=== PATIENT | female | born 1965 | race Caucasian/White ===

== ENCOUNTER 2018-03-22 01:24 | Inpatient (IN) | payer BC, SELFPAY ==
[2018-03-22] VITALS (19 sets, daily range): BP systolic 123–152; BP diastolic 64–95; PULSE 60–85; RESP 12–28; TEMP 36.1–36.9; O2SAT 92–100; BMI 47.2
--- NOTE | 2018-03-22 | PATH_ITS ---
[facility] Accession Number: [id number] . 01 Material submitted: . GALLBLADDER AND CONTENTS . 02 Diagnosis: Gallbladder: Cholelithiasis with associated chronic cholecystitis. Small benign lymph node. MRV/03/24/2018 . 02 Electronically signed: . Geovanny Thurman MD, Pathologist NPI- [id number] . 01 Gross description: . Received in formalin, labeled gallbladder and contents, is an opened gallbladder (length-8.2 cm, diameter-3.4 cm) with sarmiento-pink, smooth, shiny serosa and a patent cystic duct. A possible lymph node (0.4 x 0.2 x 0.1 cm) is identified. The lumen contains fragmented brown gritty calculi (4.2 x 2.5 x 1.0 cm in aggregate). The mucosa is lim, smooth and flat. The wall is up to 0.2 cm thick. No nodules, masses or lesions are identified. Section code: (A1) cystic duct resection margin and two serial sections from the body; (A2) two longitudinal sections from the fundus; (A3) one intact lymph node. ([id number]) /MRV . 02 Pathologist provided ICD-10: K80.64 . 02 CPT . 228788 Performed at: 01 [facility] [address] [facility], [place], [place] [id number] MD Jefferson Jones MD Phone: [phone] Performed at: 02 [facility] [address] [place], [place] [id number] MD Pito Pa MD Phone: [phone]
[2018-03-22 02:31] LABS: Alanine Aminotransferase 65 IU/L (9-52); Albumin 4.3 g/dL (3.5-5.0); Albumin Globulin Ratio 1.6 (1.0-2.8); Alkaline Phosphatase 61 U/L (38-126); Aspartate Aminotransferase 46 IU/L (14-36); BUN Creatinine Ratio 13.3 (6-22); Blood Urea Nitrogen 12 mg/dL (7-17); Calcium 9.6 mg/dL (8.4-10.2); Carbon Dioxide 26 mmol/L (22-32); Chloride 105 mmol/L (98-107); Estimated Glomerular Filt Rate > 60.0 mL/min (>60); Globulin 2.7 g/dL (1.7-4.1); Glucose 137 mg/dL (70-100); HEMOLYSIS 21 (0-50); Lipase 161 U/L (23-300); Potassium 3.9 mmol/L (3.4-5.1); Sodium 142 mmol/L (137-145)
[2018-03-22 02:38] LABS: Hematocrit 41.8 % (36-46); Hemoglobin 14.1 g/dL (12.0-16.0); Mean Corpuscular HGB Conc 33.8 % (30-36); Mean Corpuscular Hemoglobin 29.4 PG (26-34); Mean Corpuscular Volume 86.8 fL (80-100); Red Blood Cell Count 4.81 X10^6/uL (4.0-5.2); White Blood Cell Count 8.7 X10^3/uL (4.5-11.0)
[2018-03-22 02:39] LABS: Add Manual Diff / Slide Review NO; Basophils Percent Auto 1.1 % (0-2); Eosinophils Percent Auto 1.1 % (2-4); Lymphocytes Percent Auto 22.4 % (25-40); Monocytes Percent Auto 6.5 % (3-14); Neutrophils Absolute Auto 6000 /uL (3000-5900); Neutrophils Percent Auto 68.9 % (50-75); Platelet Count 185 X10^3/uL (150-400)
[2018-03-22 02:47] LABS: Troponin I < 0.012 ng/mL (0.01-0.034)
[2018-03-22] MEDS: ONDANSETRON 4 MG/2 ML INJ IV (02:53)
[2018-03-22] MEDS: PANTOPRAZOLE 40 MG VIAL IV (02:53)
[2018-03-22] MEDS: MORPHINE 2 MG/ML INJ IV ×6 (02:53→22:38)
--- NOTE | 2018-03-22 02:54 | ED.ABDPAIN ---
HPI - Abdominal Pain General Chief Complaint: Abdominal Pain Stated Complaint: THINKS SHES HAVING GALLBLADDER ISSUES Time Seen by Provider: 03/22/18 02:16 Source: patient Mode of arrival: ambulatory Limitations: no limitations History of Present Illness HPI narrative: patient is a 53-year-old female who presents with right upper quadrant pain. She said it woke her from her sleep and she has been vomiting nonstop. She was well earlier in the day without any issues. She had a couple vital is on and some soup for dinner. She says she has a known history of gallstones but they have not really been causing any problems. She says her pain is radiating around her back not really up to her shoulder. No shortness of breath chest pain or heart palpitations. MD complaint: abdominal pain Related Data Home Medications Medication Instructions Recorded Confirmed LEVOTHYROXINE SODIUM 100 mcg PO QDAY #0 08/17/11 03/22/18 MULTIVITAMIN (One Daily 1 tab PO Q DAY #0 08/17/11 03/22/18 Multivitamin) cetirizine [Zyrtec] 10 mg PO DAILY 03/22/18 03/22/18 exenatide microspheres [Bydureon] 2 mg SUB-Q WEEKLY 03/22/18 03/22/18 metformin 1,000 mg PO BID 03/22/18 03/22/18 naltrexone 50 mg PO BID 03/22/18 03/22/18 rosuvastatin 40 mg PO BEDTIME 03/22/18 03/22/18 ursodiol 300 mg PO BID 03/22/18 03/22/18 zonisamide 100 mg PO BID 03/22/18 03/22/18 Allergies Allergy/AdvReac Type Severity Reaction Status Date / Time hydrocodone [HYDROCODONE] Allergy Severe HALLUCINATI Verified 03/22/18 06:54 ON aspirin [ASPIRIN] Allergy Mild RED SPOTS Verified 03/22/18 06:54 ALL OVER HER BODY ibuprofen [IBUPROFEN] Allergy Mild RED SPOTS Verified 03/22/18 06:54 ALL OVER HER BODY Review of Systems Review of Systems GENERAL: Denies chills, fatigue, malaise, fever, sweats, travel HEENT: Denies sinus pain, ear pain, sore throat, difficulty swallowing, neck pain RESPIRATORY: Denies dyspnea, cough, wheezing, hemoptysis, sputum. CARDIOVASCULAR: Denies chest pain, palpitations, orthopnea, edema GASTROINTESTINAL: See HPI : Denies dysuria, frequency, incontinence, hematuria, urinary retention, flank pain. MUSCULOSKELETAL: Denies weakness, joint pain, or bony pain SKIN: No rash, no erythema, no pruritus NEUROLOGIC: Denies weakness, dizziness, headache, numbness, change in speech, confusion PSYCHIATRIC: No concerning psychosocial issues. 12 point review of systems is negative except for those stated above and HPI [facility] Medical History Hypothyroid (Acute) Exam Initial Vital Signs Initial Vital Signs: Vital Signs Temperature 97.6 F 03/22/18 01:46 Pulse Rate 62 03/22/18 01:46 Respiratory Rate 18 03/22/18 01:46 Blood Pressure 150/76 H 03/22/18 01:46 Pulse Oximetry 100 03/22/18 01:46 GENERAL: female actively vomiting HEENT: Head atraumatic,EOMI, pupils reactive, CARDIOVASCULAR: Regular rate and rhythm without murmurs, rubs or gallops. RESPIRATORY: Breath sounds equal bilaterally, no wheezes rales or rhonchi. ABDOMEN: Soft, obese positive Jiménez sign no right lower quadrant pain no guarding no rebound : No CVA tenderness EXTREMITIES: Normal range of motion, no clubbing or edema. Neurovascularly intact NEUROLOGICAL: Alert and oriented x4.Normal gait and speech. Cranial nerves II through XII grossly intact. SKIN: Warm, dry, no laceration, no petechiae, no rashes or lesions. Course Orders Ordered: ED Orders 03/22/18 EKG-12 Lead Routine 03/22/18 02:22 CBC [Complete Blood Count AUTO DIFF] Stat CMP [Comprehensive Metabolic Panel] Stat Lipase Stat Troponin I Stat 03/22/18 03:15 US abdomen complete Stat Discontinued Medications Levofloxacin (Levaquin) 750 mg in 150 mls @ 100 mls/hr IV NOW ONE Stop: 03/22/18 06:38 Last Admin: 03/22/18 05:30 Dose: 100 mls/hr Morphine Sulfate (Morphine) 2 mg IV NOW ONE Stop: 03/22/18 02:47 Last Admin: 03/22/18 02:53 Dose: 2 mg Morphine Sulfate (Morphine) 2 mg IV NOW ONE Stop: 03/22/18 04:25 Last Admin: 03/22/18 04:26 Dose: 2 mg Ondansetron HCl (Zofran) 4 mg IV NOW ONE Stop: 03/22/18 02:43 Last Admin: 03/22/18 02:53 Dose: 4 mg Pantoprazole Sodium (Protonix) 40 mg IV NOW ONE Stop: 03/22/18 02:47 Last Admin: 03/22/18 02:53 Dose: 40 mg Consultations Consultation #1: Dr. Hernandez, Surgery agrees cholecystectomy is necessary. Recommend admission to hospitalists and a dose of broad-spectrum IV antibiotics Consultation #2: accepts patient Time: 06:57 Consultation #3: patient is actually a doctor cousins patient. Dr. Cotto happily accepts patient for admission. Time: 06:57 Vital Signs - 8 hr 03/22/18 01:46 03/22/18 02:41 03/22/18 06:41 Temperature 97.6 F Pulse Rate 62 61 64 Respiratory Rate 18 28 H Blood Pressure 150/76 H Blood Pressure [Right Arm] 127/73 H Pulse Oximetry 100 96 95 MDM - Abdominal Pain Lab Data Result diagrams: 03/22/18 02:22 03/22/18 02:22 Lab Results 03/22/18 03/22/18 Range/Units 02:22 02:22 WBC 8.7 (4.5-11.0) X10^3/uL RBC 4.81 (4.0-5.2) X10^6/uL Hgb 14.1 (12.0-16.0) g/dL Hct 41.8 (36-46) % MCV 86.8 (80-100) fL MCH 29.4 (26-34) PG MCHC 33.8 (30-36) % RDW 15.0 H (11.6-14.8) % Plt Count 185 (150-400) X10^3/uL Neut % (Auto) 68.9 (50-75) % Lymph % (Auto) 22.4 L (25-40) % [place]racken % (Auto) 6.5 (3-14) % Eos % (Auto) 1.1 L (2-4) % Baso % (Auto) 1.1 (0-2) % Neut # (Auto) 6000 H (5911-5803) /uL Sodium 142 (137-145) mmol/L Potassium 3.9 (3.4-5.1) mmol/L Chloride 105 (98-107) mmol/L Carbon Dioxide 26 (22-32) mmol/L BUN 12 (7-17) mg/dL Creatinine 0.90 (0.52-1.04) mg/dL Estimated GFR > 60.0 (>60) mL/min BUN/Creatinine Ratio 13.3 (6-22) Glucose 137 H (70-100) mg/dL Calcium 9.6 (8.4-10.2) mg/dL Total Bilirubin 1.0 (0.2-1.3) mg/dL AST 46 H (14-36) IU/L ALT 65 H (9-52) IU/L Alkaline Phosphatase 61 (38-126) U/L Troponin I < 0.012 (0.01-0.034) ng/mL Total Protein 7.0 (6.3-8.2) g/dL Albumin 4.3 (3.5-5.0) g/dL Globulin 2.7 (1.7-4.1) g/dL Albumin/Globulin Ratio 1.6 (1.0-2.8) Lipase 161 (23-300) U/L Imaging Data US - abdomen: Radiologist's impression: Nightshift: cholelithiasis. hepatosplenomegaly. Hepatic steatosis gallstone lodged in region of the neck. 3.3 mm thickness. ECG Data Attestation: I personally reviewed and interpreted this ECG as follows: Prior ECG tracings: available for review Interpretation: sinus bradycardia rate [address] changes normal intervals Discharge Plan Departure Patient Disposition: Admitted as Observation Clinical Impression: Cholelithiasis Interventions: ED Discharge Assessment Last Done: 03/22/18 06:53
--- NOTE | 2018-03-22 03:15 | DI.US.S_ITS ---
PROCEDURE: US ABDOMEN COMPLETE INDICATIONS: ruq pain TECHNIQUE: Real-time scanning was performed of the abdominal and retroperitoneal organs, with image documentation. COMPARISON: [facility], CT, KIDNEY/ URETER/BLADDER, 08/03/2014, 14:38. FINDINGS: Liver: Liver is diffusely increased in echogenicity. No focal hepatic abnormalities identified. Normal hepatic size. Gallbladder: Several gallstones are present, one of which may be impacted within the gallbladder neck/cystic duct measure 1.2 cm. Gallbladder wall is mildly thickened measuring 3.3 mm. Possible trace pericholecystic fluid present and positive sonographic Jiménez sign. Biliary ducts: Intrahepatic bile ducts are non-dilated. Extrahepatic bile duct caliber measures 9.0 mm. Normal is 6-7 mm or less in diameter, or 10 mm or less post-cholecystectomy. Pancreas: Visualized portions of the pancreas are sonographically normal. Spleen: Spleen is enlarged in size and homogeneous in echotexture. Kidneys: Kidneys are normal in size and echotexture. Right kidney measures 13.1 cm long; left kidney measures 10.7 cm long. No hydronephrosis or nephrolithiasis. No solid masses. Aorta: Not visualized. Iliacs: Not visualized. IVC: Intrahepatic inferior vena cava is patent. Miscellaneous: No free abdominal fluid. IMPRESSION: 1. Increased hepatic echogenicity noted possibly related to hepatic steatosis but other sources of hepatocellular disease cannot be excluded. Recommend clinical correlation. 2. Cholelithiasis with probable gallstone impaction within the gallbladder neck or cystic duct as well as mild gallbladder wall thickening and pericholecystic fluid. Sequela of findings suggest the possibility of developing cholecystitis 3. Prominence of the extrahepatic bile duct and bile duct stone and/or other pathology cannot be excluded. Correlate with LFTs. Dr. Parikh telephoned with results at 0800 hrs. 03/22/2018. Dictated by: Alejandro LIZ Interpreted: Barbra Alaniz MD on 03/22/2018 at 7:54 Approved by: Barbra Alaniz M.D. on 03/22/2018 at 15:05
[2018-03-22] MEDS: levoFLOXacin 750 MG/150 ML PIGGYBACK 100 MG IV (05:30)
--- NOTE | 2018-03-22 08:00 | PC.NURSE ---
White metal ring with multiple clear stone x 2;
--- NOTE | 2018-03-22 08:51 | PM.HP.1 ---
History of Present Illness Date Patient Seen: 03/22/18 Time Patient Seen: 08:54 Chief complaint: THINKS SHES HAVING GALLBLADDER ISSUES Narrative: Patient is a 53-year-old woman with a history of impaired fasting glucose/diabetes type 2, well known to me, presented to the emergency room after approximately 12 hr of epigastric abdominal pain. Patient reports that she had a nice meal last night, and she started having pain. the pain continued to radiate to her back throughout the evening, even after taking antacids. No fever chills. She did have some vomiting in the emergency room. In the emergency room, patient was found to have a stone in the neck of the gallbladder and felt to be the etiology of the patient's symptoms. Patient was admitted in anticipation of a cholecystectomy. Patient History Medical History Hypothyroid (Acute) Impaired fasting glucose (Acute) Post hysterectomy menopause (Acute) Surgical History S/P (Acute) S/P small bowel resection (Acute) Family & Social History Family History: Reviewed 03/22/18 by Dipika Olivera MD Social History: Occasional alcohol. Does not smoke. Meds Home Medications Medication Instructions Recorded Confirmed Type LEVOTHYROXINE SODIUM 100 mcg PO QDAY #0 08/17/11 03/22/18 History MULTIVITAMIN (One Daily 1 tab PO Q DAY #0 08/17/11 03/22/18 History Multivitamin) cetirizine [Zyrtec] 10 mg PO DAILY 03/22/18 03/22/18 History exenatide microspheres [Bydureon] 2 mg SUB-Q WEEKLY 03/22/18 03/22/18 History metformin 1,000 mg PO BID 03/22/18 03/22/18 History naltrexone 50 mg PO BID 03/22/18 03/22/18 History rosuvastatin 40 mg PO BEDTIME 03/22/18 03/22/18 History ursodiol 300 mg PO BID 03/22/18 03/22/18 History zonisamide 100 mg PO BID 03/22/18 03/22/18 History Allergies Allergy/AdvReac Type Severity Reaction Status Date / Time hydrocodone [HYDROCODONE] Allergy Severe HALLUCINATI Verified 03/22/18 06:54 ON aspirin [ASPIRIN] Allergy Mild RED SPOTS Verified 03/22/18 06:54 ALL OVER HER BODY ibuprofen [IBUPROFEN] Allergy Mild RED SPOTS Verified 03/22/18 06:54 ALL OVER HER BODY Review of Systems Review of Systems All systems reviewed & are unremarkable except as noted in HPI and below Exam Vital Signs (past 8 hours): - GENERAL: Well-developed well-nourished woman who appears uncomfortable. HEENT: Normocephalic, atraumatic, pupils equal and reactive to light and accommodation. Extraocular movements are intact. Neck supple, no lymphadenopathy. LUNG: Clear to auscultation bilaterally. No wheeze or crackles or rhonchi. No increased work in breathing. CV: Regular rate and rhythm. No murmurs rubs or gallops. ABDOMEN: SOFT DIFFUSELY TENDER. DEFINITE EPIGASTRIC TENDERNESS. AFFECT: Alert and oriented X3. Conversational and appropriate. 03/22/18 01:46 03/22/18 02:41 03/22/18 06:41 Temperature 97.6 F Pulse Rate 62 61 64 Respiratory Rate 18 28 H Blood Pressure 150/76 H Blood Pressure [Right Arm] 127/73 H Pulse Oximetry 100 96 95 03/22/18 07:15 03/22/18 07:58 Temperature 98.4 F 98.4 F Pulse Rate 64 68 Respiratory Rate 16 18 Blood Pressure 126/64 H Blood Pressure [Right Arm] 124/64 H Pulse Oximetry 98 Oxygen Delivery Method Room Air Objective Labs Result Diagrams: 03/22/18 02:22 03/22/18 02:22 Labs: Laboratory Results - last 24 hr 03/22/18 03/22/18 02:22 02:22 WBC 8.7 RBC 4.81 Hgb 14.1 Hct 41.8 MCV 86.8 MCH 29.4 MCHC 33.8 RDW 15.0 H Plt Count 185 Neut % (Auto) 68.9 Lymph % (Auto) 22.4 L [place] % (Auto) 6.5 Eos % (Auto) 1.1 L Baso % (Auto) 1.1 Neut # (Auto) 6000 H Sodium 142 Potassium 3.9 Chloride 105 Carbon Dioxide 26 BUN 12 Creatinine 0.90 Estimated GFR > 60.0 BUN/Creatinine Ratio 13.3 Glucose 137 H Calcium 9.6 Total Bilirubin 1.0 AST 46 H ALT 65 H Alkaline Phosphatase 61 Troponin I < 0.012 Total Protein 7.0 Albumin 4.3 Globulin 2.7 Albumin/Globulin Ratio 1.6 Lipase 161 Assessment & Plan (1) Hypothyroid: Current visit: Yes Status: Acute (2) Cholelithiasis: Qualifiers: Biliary obstruction: without biliary obstruction Cholangitis acuity: Cholangitis presence: Cholecystitis acuity: Cholecystitis presence: without cholecystitis Cholelithiasis location: gallbladder Qualified Code(s): K80.20 - Calculus of gallbladder without cholecystitis without obstruction Current visit: Yes Status: Acute Plan: Assessment/Plan Narrative: 1. Symptomatic cholelithiasis. Anticipate cholecystectomy. Continue Levaquin as ordered per the ER. Surgery consulted. 2. Diabetes type 2. Patient previously on metformin. Will do a low dose sliding scale for now when patient starts taking p.o. will restart metformin. Patient is also on a biweekly injectable at will hold this until patient is taking p.o.. 3. Hypothyroidism. Restart levothyroxine postoperatively. 4. Naltrexone. Would recommend holding until patient is no longer on narcotics of course, and her pain is well controlled. 5. Zonegran use. Will restart when patient able to take p.o.. 6. Code status full code 7. DVT prophylaxis. Per surgery. 8. Anticipate discharge when patient is stable postoperatively.
--- NOTE | 2018-03-22 10:45 | PC.NURSE ---
0865 Pt arrived to room 210 via stretcher from ED. Pt A,OX3, denies pain at this time. IV fluids infusing. 1045 Pt son at bedside now. Pt sched for surgery today. No c/o.
--- NOTE | 2018-03-22 11:10 | PC.NURSE ---
1108 Pt gone to OR via bed.
--- NOTE | 2018-03-22 11:55 | SUR.OPER ---
Supine on padded OR bed, head on pillow, arms secured on padded arm boards at <90 degrees abduction, legs uncrossed, safety belt at thigh, tape over blanket over lower legs. footboard on bed
--- NOTE | 2018-03-22 12:09 | CM.DANOTE ---
DCP/Assessment: Patient admitted to [facility] under OBS status today. BARREL CAP SETTER unable to assess because patient leaving floor this AM for surgery. EMR reviewed and brief assessment based on that information completed (below). P: CM team to continue to follow for d/c planning needs. Anticipate that patient will d/c home when medically stable. JARETT Boogie Discharge Planning/Care Management CM Discharge Assessment Start: 03/22/18 12:02 Freq: Status: Active Protocol: Document 03/22/18 12:03 KJS (Rec: 03/22/18 12:09 [facility] [id number]) Discharge Planning Assessment Assigned Machine Maintenance Technician JARETT/Carole History Provided By Medical Record Has Patient been admitted in last 30 No days? Prior Living Arrangements House Household Members spouse children Comment Per medical record, patient I in ADL's. Independent with ADL's Yes Is patient alert and oriented? Unable to interview, off floor for surgery. Discharge Plan Home Additional Comment Reviewed chart. Patient is a 53yr old female admitted to [facility] under OBSs status with abdominal pain. PCP is Dr. Olivera. Primary payor is 1) [facility] out of [facility]. Attempted to meet with patient this AM. Patient came into [facility] Emergency Department through the night. Patient headed off floor for lap terri with Dr. Alvarez therefore, could not see today. It is anticipated that patient will d/c home with supportive family when medically stable. Review Status In Process Next Review Type Continued Stay Review
[2018-03-22] MEDS: BUPIVACAINE 0.5% W/ EPI (PF) VIAL 30 ML INJ (12:21)
[2018-03-22] MEDS: HYDROMORPHONE 2 MG INJ 0.5 MG IV ×4 (13:12→13:27)
[2018-03-22] MEDS: fentaNYL 100 MCG/2 ML INJ 50 MCG IV ×4 (13:29→14:09)
[2018-03-22] MEDS: ACETAMINOPHEN 325 MG TABLET PO (13:41)
--- NOTE | 2018-03-22 14:24 | PC.NURSE ---
1420 Pt returned to room post op Lap eugenia,PACU, Pt is sleepy, easily aroused. 5 lap sites to abd, sabags intact. Pt has a C pap at home, the son is to go home & bring in for use. Pt on O2 4LNC, sats 95%. Visitors at bedside. VS WNL.
[2018-03-22] MEDS: LACTATED RINGERS 1,000 ML 42 ML IV (16:00)
[2018-03-22] MEDS: LORazepam 1 MG TABLET PO (16:30)
--- NOTE | 2018-03-22 17:04 | HP_ITS ---
DATE OF SERVICE: 03/22/2018 HISTORY OF PRESENT ILLNESS: She was admitted in the snuff blender hours of 03/22/2018, admitted actually by the hospitalist, who probably also has a history and physical. This is a brief surgically directed history and physical. She is a 53-year-old white female patient who had the acute onset of right upper quadrant abdominal pain last night. Never has had this before. The pain became centered in the epigastrium and then piercing into the right subscapular area and the right flank. It was severe. She came in the emergency room about 1 o'clock this morning. Among other things, her laboratory and imaging revealed that she has impacted gallstones in the neck of the gallbladder with some thickening. No pericholecystic fluid. She has a normal white count. She has had numerous prior abdominal operations involving a partial hysterectomy, which then became complicated with what sounds like a partial bowel obstruction and then a partial small bowel resection. So she therefore has had numerous lower abdominal procedures through a Pfannenstiel incision. She has had no midline surgery. I have explained to her in great detail whereas we will attempt cholecystectomy with a laparoscope, that it is possible that we may have to do open surgery to remove her gallbladder. She understands that completely and agrees to the procedure. She has been in the hospital now for a few hours and has received IV Zosyn. She is morbidly obese with a BMI of 44 and has diabetes related to metabolic syndrome and takes metformin for that. She also takes thyroid medication and a combination of medications to help stimulate her own insulin production. She does not have her medication list with her. ALLERGIES: SHE HAS KNOWN ALLERGIES TO ASPIRIN AND IBUPROFEN. REVIEW OF SYSTEMS: System review is negative for exertional chest pain or unusual shortness of breath. GI: As mentioned in HPI. : As mentioned also in HPI. RANCH SUPERVISOR: Again, mentioned in HPI. NEUROLOGIC: Denies strokes, TIAs, or seizures. PHYSICAL EXAMINATION VITAL SIGNS: Blood pressure 130/80, heart rate in the 80s. HEENT: Ears, nose, and throat are normal. NECK: No adenopathy. LUNGS: Distant breath sounds. No rales or wheezes. HEART: Regular rhythm. No murmur. ABDOMEN: She is morbidly obese. Has no organomegaly that is palpable. She has some moderate right subcostal tenderness. No masses appreciated. The remaining physical is unremarkable except for her morbid obesity. DIAGNOSES: Acute cholecystitis and cholelithiasis with impacted cystic duct stone. We have noted on her ultrasound that her common duct is normal, and her liver chemistries are normal. PLAN: We are planning a laparoscopic cholecystectomy with no cholangiogram. WagnerNegar marcelino - Vince/hussain doc#: [id number]/job#: [id number] dd: 03/22/2018 10:36:00 dt: 03/22/2018 16:50:00 DICTATING MD/COPIES TO: Man Hernandez MD COPIES MNE: CESAR
[2018-03-23] VITALS (13 sets, daily range): BP systolic 138–162; BP diastolic 78–107; PULSE 65–109; RESP 14–20; TEMP 36.2–37; O2SAT 89–96
[2018-03-23] MEDS: MORPHINE 2 MG/ML INJ IV ×7 (02:27→17:46)
--- NOTE | 2018-03-23 07:58 | OP_ITS ---
DATE OF SERVICE: 03/22/2018 PREOP DIAGNOSES: Acute cholecystitis with impacted cystic duct stone. POSTOP DIAGNOSES: Acute cholecystitis with impacted cystic duct stone. PROCEDURE: Laparoscopic cholecystectomy. SURGEON: Man Hernandez MD INDICATIONS: The patient is morbidly obese with a BMI of 47. She had an impacted cystic duct stone noted on emergency room sonography and is prepared for laparoscopic cholecystectomy. She is aware that she may need an open procedure because of prior abdominal surgery and her marked obesity. DESCRIPTION OF PROCEDURE: The patient was properly identified during a surgical pause. Under general endotracheal anesthesia, she was prepped and draped in a sterile fashion with exposure of the upper abdomen. A 5 mm incision was made above and to the right of the umbilicus. Using an Optiview direct view port, port entry was placed into the peritoneal cavity without any visceral injury and pneumoperitoneum safely established. Because of her massive size, I placed 4 additional right upper quadrant ports, , and the rest were 5's. The larger ports, one for the operating instruments, and the other for a fan retractor to hold the duodenum and omentum away from the klaudia hepatis. Once exposure was gained, I aspirated the gallbladder. It was acutely inflamed and very edematous, early hydrops. I cauterized a hole in the dome of the gallbladder and then aspirated the contents. Then, I was able to grasp the gallbladder and elevate it to the right shoulder of the patient. Using the fan retractor, then I could hold the duodenum down, and I could see the klaudia hepatis, finally, and carefully dissected the very edematous cholecystoduodenal ligament to the critical view of the cystic duct and cystic artery and Calot's [place]. The cystic duct was traced exactly into the gallbladder itself and closed with multiple clips. The cystic duct was then divided, leaving at least 3 clips with the patient. The cystic artery was then identified and closed with multiple clips, divided, leaving several with the patient. There was no bleeding and no bile leak. Then I was able to see the common duct, and it was clear of any signs of injury. This area was aspirated. There was no bleeding and no bile leak. The gallbladder was then elevated and dissected away from the liver bed with meticulous hemostasis using the Bovie electrocautery. The gallbladder and its contents were removed, and the operative site was irrigated with a liter of sterile saline and aspirated dry. There was no bleeding and no bile leak. Trocars were removed under direct vision. There was no bleeding. The skin was stapled. A sterile dressing was applied. I did close the fascia and the epigastric port with 0 Vicryl. The skin closure was with kev throughout. The procedure was very well tolerated. Negar Wagner - Vince/hussain doc#: [id number]/job#: [id number] dd: 03/22/2018 12:57:00 dt: 03/22/2018 17:03:00 DICTATING /COPIES TO: Man Hernandez MD COPIES MNE: CESAR
[2018-03-23] MEDS: LORazepam 1 MG TABLET PO (09:10)
[2018-03-23] MEDS: TRAMADOL 50 MG TABLET 100 MG PO ×2 (10:40→15:41)
[2018-03-23 11:21] LABS: Add Manual Diff / Slide Review NO; Basophils Percent Auto 0.6 % (0-2); Hematocrit 44.1 % (36-46); Hemoglobin 14.7 g/dL (12.0-16.0); Mean Corpuscular HGB Conc 33.3 % (30-36); Mean Corpuscular Hemoglobin 29.2 PG (26-34); Mean Corpuscular Volume 87.8 fL (80-100); Monocytes Percent Auto 6.7 % (3-14); Neutrophils Absolute Auto 11600 /uL (3000-5900); Neutrophils Percent Auto 86.7 % (50-75); Platelet Count 248 X10^3/uL (150-400); Red Blood Cell Count 5.02 X10^6/uL (4.0-5.2); Red Cell Distribution Width 15.5 % (11.6-14.8); White Blood Cell Count 13.4 X10^3/uL (4.5-11.0)
[2018-03-23] MEDS: levoFLOXacin 750 MG/150 ML PIGGYBACK 100 MG IV (11:47)
[2018-03-23] MEDS: INSULIN ASPART 100 UNIT/ML INSULN PEN SUBCUT (12:30)
--- NOTE | 2018-03-23 13:25 | PN_ITS ---
DATE OF SERVICE: 03/23/2018 The patient is 24 hours post laparoscopic cholecystectomy. She is afebrile. Normal vital signs. Heart rate 74, respirations 20, blood pressure 145/88. The patient is complaining of a good deal of abdominal pain still, mostly right subcostal pain and right shoulder pain, which is characteristic of a laparoscopy, particularly laparoscopic cholecystectomy. On exam, she is anicteric. There is no sign of jaundice. No scleral icterus. No cutaneous jaundice. Her abdomen is massively obese. She has a BMI of almost 48. It is 47.8. It is difficult to evaluate her based on physical exam. She does have positive bowel sounds. She is complaining of more than the normal amount of abdominal pain, which gives me some concern for possible visceral injury from a trocar, although I was not concerned about that during the procedure. Because of that, I am going to continue her IV Levaquin. We gave her 750 mg preop. I am going to give her another dose today. I am going to keep her in the hospital and carefully observe her for any abdominal sepsis picture. I have ordered a CBC, and we will continue allowing her to have p.o. fluids and small amounts of food. I do not think she has a visceral injury, but she does have more than the normal amount of pain from a laparoscopic cholecystectomy. So, that is our plan: IV Levaquin, check a CBC, and continue to observe her. She is diabetic, by the way. Her blood sugar was 114 this morning. Negar Wagner - Vince/hussain doc#: [id number]/job#: [id number] dd: 03/23/2018 10:59:00 dt: 03/23/2018 13:17:00 DICTATING /COPIES TO: Man Hernandez MD COPIES MNE: CESAR
--- NOTE | 2018-03-23 13:36 | PC.NURSE ---
Pt is now finaly resting quietly in bed, eyes closed, even resp pattern noted, son Bennie at bedside. After much reluctance Pt agreed to be oob to chair, and then up in [place] for ambulation.x 2. Pt c/o R shoulder pain, placed ice to site, c/o abd spasms with movement. Pt has been medcated w/IV MS x 3 po Ativan, Po Tramodol,. updated , Labs drawn, antibx started.
--- NOTE | 2018-03-23 14:31 | PM.PN.1 ---
Subjective Date Patient Seen: 03/23/18 Time Patient Seen: 11:31 Interval history: Patient seems to be quite uncomfortable. She seems to be splinting her breathing. Seen by surgery and further evaluation ordered. Nevertheless, patient has been on naltrexone and may have some resistance to narcotics. Nursing reports that when patient seems to calm down, her pain improves. Patient has been up to the bathroom. Seems to be tolerating some clear liquids. Exam Vital Signs (past 8 hours): GENERAL: Well-developed obese woman, uncomfortable in bed HEENT: Normocephalic, atraumatic, pupils equal and reactive to light and accommodation. LUNG: Clear to auscultation bilaterally. No wheeze or crackles or rhonchi. Patient is splinting, is able to cough. CV: Regular rate and rhythm. No murmurs rubs or gallops. ABDOMEN: SOFT, APPROPRIATELY TENDER. WOUNDS ARE CLEAN DRY AND INTACT. LOWER EXTREMITIES: VERY MILD LOWER EXTREMITY EDEMA., BUT AGAIN THIS IS VERY MILD AFFECT: Alert and oriented X3. Conversational and appropriate. - 03/23/18 06:43 03/23/18 08:00 03/23/18 12:00 Temperature 98.1 F 97.8 F Pulse Rate 74 84 Respiratory Rate 20 20 Blood Pressure 145/88 H 159/107 H Pulse Oximetry 95 94 94 Oxygen Delivery Method Nasal Cannula Oxygen Flow Rate 2 Objective Labs Result Diagrams: 03/23/18 11:10 03/22/18 02:22 Labs: Laboratory Results - last 24 hr 03/23/18 11:10 WBC 13.4 H D RBC 5.02 Hgb 14.7 Hct 44.1 MCV 87.8 MCH 29.2 MCHC 33.3 RDW 15.5 H Plt Count 248 Neut % (Auto) 86.7 H Lymph % (Auto) 6.0 L [place] % (Auto) 6.7 Eos % (Auto) 0.0 L Baso % (Auto) 0.6 Neut # (Auto) 35991 H Assessment & Plan Plan: Assessment/Plan Narrative: 1. STATUS POST CHOLECYSTECTOMY. PAIN MANAGEMENT PER SURGERY. I WILL ORDER SOME VISTARIL TO SEE IF THIS HELPS WITH PATIENT'S SYMPTOMS. NO DOUBT NALTREXONE ON MAY BE PLAYING A ROLE IN PATIENT'S DISCOMFORT, although this is certainly difficult to say. 2. Impaired fasting glucose. Patient's blood sugars seem to be within the normal range at this point continue insulin sliding scale. Anticipate the patient will be tolerating p.o. and will be able to return to p.o. metformin in a day or 2. 3. DVT prophylaxis. Will order Lovenox. Quality VTE Deep Vein Thrombosis/Pulmonary Embolism Present on Admission: No
[2018-03-23] MEDS: hydrOXYzine pamoate 25 MG CAPSULE PO ×2 (15:41→23:26)
[2018-03-23] MEDS: LACTATED RINGERS 1,000 ML 42 ML IV (17:46)
--- NOTE | 2018-03-23 18:41 | PC.NURSE ---
Pt requests pain medications @ beginning of shift. Discussed with pt plan to administer tramadol and vistaril as ordered. Explained oral analgesia can be longer lasting than iv pain medications. Pt accepts this explanation. Meds given as per emar. Encouraged pt to use I.S. W/A and CPAP with sleep. CPAP set up and within pt's reach. Pt dozes quietly until family arrives and pt requests pain meds. Pt states feels only iv medications work to manage pain to right shoulder and incisional sites to abdomen. Warm blanket to shoulder. Pillow to splint abdomen. Continuous pulse oximeter placed as pt not using CPAP as suggested. Room air 90-91%. Placed pt on 2L per nc and sats increase to 96%. Resting quietly s/p morphine administration.
[2018-03-23] MEDS: ENOXAPARIN 40 MG/0.4 ML SYRINGE SUBCUT (20:35)
[2018-03-23] MEDS: LORazepam 1 MG TABLET 2 MG PO (20:40)
--- NOTE | 2018-03-23 23:33 | PC.NURSE ---
Pt denies pain when asked following ativan administration. Is able to rest with 02 2L per nc in place with continuous pulse oximeter in place. IV infiltrate right hand and so this was dc'd. Left hand IV site established and fluids resumed. Pillow to abdomen to splint.
[2018-03-24] MEDS: TRAMADOL 50 MG TABLET 100 MG PO ×4 (00:03→15:06)
[2018-03-24 00:05] VITALS: BP 139/92; PULSE 94; RESP 28; TEMP 36.8; O2SAT 92
--- NOTE | 2018-03-24 00:15 | PC.NURSE ---
Addendum entered by Janice Busby R.N. 03/24/18 06:25: Slept after receiving Morphine and had FLACC score of 0. This morning states pain is 6/10; medicated with Tramadol after which she started feeling slightly nauseated but without emesis. Provided with gingerale and saltines but reminded to go slow so as not to exacerbate nausea. Original Note: Addendum entered by Janice Busby R.N. 03/24/18 02:33: Slept after taking Tramadol, but now awake and states pain is again 6/10; medicated with Morphine as too early to repeat the other pain medications. Original Note: Patient is alert and oriented although somewhat drowsy having received Vistaril at shift change. Breath sounds with inspiratory crackles in right lobes. On oxygen at 2L/min per NC as refusing to use CPAP; sat 88-89% with activity and 92% at rest. HRR but tachy in low 100's. Denies nausea. BT hypoactive and denies flatus. Abdomen is distended and tender to touch. Bowel sounds are tympanic. Denies dysuria, frequency, urgency or incontinence and is getting up to BSC with 2 assist and walker. Able to turn self in bed with great effort but will not stay lying on side. Dressings x 5 to right abdomen are all CDI. 1+ bilateral LE edema noted. Wearing bilateral SCD's. States pain is still 4/10 after receiving Vistaril, so medicated with Tramadol. Fall risk score is high and bed alarm is activated.
[2018-03-24] MEDS: MORPHINE 2 MG/ML INJ IV ×2 (02:31→19:06)
[2018-03-24 06:27] VITALS: BP 156/98; PULSE 91; RESP 24; TEMP 36.9; O2SAT 91
[2018-03-24] MEDS: hydrOXYzine pamoate 25 MG CAPSULE PO (08:43)
[2018-03-24 08:50] VITALS: BP 144/99; PULSE 83; RESP 20; TEMP 36.7; O2SAT 91
[2018-03-24] MEDS: LACTATED RINGERS 1,000 ML 84 ML IV (09:20)
[2018-03-24] MEDS: LACTATED RINGERS 1,000 ML 42 ML IV (10:15)
[2018-03-24] MEDS: levoFLOXacin 750 MG/150 ML PIGGYBACK 100 MG IV (10:33)
--- NOTE | 2018-03-24 11:14 | PN_ITS ---
DATE OF SERVICE: 03/24/2018 SUBJECTIVE: The patient is 2 days postoperative laparoscopic cholecystectomy, being observed in the hospital because the first day postoperative she had an inordinate amount of abdominal pain, inconsistent with normal laparoscopic cholecystectomy. Subjectively today, she feels much better than yesterday. Rates her pain between 3 and a 5, definitely has improved since yesterday. She is tolerating some clear liquids, although she did have some nausea this morning. She has had no flatus or bowel movement. She has remained completely afebrile since surgery. This morning's temperature is 98.1, heart rate in the 80s, and she is ambulating in the halls better today. OBJECTIVE: On physical exam, again, she is afebrile. She is anicteric. No scleral or cutaneous icterus. Abdominal exam reveals massive morbid obesity. Difficult to evaluate her on physical exam. Her trocar sites have a normal amount of tenderness. There is no ecchymosis or any sign of bleeding. Lower abdominal exam is nontender. She has appropriate tenderness in the right upper quadrant around the 5 trocar sites. She is receiving subcutaneous Lovenox, although she is ambulatory. We will continue that. She is also receiving IV Levaquin. Given that she had acute cholecystitis and excessive abdominal pain yesterday, I have continued her IV antibiotic therapy and she will get another dose today at 750 daily. LABORATORY DATA: I did a white count yesterday, 13.4 total white count; hemoglobin 14.7; hematocrit 44.1. I do not feel that we need to repeat her labs today. She demonstrates no icterus and is totally afebrile. Again, her heart rate this morning is 83 to 84. IMPRESSION: My plan is to continue observing her 1 more day. We'll give her a Dulcolax suppository to try to stimulate some flatus. She has had previous small bowel resection for obstructing adhesions in the past, so I will try to mitigate her chances of getting another ileus. She appears to be recovering and will continue the same course. I hope to be able to discharge the patient tomorrow. Negar Wagner - Jimena doc#: [id number]/job#: [id number] dd: 03/24/2018 10:06:00 dt: 03/24/2018 11:04:00 DICTATING MD/COPIES TO: Man Hernandez MD COPIES MNE: CESAR
--- NOTE | 2018-03-24 11:22 | PC.NURSE ---
Negar has been up in the chair today for several hours and ambulated once so far in the halls. She is belching, but no flatus yet. Abd. distended, BTs hypoactive. She took a few bites of banana and two sips of juice at brfst., then admitted to nausea. Vistaril PO given with good effect. Will start Reglan per new Rx from . For pain Negar is taking Tramadol. On RA her O2 sats are 91-94%. She can only get her IS up to 500 with great effort. Will continue to encourage mobility and use of IS/ CDB. VSS. Remains afebrile.
[2018-03-24] MEDS: METOCLOPRAMIDE HCL 10 MG TABLET PO ×3 (12:11→20:15)
[2018-03-24 14:33] VITALS: BP 125/93; RESP 20; TEMP 36.8; O2SAT 94
[2018-03-24 15:53] VITALS: BP 141/96; PULSE 98; RESP 17; TEMP 36.9; O2SAT 94
--- NOTE | 2018-03-24 18:34 | PM.PN.1 ---
Subjective Date Patient Seen: 03/24/18 Time Patient Seen: 08:30 Interval history: Patient had just gotten up out of bed and was splinting when I 1st saw her. Patient has O2 on, still having some pain taking deep breaths. Does have a incentive spirometer by her bedside. Blood sugars have been quite reasonable but with minimal p.o. intake. Exam Vital Signs (past 8 hours): GENERAL: Well-developed well-nourished woman who appears both sleepy and uncomfortable. HEENT: Normocephalic, atraumatic, pupils equal and reactive to light and accommodation. LUNG: Clear to auscultation bilaterally. No wheeze or crackles or rhonchi. Splinting with deep breaths CV: Regular rate and rhythm. No murmurs rubs or gallops. AFFECT: Sleepy but alert. - 03/24/18 14:33 03/24/18 15:53 Temperature 98.2 F 98.5 F Pulse Rate 98 H Respiratory Rate 20 17 Blood Pressure 125/93 H 141/96 H Pulse Oximetry 94 94 Oxygen Delivery Method Room Air Oxygen Flow Rate 2 Objective Labs Result Diagrams: 03/23/18 11:10 03/22/18 02:22 Assessment & Plan Plan: Assessment/Plan Narrative: 1. STATUS POST CHOLECYSTECTOMY. Surgery managing. Suspect pain issues may be related to prior naltrexone use. Seems to be improved and nursing will get her up and be a bit more mobile today. 2. Impaired fasting glucose. Continue with an insulin sliding scale at this point, patient is needed minimal. On discharge, she should go home on her metformin. May want to consider restarting Bydureon next week. Low risk of hypoglycemia although with patient's baseline nausea, this may make it somewhat worse. 3. DVT prophylaxis. Will order Lovenox. Quality VTE Deep Vein Thrombosis/Pulmonary Embolism Present on Admission: No
[2018-03-24 19:37] VITALS: BP 129/98; PULSE 96; RESP 16; TEMP 36.8; O2SAT 91
[2018-03-24] MEDS: ENOXAPARIN 40 MG/0.4 ML SYRINGE SUBCUT (20:14)
[2018-03-25] VITALS (7 sets, daily range): BP systolic 127–152; BP diastolic 85–96; PULSE 115–134; RESP 16–22; TEMP 36.1–37; O2SAT 92–123
[2018-03-25] MEDS: TRAMADOL 50 MG TABLET 100 MG PO ×4 (01:32→18:26)
--- NOTE | 2018-03-25 01:49 | PC.NURSE ---
Addendum entered by Janice Busby R.N. 03/25/18 06:02: Patient complaining of 5/10 pain so medicated with Tramadol and warm blanket applied to abdomen. Had her work with I.S. and was able to get up to 1000 on a couple tries but mostly at 500. Up earlier to BSC to urinate and states she still has not passed any flatus. SCD's off for past hour and now reapplied. Original Note: Addendum entered by Janice Busby R.N. 03/25/18 01:53: Complains of 6/10 sharp pain in incisional area; medicated with Tramadol. Original Note: Patient is alert and oriented and much more lucid tonight. Respirations shallow but states she has been using I.S. (reported to only be able to get to 500 by evening RN) and is coughing and splinting incision appropriately. Refuses to use CPAP again tonight and RA sat is 92%; continuous pulse oximetry placed as per MD order. HRR but tachy at 118 bpm. Denies nausea. BT more active but still tympanic sounding and patient denies flatus. Abdomen is distended and tender to touch. Has not had BM since 03/21. Denies urinary problems and has been getting up to BSC with assist. Able to turn self in bed but wants to lie on back. 5 gauze dressings to right abdomen are all CDI. 1+ bilateral LE edema. Agreeable to having SCD's put back on at this time. Fall risk score is high and bed alarm is activated.
[2018-03-25] MEDS: METOCLOPRAMIDE HCL 10 MG TABLET PO ×4 (07:30→20:48)
[2018-03-25] MEDS: BISACODYL 10 MG SUPP PR ×2 (08:33→20:34)
--- NOTE | 2018-03-25 08:59 | PN_ITS ---
DATE OF SERVICE: 03/25/2018 SUBJECTIVE: She is beginning her third postoperative day following a laparoscopic cholecystectomy. She is morbidly obese. It is difficult to get her to move. Still complaining of right upper quadrant pain in the area of her 5 trocars. We had to use 5 trocars because of her massive abdominal size and intraperitoneal fat. She is afebrile, has remained afebrile. She states that her pain is around a 5 this morning. It's difficult to get her to get out of bed and ambulate, but we're doing that. She's had no flatus or bowel movement. She does have numerous intraperitoneal adhesions from previous small bowel resection following a hysterectomy and its complications years ago. OBJECTIVE: Again, she's afebrile. Her skin and sclerae are clear. No jaundice. Abdomen is tender in the right upper quadrant as expected. There is some tenderness in the lower abdomen which is minimal and no other positive findings. IMPRESSION: She is recovering satisfactorily. I do not suspect any intraperitoneal pathology of any significance other than just postoperative changes from laparoscopic cholecystectomy and her 5 trocar sites piercing the anterior abdominal wall. PLAN: To try to stimulate her bowel today. I ordered suppositories yesterday. She did not get them, and so we'll make sure that happens today and possibly discharge her later today or early tomorrow morning. She's tolerating small meals with no nausea or vomiting. Negar Wagner - Vince/ash doc#: [id number]/job#: [id number] dd: 03/25/2018 08:11:00 dt: 03/25/2018 08:53:00 DICTATING /COPIES TO: Man Hernandez MD COPIES MNE: CESAR
[2018-03-25] MEDS: levoFLOXacin 750 MG/150 ML PIGGYBACK 100 MG IV (10:35)
[2018-03-25] MEDS: ACETAMINOPHEN 325 MG TABLET 650 MG PO ×3 (10:36→20:45)
[2018-03-25] MEDS: INSULIN ASPART 100 UNIT/ML INSULN PEN SUBCUT (12:26)
--- NOTE | 2018-03-25 13:04 | PM.PN.1 ---
Subjective Date Patient Seen: 03/25/18 Time Patient Seen: 08:30 Interval history: Patient does seem to be looking a little better today. Still taking minimal p.o.. Reports causes nausea. Continues on Levaquin. Off of oxygen this morning. She did get up and ambulate several times yesterday. Exam Vital Signs (past 8 hours): - GENERAL: Well-developed well-nourished woman who appears uncomfortable HEENT: Normocephalic, atraumatic, pupils equal and reactive to light and accommodation. Extraocular movements are intact. LUNG: Clear to auscultation bilaterally. No wheeze or crackles or rhonchi. No increased work in breathing. CV: Tachycardic. No murmurs rubs or gallops. AFFECT: Alert and oriented X3. Conversational and appropriate. 03/25/18 07:45 Temperature 98.5 F Pulse Rate 123 H Respiratory Rate 22 Blood Pressure 152/93 H Pulse Oximetry 123 H Oxygen Delivery Method Room Air Oxygen Flow Rate 0 Objective Labs Result Diagrams: 03/23/18 11:10 03/22/18 02:22 Assessment & Plan Plan: Assessment/Plan Narrative: 1. STATUS POST CHOLECYSTECTOMY. Postoperative day 3. Seems to be improving. History of naltrexone use which may be impairing patient's recovery. Patient remains on Levaquin. White blood cell count in the normal range at this point, which is reassuring. Encourage ambulation, deep breathing. Currently using tramadol for pain management. Lorazepam for anxiety. 2. Impaired fasting glucose. Continue with an insulin sliding scale at this point, patient is needed minimal. On discharge, she should go home on her metformin. 3. DVT prophylaxis. Lovenox Four. Hypothyroidism. Restart levothyroxine 5. Migraine headaches. Restart Zonegran. 6. Tachycardia - encourage PO intake for now. Consider fluid bolus. Anticipate discharge home in the next 24-48 hours assuming the patient is able to ambulate. Quality VTE Deep Vein Thrombosis/Pulmonary Embolism Present on Admission: No
[2018-03-25] MEDS: LEVOTHYROXINE 100 MCG TABLET PO (14:21)
--- NOTE | 2018-03-25 14:52 | PC.NURSE ---
PT AMBULATED IN ROOM THIS MORNING. AT APPROX 1345 PT STARTED TO AMBULATE IN HALLS AFTER WALKING SEVERAL FEET PT BECAME DIZZY AND HAD TO RETURN TO ROOM. HR 140'S. ONCE SITTING IN CHAIR HR DECREASED TO 115-120, DIZZINESS RESOLVES. BP STABLE. MEDICATING PER EMAR WITH TYLENOL AND TRAMADOL. CONTINUES TO DENY FLATUS.
--- NOTE | 2018-03-25 15:13 | CM.DPC ---
DCP Cont: Reviewed DC plan w/RN and pt; plan remains home but pt has been improving slowly, no bowell tones today, pt is not passing flatus. Following closely in case DC needs or concerns arise. JW
--- NOTE | 2018-03-25 15:47 | PC.NURSE ---
Pt has ambulated around [place] nurse's wing during shift report. Returned to bed and reports feeling sleepy. Continuous pulse oximeter in place and 02 sats 93% with rest. CPAP is available on bedside table. Clear breath sounds throughout. Denies passage of flatus. Bowel tones absent. Pt admits to feeling distended. Encouraged oral fluids to promote urinary output and these are available at pt's bedside. No complaints of nausea.
[2018-03-25] MEDS: ENOXAPARIN 40 MG/0.4 ML SYRINGE SUBCUT (20:46)
[2018-03-25] MEDS: ZONISAMIDE 100 MG CAPSULE PO (20:46)
[2018-03-25] MEDS: SODIUM CHLORIDE 0.9% FLUSH 10 ML IV (20:47)
--- NOTE | 2018-03-25 21:09 | RT ---
PT CURRENTLY USING HOME CPAP W/ RA. O2 SAT NOTED AT 92%.
--- NOTE | 2018-03-25 22:19 | PC.NURSE ---
Pt has voided 75 cc's dark orange colored urine this shift. Minimal po intake as pt states feels as though things get stuck when swallowing. Denies nausea. Bowel tones remain absent. Dulcolax suppository given as ordered. No flatus. Cpap in place. Sats 89-90%. Dr. Banda was contacted and also informed of pt's tachycardia one teens and one twenties with rate as high as [address]. [address] Banda, will electronically enter orders for bolus/iv fluids and labs in the a.m. Pt's bladder scanned prior to this phone call for 39 cc's.
[2018-03-25] MEDS: SODIUM CHLORIDE 0.9% 500 ML IV (22:39)
[2018-03-25] MEDS: SODIUM CHLORIDE 0.9% 1,000 ML 125 ML IV (22:39)
--- NOTE | 2018-03-25 23:43 | PC.NURSE ---
Normal saline bolus infusing as ordered per Dr. Banda. Pt with CPAP in place 02 sats 91-92%. Rouses easily to voice. BL calf scd's in place.
[2018-03-26] VITALS (9 sets, daily range): BP systolic 117–149; BP diastolic 75–97; PULSE 115–128; RESP 18–22; TEMP 36.4–36.6; O2SAT 92–95
[2018-03-26] MEDS: TRAMADOL 50 MG TABLET 100 MG PO ×4 (02:12→21:12)
--- NOTE | 2018-03-26 03:15 | PC.NURSE ---
Addendum entered by Janice Busby R.N. 03/26/18 06:54: States pain up to 6/10 when up to bathroom and now back down to 4/10. Voided an additional 250cc but urine remains very concentrated, dark lakisha. O2 sat now 93% on 1L/min Original Note: Addendum entered by Janice Busby R.N. 03/26/18 06:43: Patient stated this morning that she has 0/10 pain at rest but as soon as she has any movement pain increases. Just raising HOB caused pain to go to 3/10; medicated with Tylenol as patient expecting to get up to bathroom to urinate shortly. O2 sat 95% so O2 decreased to 1L/min Original Note: Addendum entered by Janice Busby R.N. 03/26/18 04:24: On hourly check noted patient no longer has CPAP on and sats down to 82% so patient awakened but refused to have CPAP back on so placed on oxygen at 2L/min per NC Original Note: Patient is alert and oriented. Breath sounds diminished at bilateral bases; using CPAP for sleep with no oxygen and sat at 92%. HRR but still tachy at 120 bpm. Denies nausea. BT absent and still not passing flatus. Abdomen is distended, tender and firm. Complains of 5/10 abdominal pain. Had minimal urine output on previous shift and had received bolus and now has IVF infusing. Assisted to bathroom with walker and SBA and was able to urinate 150cc but urine is dark and concentrated. Is able to turn self with minimal assist. Non pitting edema bilateral LE continue. Wearing bilateral SCD's. Medicated with Tramadol for abdominal pain and provided warm blanket for comfort. Fall risk score is high and bed alarm is activated.
[2018-03-26] MEDS: LEVOTHYROXINE 100 MCG TABLET PO (05:57)
[2018-03-26] MEDS: ACETAMINOPHEN 325 MG TABLET 650 MG PO (06:03)
[2018-03-26] MEDS: SODIUM CHLORIDE 0.9% 1,000 ML 125 ML IV (06:52)
[2018-03-26] MEDS: SODIUM CHLORIDE 0.9% FLUSH 10 ML IV ×2 (09:30→21:08)
[2018-03-26] MEDS: METOCLOPRAMIDE HCL 10 MG TABLET PO ×4 (09:30→21:08)
[2018-03-26] MEDS: BISACODYL 10 MG SUPP PR (09:33)
[2018-03-26] MEDS: POLYETHYLENE GLYCOL 3350 17 GM POWD.PACK PO (10:10)
--- NOTE | 2018-03-26 11:31 | PN_ITS ---
DATE OF SERVICE: 03/26/2018 SUBJECTIVE: Patient is now 4 days postoperative laparoscopic cholecystectomy. She is feeling better every day. Less abdominal pain. Still has not had a bowel movement and is not passing gas. She had prior small bowel resection following a complicated hysterectomy some years ago and customarily has an ileus following surgery, which she has now, I'm certain. She's having less pain every day, is not having any emesis, is eating small amounts of food, drinking some, still getting some IV fluids. OBJECTIVE: She remains afebrile. Abdomen is soft. Normal amount of trocar tenderness. Trocar sights are healing without any erythema or sign of infection. PLAN: Stimulate her bowel, continuing Dulcolax and give her a dose of MiraLAX. She has morbid obesity with a BMI of 48, and this has complicated her postoperative course as well. I think, however, she's recovering, albeit very slowly, and my hope is to get her discharged tomorrow. Negar Wagner - Vince/ash doc#: [id number]/job#: [id number] dd: 03/26/2018 10:03:00 dt: 03/26/2018 11:25:00 DICTATING MD/COPIES TO: Man Hernandez MD COPIES MNE: CESAR
[2018-03-26] MEDS: levoFLOXacin 750 MG/150 ML PIGGYBACK 100 MG IV (12:01)
[2018-03-26] MEDS: FUROSEMIDE 20 MG TABLET PO (12:06)
[2018-03-26 13:57] LABS: Add Manual Diff / Slide Review NO; Basophils Percent Auto 0.3 % (0-2); Eosinophils Percent Auto 0.3 % (2-4); Hemoglobin 14.8 g/dL (12.0-16.0); Lymphocytes Percent Auto 7.7 % (25-40); Mean Corpuscular HGB Conc 33.7 % (30-36); Mean Corpuscular Hemoglobin 29.5 PG (26-34); Mean Corpuscular Volume 87.5 fL (80-100); Monocytes Percent Auto 6.7 % (3-14); Neutrophils Absolute Auto 8400 /uL (3000-5900); Platelet Count 278 X10^3/uL (150-400); Red Blood Cell Count 5.03 X10^6/uL (4.0-5.2); Red Cell Distribution Width 15.8 % (11.6-14.8); White Blood Cell Count 9.9 X10^3/uL (4.5-11.0)
[2018-03-26 14:08] LABS: BUN Creatinine Ratio 22.5 (6-22); Blood Urea Nitrogen 18 mg/dL (7-17); Calcium 8.2 mg/dL (8.4-10.2); Carbon Dioxide 28 mmol/L (22-32); Chloride 96 mmol/L (98-107); Estimated Glomerular Filt Rate > 60.0 mL/min (>60); Glucose 158 mg/dL (70-100); HEMOLYSIS < 15 (0-50); Potassium 3.8 mmol/L (3.4-5.1); Sodium 130 mmol/L (137-145)
--- NOTE | 2018-03-26 15:19 | PM.PN.1 ---
Subjective Date Patient Seen: 03/26/18 Time Patient Seen: 10:19 Interval history: Patient feels like she has improved overnight. She has ongoing pain control issues but as long as she remains still she is not in pain. Has been burping but has not been passing flatus. She is hoping she will be able to stool today and has had 2 suppositories so far. She had some difficulty with swallowing last night but these symptoms have resolved and she is able to take adequate orals. She is even eating a few bites of food. She tells me that she is doing her incentive spirometry hourly however she her maximum measurement was 1000. Exam Vital Signs (past 8 hours): - 03/26/18 07:58 03/26/18 08:20 03/26/18 12:27 Temperature 97.5 F L 97.6 F Pulse Rate 124 H 117 H Respiratory Rate 20 22 Blood Pressure 149/97 H 123/78 H Pulse Oximetry 93 93 92 Fraction of Inspired Oxygen 24 Oxygen Delivery Method Nasal Cannula Oxygen Flow Rate 1 Narrative Exam Narrative: Objective: General: Well-developed, well-nourished, female, no acute distress. Heart: Regular rate and rhythm, no murmurs appreciated Lungs: Clear to auscultation bilaterally, no wheezes, rales or rhonchi, she does have splinting with deep inspiration and inspirations tend to be shallow Abd: BS+, soft, trocar sites without redness or drainage Extremities: Warm and well perfused Objective Labs Result Diagrams: 03/26/18 13:50 03/26/18 13:50 Labs: Laboratory Results - last 24 hr 03/26/18 03/26/18 13:50 13:50 WBC 9.9 RBC 5.03 Hgb 14.8 Hct 44.0 MCV 87.5 MCH 29.5 MCHC 33.7 RDW 15.8 H Plt Count 278 Neut % (Auto) 85.0 H Lymph % (Auto) 7.7 L [place] % (Auto) 6.7 Eos % (Auto) 0.3 L Baso % (Auto) 0.3 Neut # (Auto) 8400 H Sodium 130 L D Potassium 3.8 Chloride 96 L Carbon Dioxide 28 BUN 18 H Creatinine 0.80 Estimated GFR > 60.0 BUN/Creatinine Ratio 22.5 H Glucose 158 H Calcium 8.2 L Assessment & Plan (1) Hypothyroid: Current visit: Yes Status: Acute (2) Cholelithiasis: Qualifiers: Biliary obstruction: without biliary obstruction Cholangitis acuity: Cholangitis presence: Cholecystitis acuity: Cholecystitis presence: without cholecystitis Cholelithiasis location: gallbladder Qualified Code(s): K80.20 - Calculus of gallbladder without cholecystitis without obstruction Current visit: Yes Status: Acute Plan: Assessment/Plan Narrative: 1. STATUS POST CHOLECYSTECTOMY. Postoperative day 4. Slow improvement. History of naltrexone use which may be impairing patient's recovery, now trach stoma tablets have a half-life of 5-10 days. Patient remains on Levaquin. White blood cell count in the normal range at this point, which is reassuring. Encourage ambulation, deep breathing. Currently using tramadol for pain management. Lorazepam for anxiety. 2. Impaired fasting glucose. Continue with an insulin sliding scale at this point, patient has needed minimal. On discharge, she should go home on her metformin. Will leave restarting other medications to her specialist. 3. Hypothyroidism. Continue levothyroxine 4. Migraine headaches. Continue Zonegran. 5. Tachycardia. Unclear if this is from pain. No signs of infection. encourage PO intake for now. Monitor. DVT prophylaxis. Lovenox CODE STATUS: full code Anticipate discharge home in the next 24-48 hours assuming the patient is able to ambulate and maintain sufficient oral hydration. Quality VTE Deep Vein Thrombosis/Pulmonary Embolism Present on Admission: No
--- NOTE | 2018-03-26 15:33 | PC.NURSE ---
URINE DARK AND CONCENTRATED. DR. CRUMP NOTIFIED. IV S.L. AMBULATED IN HALLS THIS AFTERNOON, STEADY ON FEET W/FWW 1PA.
[2018-03-26] MEDS: ENOXAPARIN 40 MG/0.4 ML SYRINGE SUBCUT (21:08)
--- NOTE | 2018-03-26 22:31 | PC.NURSE ---
Evening Shift Note Pt A&O, VSS, 92% on RA. Pain managed w/ Tramadol. Pt tachycardic throughout shift, MD aware, recovers WNL when in bed. Pt w/ decreased appetite, BT pos, not passing gas, abdomen distended and tender, nausea w/o emesis, scheduled Reglan given. Pt urine very concentrated and tea colored, MD also aware. Pt up to walk x2 this shift w/ 1p and FWW. L H PIV SL. Pt currently resting w/ CPAP on.
[2018-03-27] MEDS: ACETAMINOPHEN 325 MG TABLET 650 MG PO ×2 (00:36→11:59)
[2018-03-27 00:40] VITALS: BP 111/69; PULSE 133; RESP 20; TEMP 36.5; O2SAT 92
[2018-03-27 03:21] VITALS: O2SAT 92
[2018-03-27 05:00] VITALS: BP 133/80; PULSE 116; RESP 19; TEMP 36.6; O2SAT 92
[2018-03-27] MEDS: TRAMADOL 50 MG TABLET 100 MG PO (05:26)
[2018-03-27] MEDS: LEVOTHYROXINE 100 MCG TABLET PO (05:26)
--- NOTE | 2018-03-27 05:30 | PC.NURSE ---
Pt is AxOx3, VSS, tolerating room air at 92%. Fingerstick at 0200 was 126. Pt's pain is well controlled, took tylenol once during the night, and then only the Tramadol in the morning in preparation for walking around during the day. States her pain is at a 4/10. Dressings are C/D/I. Stomach is still firm and distended, encouraging walking during the day. Pt sat up in the chair for several hours during the night which i suspect may have helped with her GI motility as well as all of her medications. Urine is still a dark lakisha color, heavily concentrated.
[2018-03-27 08:00] VITALS: BP 120/84; PULSE 82; RESP 16; TEMP 36.6; O2SAT 92
[2018-03-27] MEDS: SODIUM CHLORIDE 0.9% FLUSH 10 ML IV (08:22)
[2018-03-27] MEDS: METOCLOPRAMIDE HCL 10 MG TABLET PO ×2 (08:22→11:59)
--- NOTE | 2018-03-27 10:31 | P.PN_ITS ---
Subjective Date Patient Seen: 03/27/18 Time Patient Seen: 10:30 Interval history: Patient is up walking the halls today. Plan to discharge today. See discharge summary. Exam Vital Signs (past 8 hours): - 03/27/18 03:21 03/27/18 05:00 03/27/18 08:00 Temperature 97.9 F 97.8 F Pulse Rate 116 H 82 Respiratory Rate 19 16 Blood Pressure 133/80 H 120/84 H Pulse Oximetry 92 92 92 Fraction of Inspired Oxygen 24 Oxygen Delivery Method Room Air,CPAP Oxygen Flow Rate 0 Objective Labs Result Diagrams: 03/26/18 13:50 03/26/18 13:50 Labs: Laboratory Results - last 24 hr 03/26/18 03/26/18 13:50 13:50 WBC 9.9 RBC 5.03 Hgb 14.8 Hct 44.0 MCV 87.5 MCH 29.5 MCHC 33.7 RDW 15.8 H Plt Count 278 Neut % (Auto) 85.0 H Lymph % (Auto) 7.7 L [place] % (Auto) 6.7 Eos % (Auto) 0.3 L Baso % (Auto) 0.3 Neut # (Auto) 8400 H Sodium 130 L D Potassium 3.8 Chloride 96 L Carbon Dioxide 28 BUN 18 H Creatinine 0.80 Estimated GFR > 60.0 BUN/Creatinine Ratio 22.5 H Glucose 158 H Calcium 8.2 L Quality VTE Deep Vein Thrombosis/Pulmonary Embolism Present on Admission: No
[2018-03-27] MEDS: levoFLOXacin 750 MG/150 ML PIGGYBACK 100 MG IV (11:58)
[2018-03-27 12:00] VITALS: BP 115/74; PULSE 116; RESP 18; O2SAT 94
--- NOTE | 2018-03-27 12:10 | PM.DS.1 ---
History of Present Illness Date Patient Seen: 03/27/18 Time Patient Seen: 12:10 Chief complaint: THINKS SHES HAVING GALLBLADDER ISSUES Narrative: From H&P by Dr. Olivera dated 03/22/2018 Patient is a 53-year-old woman with a history of impaired fasting glucose/diabetes type 2, well known to me, presented to the emergency room after approximately 12 hr of epigastric abdominal pain. Patient reports that she had a nice meal last night, and she started having pain. the pain continued to radiate to her back throughout the evening, even after taking antacids. No fever chills. She did have some vomiting in the emergency room. In the emergency room, patient was found to have a stone in the neck of the gallbladder and felt to be the etiology of the patient's symptoms. Patient was admitted in anticipation of a cholecystectomy. Discharge Providers Date of admission: 03/23/18 16:34 Primary care physician: Dipika Olivera MD Consults: 03/22/18 09:11 Consult to General Surgery Routine Comment: Consulting Provider: Man Hernandez Reason for consultation: surgery Has provider been notified: Yes Consult to Physician Routine Comment: Consulting Provider: Harrison Babin Reason for consultation: admit Has provider been notified: Yes Discharge provider: Liliana Banda DO Summary Discharge Diagnosis: Cholelithiasis now status post cholecystectomy Metabolic syndrome Hypothyroid Morbid obesity Hospital Course: 1. STATUS POST CHOLECYSTECTOMY. Postoperative day 5. Slow improvement. History of naltrexone use which may be impairing patient's recovery, metabolites have a half-life of 5-10 days. Patient remains on Levaquin but will not continue on discharge. White blood cell count in the normal range at this point, which is reassuring. She is ambulating and using her incentive spirometer. Continue tramadol for pain management. Lorazepam was available for anxiety early after surgery but she has not needed any of this medication for the past few days. 2. Metabolic syndrome. She is on a host of medication from [facility] which were discontinued during admission. She was placed on sliding scale insulin for blood sugar control. She will restart metformin at discharge. Zonegran was restarted when she could tolerate PO. 3. Hypothyroidism. Continue levothyroxine 4. Tachycardia. Unclear if this is from pain. No signs of infection. Discussed the importance of hydration. 5. Hematuria. Likely secondary to lovenox use. Will monitor as outpatient. DVT prophylaxis. Lovenox CODE STATUS: full code She will need follow up with surgery at the end of the week for staple removal. She will need to talk to [facility] on restarting her medication regimen. She can follow up with me in clinic in the next two weeks but will need to establish with a new PCP soon. Exam Vital Signs (past 8 hours): - 03/27/18 05:00 03/27/18 08:00 Temperature 97.9 F 97.8 F Pulse Rate 116 H 82 Respiratory Rate 19 16 Blood Pressure 133/80 H 120/84 H Pulse Oximetry 92 92 Fraction of Inspired Oxygen 24 Oxygen Delivery Method Room Air,CPAP Oxygen Flow Rate 0 Narrative Exam Narrative: General: Well-developed, well-nourished, female, no acute distress. Heart: Regular rate and rhythm, no murmurs appreciated Lungs: Clear to auscultation bilaterally, no wheezes, rales or rhonchi Abd: BS+, soft, trocar sites without redness or drainage Extremities: Warm and well perfused Objective Labs Result Diagrams: 03/26/18 13:50 03/26/18 13:50 Labs: Laboratory Results - last 24 hr 03/26/18 03/26/18 13:50 13:50 WBC 9.9 RBC 5.03 Hgb 14.8 Hct 44.0 MCV 87.5 MCH 29.5 MCHC 33.7 RDW 15.8 H Plt Count 278 Neut % (Auto) 85.0 H Lymph % (Auto) 7.7 L [place] % (Auto) 6.7 Eos % (Auto) 0.3 L Baso % (Auto) 0.3 Neut # (Auto) 8400 H Sodium 130 L D Potassium 3.8 Chloride 96 L Carbon Dioxide 28 BUN 18 H Creatinine 0.80 Estimated GFR > 60.0 BUN/Creatinine Ratio 22.5 H Glucose 158 H Calcium 8.2 L Discharge Plan Discharge Plan Patient Disposition: Home, Self-Care Discharge comment: Follow up with general surgery at the end of the week for staple removal. Call [facility] for instructions on restarting your protocol for metabolic syndrome. Follow up at [facility] in the next 2 weeks. Provider Discharge Instructions Activity: as tolerated. Ambulate frequently. Discharge Data Primary Care Provider: Cousins,Dipika Attending Provider: Dipika Olivera Admit Date/Time: 03/23/18 16:34 Quality VTE Deep Vein Thrombosis/Pulmonary Embolism Present on Admission: No
[2018-03-27 12:48] LABS: Appearance Urine UA SL CLOUDY; Bilirubin Urine UA 3+ (NEGATIVE); Color Urine UA BROWN; Glucose Urine UA TRACE g/dL (Normal); Ketones Urine UA TRACE (NEGATIVE); Leukocyte Esterase Urine UA TRACE (NEGATIVE); Nitrite Urine UA POSITIVE (Negative); Occult Blood Urine UA TRACE-LYSED (Negative); Protein Urine UA 2+ (Negative); pH Urine UA 6.5 (4.5-8.0)
[2018-03-27 13:01] LABS: Bacteria Urine Many (>30); RBC Urine 1-5/HPF (0-5/HPF); Squamous Epithelial Cell Urine >30 /HPF; WBC Urine 5-10/HPF (0-5/HPF)
[2018-03-27 13:02] LABS: Ictotest Urine Positive (Negative)
--- NOTE | 2018-03-27 13:07 | PC.NURSE ---
Day shift: Notified Dr Banda about UA results that were done today.
--- NOTE | 2018-03-27 13:17 | PN_ITS ---
DATE OF SERVICE: 03/27/2018Wednesday morning, 11 o'clock, patient now is about 5 days post laparoscopic cholecystectomy. Her other conditions are morbid obesity, diabetes, hypertension. She, surgically, is doing well now, having bowel movements, had 3 bowel movements last night. No nausea, vomiting. She's been afebrile since surgery. She had some lab work yesterday showing white count of 9900, hemoglobin normal at 14.8. She is a bit hyponatremic, hypokalemic. Normal BUN and creatinine. Internal Medicine is managing her comorbidities. Patient, subjectively, feeling much better today. She is ambulating in the hallways with help with her walker. Again, she has a BMI of 48 and has been in the slow recovery period but doing better cystectomy every day since her laparoscopic cholecystectomy for acute cholecystitis with cholelithiasis. Surgically, I would say that she is able to be discharged pending her comorbidities being addressed by the hospitalist but from surgical viewpoint, she has recovered well enough to be discharged home. She has kev in her skin which need to be removed toward the end of this coming week. Negar Wagner - Vince/ doc#: [id number]/job#: [id number] dd: 03/27/2018 10:42:00 dt: 03/27/2018 13:08:00 DICTATING /COPIES TO: Man Hernandez MD COPIES MNE: CESAR
--- NOTE | 2018-03-27 14:30 | PC.NURSE ---
Day shift: Pt has paperwork and all personal belongings. All questions answered. Pt will be traveling in private vehicle with spouse. Taken outside via WC. Paperwork signed as well. Left unit at approx 1445.
== END 2018-03-27 14:37 | disposition home or self-care (01) | DRG 418 ==
LOC: ED 05:10 → AC 07:01
PROVIDERS: Family Medicine; Surgery; Admitting Provider Family Medicine; Emergency Provider Emergency Medicine; PCP Family Medicine; Visit Provider Family Medicine
PROC: 0FT44ZZ Resection of Gallbladder, Percutaneous Endoscopic Approach (ICD-10-PCS; CPT 47562; principal; 2018-03-22 12:15)
DX: K80.00 Calculus of gallbladder with acute cholecystitis without obstruction (principal); K82.1 Hydrops of gallbladder; Z68.42 Body mass index [BMI] 45.0-49.9, adult; D68.32 Hemorrhagic disorder due to extrinsic circulating anticoagulants; E66.01 Morbid (severe) obesity due to excess calories; E03.9 Hypothyroidism, unspecified; R00.0 Tachycardia, unspecified; E88.81 Metabolic syndrome and other insulin resistance; R31.0 Gross hematuria; T45.515A Adverse effect of anticoagulants, initial encounter; Y92.231 Patient bathroom in hospital as the place of occurrence of the external cause; E74.39 Other disorders of intestinal carbohydrate absorption
CPT/HCPCS: 36415; 36591; 36592; 47562; 76700; 80048; 80053; 81001; 82962; 83690; 84484; 85025; 87086; 93005; 94760; 94762; 96365; 96366; 96375; 96376; 99232; 99233; 99238; 99284; 99285; G0378; C9113; J1170; J1650; J1956; J2270; J2405; J2704; J3010

== ENCOUNTER → 2018-04-01 16:17 | Outpatient (CLI) | payer BC, SELFPAY ==
[2018-03-22 09:23] VITALS: BMI 47.2
[2018-04-01 17:20] LABS: Add Manual Diff / Slide Review NO; Basophils Percent Auto 0.5 % (0-2); Eosinophils Percent Auto 1.3 % (2-4); Hemoglobin 12.1 g/dL (12.0-16.0); Lymphocytes Percent Auto 17.3 % (25-40); Mean Corpuscular HGB Conc 33.7 % (30-36); Mean Corpuscular Hemoglobin 29.4 PG (26-34); Mean Corpuscular Volume 87.3 fL (80-100); Monocytes Percent Auto 8.7 % (3-14); Neutrophils Absolute Auto 6800 /uL (3000-5900); Neutrophils Percent Auto 72.2 % (50-75); Platelet Count 274 X10^3/uL (150-400); Red Blood Cell Count 4.12 X10^6/uL (4.0-5.2); Red Cell Distribution Width 15.6 % (11.6-14.8); White Blood Cell Count 9.5 X10^3/uL (4.5-11.0)
== END ==
PROVIDERS: PCP Family Medicine; Visit Provider Specialist
DX: K91.841 Postprocedural hemorrhage of a digestive system organ or structure following other procedure (principal)
CPT/HCPCS: 36415; 85025

== ENCOUNTER → 2018-09-14 15:11 | Outpatient (CLI) | payer BC, SELFPAY ==
[2018-03-22 09:23] VITALS: BMI 47.2
--- NOTE | 2018-09-14 | DI.MG.S_ITS ---
BILATERAL DIGITAL SCREENING MAMMOGRAM 3D/2D WITH CAD: 09/14/2018 CLINICAL: Routine screening. Comparison is made to exams dated: 09/07/2013 mammogram, 05/09/2012 mammogram, and 06/24/2010 mammogram - [facility]. There are scattered fibroglandular elements in both breasts. Current study was also evaluated with a Computer Aided Detection (CAD) system. No significant masses, calcifications, or other findings are seen in either breast. There has been no significant interval change. IMPRESSION: NEGATIVE There is no mammographic evidence of malignancy. A 1 year screening mammogram is recommended. This exam was interpreted at Station ID: [id number]. NOTE: For mammograms, a report in lay terms will be sent to the patient. Approximately 15% of breast malignancies will not be visualized mammographically. In the management of a palpable breast mass, a negative mammogram must not discourage biopsy of a clinically suspicious lesion. Electronically Signed By: Mk jain/carmelo:09/15/2018 06:58:17 letter sent: Normal Exam ACR BI-RADS Category 1: Negative [id number]
== END ==
PROVIDERS: Visit Provider Internal Medicine
DX: Z12.31 Encounter for screening mammogram for malignant neoplasm of breast (principal)
CPT/HCPCS: 77063; 77067

== ENCOUNTER → 2019-07-03 15:42 | Outpatient (CLI) | payer BC, SELFPAY ==
[2018-03-22 09:23] VITALS: BMI 47.2
--- NOTE | 2019-07-03 15:45 | DI.RAD.S_ITS ---
PROCEDURE: XR HAND LT MIN 3V INDICATIONS: pain in left middle and ring finger TECHNIQUE: 3 views of the hand(s) acquired. COMPARISON: None. FINDINGS: Bones: No fractures or dislocations. Carpal bones are normally aligned. No suspicious bony lesions. Mild to moderate degenerative changes are present involving the basal joint of the thumb. Soft tissues: No suspicious soft tissue calcifications. IMPRESSION: No acute osseous abnormality involving the left hand. Dictated by: Horacio Hunt M.D. on 07/03/2019 at 15:05 Approved by: Horacio Hunt M.D. on 07/03/2019 at 15:05
== END ==
PROVIDERS: PCP Internal Medicine; Visit Provider Nurse Practitioner
DX: M79.645 Pain in left finger(s) (principal)
CPT/HCPCS: 73130

== ENCOUNTER → 2019-08-08 11:00 | Outpatient (CLI) | payer BC, SELFPAY ==
[2018-03-22 09:23] VITALS: BMI 47.2
[2019-08-08 11:36] LABS: Add Manual Diff / Slide Review NO; Basophils Absolute Auto 100 /uL (0-100); Basophils Percent Auto 1.1 % (0-2); Eosinophils Absolute Auto 100 /uL (0-450); Eosinophils Percent Auto 2.3 % (2-4); Hematocrit 42.9 % (36-46); Hemoglobin 14.6 g/dL (12.0-16.0); Lymphocytes Absolute Auto 1800 /uL (1100-4500); Lymphocytes Percent Auto 30.2 % (25-40); Mean Corpuscular Hemoglobin 29.9 PG (26-34); Mean Corpuscular Volume 87.8 fL (80-100); Monocytes Absolute Auto 500 /uL (0-900); Monocytes Percent Auto 8.7 % (3-14); Neutrophils Absolute Auto 3400 /uL (1500-7000); Neutrophils Percent Auto 57.7 % (50-75); Platelet Count 209 X10^3/uL (150-400); Red Blood Cell Count 4.89 X10^6/uL (4.0-5.2); Red Cell Distribution Width 14.7 % (11.6-14.8); White Blood Cell Count 5.9 X10^3/uL (4.5-11.0)
[2019-08-08 11:59] LABS: Alanine Aminotransferase 85 IU/L (<35); Albumin 4.5 g/dL (3.5-5.0); Albumin Globulin Ratio 1.6 (1.0-2.8); Alkaline Phosphatase 61 U/L (38-126); Aspartate Aminotransferase 63 IU/L (14-36); BUN Creatinine Ratio 15.6 (6-22); Blood Urea Nitrogen 14 mg/dL (7-17); Calcium 9.3 mg/dL (8.4-10.2); Carbon Dioxide 32 mmol/L (22-32); Chloride 100 mmol/L (98-107); Cholesterol 231 mg/dL (140-199); Estimated Glomerular Filt Rate > 60.0 mL/min (>60); Globulin 2.9 g/dL (1.7-4.1); Glucose 103 mg/dL (70-100); HDL Cholesterol 52 mg/dL (40-60); HEMOLYSIS < 15 (0-50); LDL Cholesterol Calculated 152 mg/dL (<100); Sodium 138 mmol/L (137-145); Total Protein 7.4 g/dL (6.3-8.2); Triglycerides 137 mg/dL (35-150)
[2019-08-08 12:38] LABS: TSH w/ Reflex to FT4 1.29 uIU/mL (0.47-4.68)
== END ==
PROVIDERS: PCP Family Medicine; Visit Provider Family Medicine
DX: Z13.29 Encounter for screening for other suspected endocrine disorder (principal); I10 Essential (primary) hypertension
CPT/HCPCS: 36415; 80053; 80061; 84443; 85025

== ENCOUNTER → 2019-08-25 11:01 | Outpatient (CLI) | payer BC, SELFPAY ==
[2019-08-25 10:42] VITALS: BMI 47.2
[2019-08-28 09:05] LABS: Hepatitis A Antibody IgM NONREACTIVE; Hepatitis B Core Antibody IgM NONREACTIVE; Hepatitis B Surface Antigen NONREACTIVE; Hepatitis C Antibody NONREACTIVE
== END ==
PROVIDERS: PCP Family Medicine; Visit Provider Family Medicine
DX: R94.5 Abnormal results of liver function studies (principal)
CPT/HCPCS: 36415; 80074

== ENCOUNTER → 2019-09-04 09:29 | Outpatient (CLI) | payer BC, SELFPAY ==
[2019-08-25 10:42] VITALS: BMI 47.2
--- NOTE | 2019-09-04 09:31 | DI.US.S_ITS ---
PROCEDURE: US CAROTID DOPPLER BI INDICATIONS: LEFT BRUIT TECHNIQUE: Color and pulse Doppler interrogation was performed of both carotid systems, with image documentation and velocity measurements. COMPARISON: None. FINDINGS: Stenosis calculations are based on SRU (Society of Radiologists in Ultrasound) criteria. Right side: Brachial blood pressure: 124/83 mm Hg. Common carotid artery peak systolic velocity: 78 cm/sec. Internal carotid artery peak systolic velocity: 50 cm/sec. Internal carotid artery end diastolic velocity: 15 cm/sec. External carotid artery peak systolic velocity: 75 cm/sec. ICA/CCA peak systolic ratio: 0.7. Espinal scale imaging description: No identified calcific or soft plaque Percent internal carotid artery stenosis: None found. Vertebral artery: Flow direction is antegrade. Left side: Brachial blood pressure: 121/78 mm Hg. Common carotid artery peak systolic velocity: 97 cm/sec. Internal carotid artery peak systolic velocity: 61 cm/sec. Internal carotid artery end diastolic velocity: 31 cm/sec. External carotid artery peak systolic velocity: 50 cm/sec. ICA/CCA peak systolic ratio: 0.6. Espinal scale imaging description: No identified calcific or soft plaque Percent internal carotid artery stenosis: None found. Vertebral artery: Flow direction is antegrade. IMPRESSION: No carotid stenosis identified. Source of left-sided bruit not found. The cardiac valvular etiology may explain this finding. Dictated by: Crow Mccoy M.D. on 09/04/2019 at 14:05 Approved by: Crow Mccoy M.D. on 09/04/2019 at 14:07
--- NOTE | 2019-09-04 09:31 | DI.US.S_ITS ---
PROCEDURE: US ABDOMEN COMPLETE INDICATIONS: ELEVATED LFTS TECHNIQUE: Real-time scanning was performed of the abdominal and retroperitoneal organs, with image documentation. COMPARISON: [facility], , US ABDOMEN COMPLETE, 03/22/2018, 3:46. FINDINGS: Liver: Liver is normal in size and homogeneous in echotexture, moderately hyperechoic consistent with fatty infiltration. Gallbladder: The gallbladder is surgically absent. Biliary ducts: Intrahepatic bile ducts are non-dilated. Extrahepatic bile duct caliber measures 7.1 mm. Normal is 6-7 mm or less in diameter, or 10 mm or less post-cholecystectomy. Pancreas: Visualized portions of the pancreas are sonographically normal. Spleen: Spleen is normal in size and homogeneous in echotexture. Kidneys: Kidneys are normal in size and echotexture. Right kidney measures 11.4 cm long; left kidney measures 12.0 cm long. No hydronephrosis or nephrolithiasis. No solid masses. Aorta: Visualized aorta is normal in caliber at less than 3 cm. Iliacs: Proximal common iliac arteries are normal in caliber at less than 2.5 cm. IVC: Intrahepatic inferior vena cava is patent. Miscellaneous: No free abdominal fluid. IMPRESSION: Moderate fatty infiltration throughout the liver. No biliary distention is found. The gallbladder is surgically absent. Currently hepatic steatosis is the most likely etiology of abnormal liver function tests. Dictated by: Crow Mccoy M.D. on 09/04/2019 at 14:08 Approved by: Crow Mccoy M.D. on 09/04/2019 at 14:09
== END ==
PROVIDERS: PCP Family Medicine; Visit Provider Family Medicine
DX: R94.5 Abnormal results of liver function studies (principal); R09.89 Other specified symptoms and signs involving the circulatory and respiratory systems; Z90.49 Acquired absence of other specified parts of digestive tract
CPT/HCPCS: 76700; 93880

== ENCOUNTER → 2019-09-15 13:28 | Outpatient (CLI) | payer BC, SELFPAY ==
[2019-08-25 10:42] VITALS: BMI 47.2
--- NOTE | 2019-09-15 13:29 | DI.ECHO.S_ITS ---
[facility]---------+ [facility] +---------+ : : [address] : : : : [id number] : : : : Phone: [phone]+ Echocardiogram Report + + :Name: SEVEN ESTEVEZ Study Date: 09/15/2019 Height: 63 in : :[employer] Weight: 297 lb : : Gender: Female BSA: 2.3 m2 : :: 1965 Age: 54 yrs BP: 140/86 mmHg: :Reason For Study: Murmur : :Ordering Physician: Diamond Paul Performed By: [facility] Staff : + + Interpretation Summary The left ventricular cavity is small. The left ventricle is hyperdynamic. The ejection fraction is estimated to be 70-75%. There are no obvious focal wall motion abnormalities noted but poor endocardial definition reduces the sensitivity for the detection of such. Continuous wave Doppler suggest outflow obstruction with peak velocity near 2.8 m/sec. Visually there is no obvious obstruction in the LVOT. Pulse wave Doppler highest peak gradient was along the mid LV cavity, which suggests there is some obstruction in the mid LV cavity due to undersize LV chamber size given the patient's body size. Diastolic parameters suggest probable normal left ventricular diastolic function and normal filling pressures. The right ventricle is normal in size and function. Pulmonary artery pressures cannot be estimated because of the lack of a measurable TR jet velocity. Both atria are normal in size. Aortic valve area cannot be accurately accessed due to increased velocities but it opens well. The aortic root is normal size. Procedure: A two-dimensional transthoracic echocardiogram with color flow and Doppler was performed. The study quality was technically adequate. Images from the parasternal window were difficult to obtain and are suboptimal in quality. A prior with images only is available from 12/08/2006. The patient was in normal sinus rhythm during the exam. The patient was in sinus rhythm with heart rates between 60-70 bpm during the exam. Left Ventricle: The left ventricular cavity is small. There is normal left ventricular wall thickness. Continuous wave Doppler suggest outflow obstruction with peak velocity near 2.8 m/sec. Visually there is no obvious obstruction in the LVOT. Pulse wave Doppler highest peak gradient was along the mid LV cavity, which suggests there is some obstruction in the mid LV cavity due to undersize LV chamber size given the patient's body size. The left ventricle is hyperdynamic. The ejection fraction is estimated to be 70- 75%. There are no obvious focal wall motion abnormalities noted but poor endocardial definition reduces the sensitivity for the detection of such. Diastolic parameters suggest probable normal left ventricular diastolic function and normal filling pressures. Right Ventricle: The right ventricle is normal in size and function. Atria: Both atria are normal in size. The interatrial septum is intact with no evidence for an atrial septal defect. Mitral Valve: The mitral valve is normal in structure and function. There is no mitral regurgitation noted. Aortic Valve: The aortic valve was difficult to visualize but appears trileaflet. The aortic valve opens well. Aortic valve area cannot be accurately accessed due to increased velocities but it opens well. No aortic regurgitation is present. Tricuspid Valve: The tricuspid valve is normal. No tricuspid regurgitation. Pulmonary artery pressures cannot be estimated because of the lack of a measurable TR jet velocity. Pulmonic Valve: The pulmonic valve is not well seen, but is grossly normal. There is no pulmonic valvular regurgitation. Great Vessels: The aortic root is normal size. The dimensions of the ascending aorta are normal. The aortic arch is at the upper limits of normal in size. The pulmonary artery is not well visualized, but is probably normal size. The IVC is of normal diameter and collapses greater than 50% with a sniff. This suggests a low right atrial pressure of 3 mm Hg. Pericardium/ Pleura There is no pericardial effusion. There is no pleural effusion. MMode/2D Measurements & Calculations LVIDd: 3.5 cm LVOT diam: 2.1 cm LVIDs: 2.0 cm Ao root diam: 3.0 cm FS: 43.6 % Aortic Jxn: 2.8 cm IVSd: 0.90 cm asc Aorta Diam: 3.2 cm LVPWd: 1.2 cm Ao Arch Diam (Prox Trans): 3.3 cm LV douglas. diameter/BSA (cm/m^2): 1.5 LV sys. diameter/BSA (cm/m^2): 0.87 LA A2 area: 15.2 cm2 RA long axis: 4.7 cm LA A4 area: 15.3 cm2 RA area: 14.0 cm2 LA length (vol): 4.9 cm RA vol: 35.2 ml LA vol: 40.3 ml RA : 15.4 ml/m2 LA vol index: 17.6 ml/m2 IVC diam: 2.0 cm RVD1 (basal): 2.9 cm TAPSE: 1.8 cm Doppler Measurements & Calculations Ao V2 max: 275.1 cm/sec MV E max javad: 83.1 cm/sec Ao V2 mean: 176.6 cm/sec MV A max javad: 85.7 cm/sec Ao max P.3 mmHg MV E/A: 0.97 Ao mean P.6 mmHg Med Peak E' Javad: 7.3 cm/sec Ao V2 VTI: 53.8 cm E/E' med: 11.3 Lat Peak E' Javad: 8.0 cm/sec E/E' lat: 10.4 E/e' average: 10.9 MV dec time: 0.23 sec MV P1/2t: 68.9 msec PA V2 max: 88.9 cm/sec MV P1/2t max javad: 83.1 cm/sec PA V2 mean: 67.1 cm/sec MVA(P1/2t): 3.2 cm2 PA mean P.0 mmHg PA Accel Time: 0.08 sec Reading Physician:05:12 PM
== END ==
PROVIDERS: PCP Family Medicine; Visit Provider Family Medicine
DX: R01.1 Cardiac murmur, unspecified (principal)
CPT/HCPCS: 93306

== ENCOUNTER → 2019-12-30 09:07 | Outpatient (CLI) | payer BC, SELFPAY ==
[2019-08-25 10:42] VITALS: BMI 47.2
[2019-12-30 11:14] LABS: Alanine Aminotransferase 38 IU/L (<35); Albumin 4.2 g/dL (3.5-5.0); Albumin Globulin Ratio 1.5 (1.0-2.8); Alkaline Phosphatase 55 U/L (38-126); Aspartate Aminotransferase 39 IU/L (14-36); BUN Creatinine Ratio 18.4 (6-22); Bilirubin Total 0.8 mg/dL (0.2-1.3); Blood Urea Nitrogen 14 mg/dL (7-17); Carbon Dioxide 27 mmol/L (22-32); Chloride 104 mmol/L (98-107); Cholesterol 123 mg/dL (140-199); Estimated Glomerular Filt Rate > 60.0 mL/min (>60); Globulin 2.8 g/dL (1.7-4.1); Glucose 138 mg/dL (70-100); HDL Cholesterol 50 mg/dL (40-60); HEMOLYSIS < 15 (0-50); LDL Cholesterol Calculated 42 mg/dL (<100); Potassium 4.2 mmol/L (3.4-5.1); Sodium 140 mmol/L (137-145); Triglycerides 156 mg/dL (35-150)
== END ==
PROVIDERS: PCP Nurse Practitioner Family; Referring Provider Internal Medicine Cardiovascular Disease; Visit Provider Internal Medicine Cardiovascular Disease
DX: E78.5 Hyperlipidemia, unspecified (principal); Q24.8 Other specified congenital malformations of heart
CPT/HCPCS: 36415; 80053; 80061

== ENCOUNTER → 2020-01-04 08:24 | Outpatient (CLI) | payer BC, SELFPAY ==
[2019-08-25 10:42] VITALS: BMI 47.2
== END ==
PROVIDERS: PCP Nurse Practitioner Family; Visit Provider Nurse Practitioner Family
DX: E03.9 Hypothyroidism, unspecified (principal)
CPT/HCPCS: 84443

== ENCOUNTER → 2020-06-04 09:45 | Outpatient (CLI) | payer BC, SELFPAY ==
[2019-08-25 10:42] VITALS: BMI 47.2
[2020-06-04 11:10] LABS: Alanine Aminotransferase 53 IU/L (<35); Albumin 4.1 g/dL (3.5-5.0); Albumin Globulin Ratio 1.5 (1.0-2.8); Alkaline Phosphatase 60 U/L (38-126); Aspartate Aminotransferase 48 IU/L (14-36); Bilirubin Total 0.9 mg/dL (0.2-1.3); Bilirubin Unconjugated 0.8 mg/dL (0.0-1.1); Cholesterol 135 mg/dL (140-199); Globulin 2.7 g/dL (1.7-4.1); HDL Cholesterol 55 mg/dL (40-60); HEMOLYSIS < 15 (0-50); LDL Cholesterol Calculated 47 mg/dL (<100); Total Protein 6.8 g/dL (6.3-8.2); Triglycerides 167 mg/dL (35-150)
== END ==
PROVIDERS: PCP Nurse Practitioner Family; Referring Provider Nurse Practitioner Family; Visit Provider Nurse Practitioner Family
DX: E78.5 Hyperlipidemia, unspecified (principal); R94.5 Abnormal results of liver function studies
CPT/HCPCS: 36415; 80061; 80076

== ENCOUNTER → 2020-06-20 16:01 | Outpatient (CLI) | payer BC, SELFPAY ==
[2019-08-25 10:42] VITALS: BMI 47.2
[2020-06-20 16:29] LABS: Alanine Aminotransferase 64 IU/L (<35); Albumin 4.3 g/dL (3.5-5.0); Albumin Globulin Ratio 1.6 (1.0-2.8); Alkaline Phosphatase 53 U/L (38-126); Aspartate Aminotransferase 68 IU/L (14-36); Bilirubin Unconjugated 0.8 mg/dL (0.0-1.1); Globulin 2.7 g/dL (1.7-4.1); HEMOLYSIS 39 (0-50)
[2020-06-20 17:00] LABS: TSH w/ Reflex to FT4 1.34 uIU/mL (0.47-4.68)
[2020-06-21 03:47] LABS: HBsAg Screen Negative (Negative); Hepatitis A Antibody IgM Negative (Negative); Hepatitis B Core Antibody IgM Negative (Negative); Hepatitis C Antibody <0.1 s/co ratio (0.0-0.9)
[2020-06-23 18:37] LABS: ANA Screen, IFA Negative (.)
[2020-06-25 09:36] LABS: Smooth Muscle Antibody 4 Units (0-19)
== END ==
PROVIDERS: PCP Nurse Practitioner Family; Referring Provider Nurse Practitioner Family; Visit Provider Nurse Practitioner Family
DX: R94.5 Abnormal results of liver function studies (principal)
CPT/HCPCS: 36415; 80074; 80076; 83516; 84443; 86038

== ENCOUNTER → 2020-09-23 15:02 | Outpatient (CLI) | payer BC, SELFPAY ==
[2019-08-25 10:42] VITALS: BMI 47.2
[2020-09-23 17:13] LABS: COVID19 -Nasal RAPID POSITIVE (Negative)
== END ==
PROVIDERS: PCP Nurse Practitioner Family; Visit Provider Physician Assistant
DX: U07.1 COVID-19 (principal)
CPT/HCPCS: 87635

== ENCOUNTER → 2020-10-14 18:52 | Outpatient (CLI) | payer BC, SELFPAY ==
[2019-08-25 10:42] VITALS: BMI 47.2
[2020-10-14 19:54] LABS: COVID19 -Nasal RAPID Negative (Negative)
== END ==
PROVIDERS: PCP Nurse Practitioner Family; Visit Provider Nurse Practitioner
DX: Z20.822 Contact with and (suspected) exposure to COVID-19 (principal)
CPT/HCPCS: 87635

== ENCOUNTER → 2020-10-31 11:37 | Outpatient (CLI) | payer BC, SELFPAY ==
[2019-08-25 10:42] VITALS: BMI 47.2
[2020-10-31 13:17] LABS: Hematocrit 42.3 % (36-46); Mean Corpuscular Hemoglobin 29.4 PG (26-34); Mean Corpuscular Volume 89.1 fL (80-100); Platelet Count 195 X10^3/uL (150-400); Red Blood Cell Count 4.74 X10^6/uL (4.0-5.2); Red Cell Distribution Width 15.6 % (11.6-14.8)
[2020-10-31 13:21] LABS: Alanine Aminotransferase 85 IU/L (<35); Albumin 4.3 g/dL (3.5-5.0); Albumin Globulin Ratio 1.7 (1.0-2.8); Alkaline Phosphatase 62 U/L (38-126); Aspartate Aminotransferase 91 IU/L (14-36); BUN Creatinine Ratio 12.7 (6-22); Bilirubin Total 0.9 mg/dL (0.2-1.3); Blood Urea Nitrogen 10 mg/dL (7-17); Calcium 9.3 mg/dL (8.4-10.2); Carbon Dioxide 29 mmol/L (22-32); Chloride 99 mmol/L (98-107); Estimated Glomerular Filt Rate > 60.0 mL/min (>60); Globulin 2.5 g/dL (1.7-4.1); Glucose 170 mg/dL (70-100); HEMOLYSIS < 15 (0-50); Potassium 4.5 mmol/L (3.4-5.1); Sodium 136 mmol/L (137-145); Total Protein 6.8 g/dL (6.3-8.2)
[2020-10-31 13:37] LABS: Free T4, Direct Thyroxine 1.29 ng/dL (0.78-2.19)
== END ==
PROVIDERS: PCP Nurse Practitioner Family; Referring Provider Nurse Practitioner Family; Visit Provider Nurse Practitioner Family
DX: Z00.00 Encounter for general adult medical examination without abnormal findings (principal); E03.9 Hypothyroidism, unspecified; R73.9 Hyperglycemia, unspecified
CPT/HCPCS: 36415; 80053; 83036; 84439; 84443; 85027

== ENCOUNTER → 2020-12-04 15:53 | Outpatient (CLI) | payer BC, SELFPAY ==
[2019-08-25 10:42] VITALS: BMI 47.2
[2020-12-04] MEDS: COVID-19 VACC #1, MRNA(MOD) 100 MCG/0.5 ML VIAL IM (16:06)
== END ==
PROVIDERS: PCP Nurse Practitioner Family; Visit Provider Internal Medicine
DX: Z23 Encounter for immunization (principal)
CPT/HCPCS: 0011A; 91301

== ENCOUNTER → 2020-12-25 09:46 | Outpatient (CLI) | payer BC, SELFPAY ==
[2019-08-25 10:42] VITALS: BMI 47.2
[2020-12-25 10:31] LABS: Hematocrit 40.4 % (36-46); Hemoglobin 13.4 g/dL (12.0-16.0); Mean Corpuscular HGB Conc 33.2 % (30-36); Mean Corpuscular Hemoglobin 29.2 PG (26-34); Mean Corpuscular Volume 88.1 fL (80-100); Platelet Count 173 X10^3/uL (150-400); Red Blood Cell Count 4.59 X10^6/uL (4.0-5.2); Red Cell Distribution Width 15.7 % (11.6-14.8)
[2020-12-25 10:41] LABS: Hemoglobin A1C% w Est Avg Glu 6.8 % (4.0-6.0)
[2020-12-25 10:44] LABS: Alanine Aminotransferase 44 IU/L (<35); Albumin 4.1 g/dL (3.5-5.0); Albumin Globulin Ratio 1.5 (1.0-2.8); Alkaline Phosphatase 48 U/L (38-126); Aspartate Aminotransferase 45 IU/L (14-36); BUN Creatinine Ratio 16.5 (6-22); Bilirubin Total 0.7 mg/dL (0.2-1.3); Bilirubin Unconjugated 0.8 mg/dL (0.0-1.1); Blood Urea Nitrogen 13 mg/dL (7-17); Calcium 9.2 mg/dL (8.4-10.2); Carbon Dioxide 27 mmol/L (22-32); Chloride 104 mmol/L (98-107); Cholesterol 142 mg/dL (140-199); Estimated Glomerular Filt Rate > 60.0 mL/min (>60); Globulin 2.7 g/dL (1.7-4.1); Glucose 129 mg/dL (70-100); HDL Cholesterol 58 mg/dL (40-60); HEMOLYSIS < 15 (0-50); LDL Cholesterol Calculated 60 mg/dL (<100); Sodium 139 mmol/L (137-145); Total Protein 6.8 g/dL (6.3-8.2); Triglycerides 118 mg/dL (35-150)
[2020-12-25 11:15] LABS: Free T4, Direct Thyroxine 1.27 ng/dL (0.78-2.19)
[2020-12-25 11:29] LABS: Thyroid Stimulating Hormone 1.04 uIU/mL (0.47-4.68)
== END ==
PROVIDERS: PCP Nurse Practitioner Family; Referring Provider Nurse Practitioner Family; Visit Provider Nurse Practitioner Family
DX: E11.9 Type 2 diabetes mellitus without complications (principal); K76.0 Fatty (change of) liver, not elsewhere classified; R79.89 Other specified abnormal findings of blood chemistry; E03.9 Hypothyroidism, unspecified
CPT/HCPCS: 36415; 80053; 80061; 80076; 83036; 84439; 84443; 85027

== ENCOUNTER → 2021-01-01 15:29 | Outpatient (CLI) | payer BC, SELFPAY ==
[2019-08-25 10:42] VITALS: BMI 47.2
[2021-01-01] MEDS: COVID-19 VACC #2, MRNA(MOD) 100 MCG/0.5 ML VIAL IM (15:35)
== END ==
PROVIDERS: PCP Nurse Practitioner Family; Visit Provider Internal Medicine
DX: Z23 Encounter for immunization (principal)
CPT/HCPCS: 0012A; 91301

== ENCOUNTER → 2021-01-22 10:41 | Outpatient (CLI) | payer BC, SELFPAY ==
[2019-08-25 10:42] VITALS: BMI 47.2
[2021-01-22 13:20] LABS: Appearance Urine UA CLEAR; Bilirubin Urine UA NEGATIVE (NEGATIVE); Color Urine UA YELLOW; Glucose Urine UA NEGATIVE (Negative); Ketones Urine UA NEGATIVE (NEGATIVE); Leukocyte Esterase Urine UA 1+ (NEGATIVE); Nitrite Urine UA NEGATIVE (Negative); Occult Blood Urine UA NEGATIVE (Negative); Protein Urine UA NEGATIVE (Negative); Specific Gravity Urine UA 1.025 (1.000-1.035); Urobilinogen Urine UA 0.2 E.U./dL (0.2)
[2021-01-22 13:46] LABS: Bacteria Urine Many (>30); RBC Urine 1-5/HPF (0-5/HPF); Squamous Epithelial Cell Urine 10-30 /HPF (0-5/HPF); WBC Urine 10-30/HPF (0-5/HPF)
[2021-01-22 13:47] LABS: Culture Indicated Urine Cult Not Indicated
== END ==
PROVIDERS: PCP Nurse Practitioner Family; Visit Provider Registered Nurse Diabetes Educator
DX: R31.9 Hematuria, unspecified (principal)
CPT/HCPCS: 81001

== ENCOUNTER → 2021-01-28 15:43 | Outpatient (CLI) | payer BC, SELFPAY ==
[2019-08-25 10:42] VITALS: BMI 47.2
--- NOTE | 2021-01-28 | DI.ECHO.S_ITS ---
[facility]---------+ [facility] +---------+ : : [address] : [address] [place] : : : : [id number] : : : : Phone: [phone]---------+ Echocardiogram Report + + :Name: SEVEN ESTEVEZ Study Date: 01/28/2021 Height: 64 in : :[facility] ReadingLocation: Weight: 325 lb : : Gender: Female BSA: 2.4 m2 : :: 1965 Age: 56 yrs BP: 148/80 mmHg: :Reason For Study: CARDIOMEGALY : :Ordering Physician: TAMIKO, : :ESTEPHANIE Performed By: Caitlin Martell : :Referring: ESTEPHANIE BOYKIN : + + Interpretation Summary 1) Mildly increased left ventricular thickness (concentric) with hyperdynamic systolic function (EF 70-75%). 2) Increased LVOT gradient (peak 37mmHg), possibly due to hyperdynamic state (stroke volume 106cc). 3) Normal right ventricular size and function. 4) No significant valvular abnormalities. 5) Compared to the Echo done 09/15/2019, no significant change. Procedure: A two-dimensional transthoracic echocardiogram with color flow and Doppler was performed. The study quality was technically adequate. Comparison is made with the echocardiogram of 09/15/2019. The patient was in sinus rhythm with heart rates between 66-87 bpm during the exam. Left Ventricle: The left ventricle is normal in size. There is mild concentric left ventricular hypertrophy. Continuous wave Doppler suggest outflow obstruction with peak velocity near 3.06 m/sec. Visually there is no obvious obstruction in the LVOT. Pulse wave Doppler highest peak gradient was along the mid LV cavity, which suggests there is some obstruction in the mid LV cavity. The ejection fraction is estimated to be 70-75%. Right Ventricle: The right ventricle is normal in size and function. Atria: Both atria are normal in size. There is no Doppler evidence for an interatrial shunt. Mitral Valve: The mitral valve is normal in structure and function. There is trace mitral regurgitation. Aortic Valve: The aortic valve opens well. There is no hemodynamically significant valvular aortic stenosis. No aortic regurgitation is present. Tricuspid Valve: The tricuspid valve is normal in structure and function. Pulmonary artery pressures cannot be estimated because of the lack of a measurable TR jet velocity but the IVC suggests a CVP of around 3 mmHg. No tricuspid regurgitation. Pulmonic Valve: The pulmonic valve is not well visualized. There is no pulmonic valvular regurgitation. Great Vessels: The aortic root is normal size. The dimensions of the ascending aorta are normal. The IVC is of normal diameter and collapses greater than 50% with a sniff. This suggests a low right atrial pressure of 3 mm Hg. Pericardium/ Pleura There is no pericardial effusion. There is no pleural effusion. MMode/2D Measurements & Calculations LVIDd: 4.1 cm LVOT diam: 2.1 cm LVIDs: 2.4 cm Ao root diam: 3.0 cm FS: 42.8 % asc Aorta Diam: 3.1 cm IVSd: 1.2 cm Ao Arch Diam (Prox Trans): 3.0 cm LVPWd: 1.2 cm LV douglas. diameter/BSA (cm/m^2): 1.7 LV sys. diameter/BSA (cm/m^2): 0.98 LA A2 area: 20.4 cm2 RA long axis: 4.7 cm LA A4 area: 18.8 cm2 RA area: 13.9 cm2 LA length (vol): 5.2 cm RA vol: 34.9 ml LA vol: 62.8 ml RA : 14.5 ml/m2 LA vol index: 26.1 ml/m2 IVC diam: 1.4 cm RVD1 (basal): 2.9 cm TAPSE: 1.9 cm Doppler Measurements & Calculations Ao V2 max: 297.5 cm/sec LVOT Max Javad: 137.6 cm/sec Ao V2 mean: 198.3 cm/sec LV V1 max P.6 mmHg Ao max P.4 mmHg LV V1 VTI: 31.3 cm Ao mean P.0 mmHg SHIVA(I,D): 1.8 cm2 Ao V2 VTI: 58.3 cm SHIVA(V,D): 1.6 cm2 sev ratio: 0.54 SHIVA indexed to BSA (cm^2/m^2): 0.76 MV E max javad: 79.5 cm/sec PA V2 max: 132.4 cm/sec MV A max javad: 89.7 cm/sec PA V2 mean: 95.5 cm/sec MV E/A: 0.89 PA mean P.1 mmHg Med Peak E' Javad: 7.6 cm/sec PA pr(Accel): 55.0 mmHg E/E' med: 10.5 Lat Peak E' Javad: 9.2 cm/sec E/E' lat: 8.6 E/e' average: 9.6 MV dec time: 0.22 sec SV(LVOT): 106.1 ml Reading Physician:08:51 AM
== END ==
PROVIDERS: PCP Nurse Practitioner Family; Referring Provider Internal Medicine Cardiovascular Disease; Visit Provider Internal Medicine Cardiovascular Disease
DX: I51.7 Cardiomegaly (principal); Q24.8 Other specified congenital malformations of heart
CPT/HCPCS: 93306

== ENCOUNTER → 2021-02-27 09:22 | Outpatient (CLI) | payer BC, SELFPAY ==
[2019-08-25 10:42] VITALS: BMI 47.2
[2021-02-27 10:35] LABS: Alanine Aminotransferase 44 IU/L (<35); Albumin 4.1 g/dL (3.5-5.0); Albumin Globulin Ratio 1.5 (1.0-2.8); Alkaline Phosphatase 48 U/L (38-126); Aspartate Aminotransferase 45 IU/L (14-36); Blood Urea Nitrogen 12 mg/dL (7-17); Calcium 9.1 mg/dL (8.4-10.2); Carbon Dioxide 32 mmol/L (22-32); Chloride 104 mmol/L (98-107); Estimated Glomerular Filt Rate > 60.0 mL/min (>60); Globulin 2.7 g/dL (1.7-4.1); Glucose 127 mg/dL (70-100); HEMOLYSIS < 15 (0-50); Sodium 137 mmol/L (137-145); Total Protein 6.8 g/dL (6.3-8.2)
[2021-02-27 11:10] LABS: Hemoglobin A1C% w Est Avg Glu 6.6 % (4.0-6.0)
[2021-02-27 11:59] LABS: Free T4, Direct Thyroxine 1.18 ng/dL (0.78-2.19)
[2021-02-28 09:50] LABS: Cholesterol 138 mg/dL (140-199); HDL Cholesterol 53 mg/dL (40-60); LDL Cholesterol Calculated 59 mg/dL (<100); Triglycerides 129 mg/dL (35-150)
[2021-02-28 09:53] LABS: Add Manual Diff / Slide Review NO; Basophils Absolute Auto 0 /uL (0-100); Basophils Percent Auto 0.8 % (0-2); Eosinophils Absolute Auto 100 /uL (0-450); Eosinophils Percent Auto 1.6 % (2-4); Hematocrit 41.4 % (36-46); Hemoglobin 13.4 g/dL (12.0-16.0); Lymphocytes Absolute Auto 1700 /uL (1100-4500); Lymphocytes Percent Auto 29.2 % (25-40); Mean Corpuscular HGB Conc 32.4 % (30-36); Mean Corpuscular Hemoglobin 28.8 PG (26-34); Monocytes Absolute Auto 400 /uL (0-900); Monocytes Percent Auto 7.5 % (3-14); Neutrophils Absolute Auto 3600 /uL (1500-7000); Neutrophils Percent Auto 60.9 % (50-75); Platelet Count 177 X10^3/uL (150-400); Red Blood Cell Count 4.65 X10^6/uL (4.0-5.2); White Blood Cell Count 5.9 X10^3/uL (4.5-11.0)
== END ==
PROVIDERS: PCP Registered Nurse; Referring Provider Nurse Practitioner Family; Visit Provider Nurse Practitioner Family
DX: Z00.00 Encounter for general adult medical examination without abnormal findings (principal); E03.9 Hypothyroidism, unspecified; E11.9 Type 2 diabetes mellitus without complications
CPT/HCPCS: 36415; 80053; 80061; 83036; 84439; 84443; 85025

== ENCOUNTER → 2022-01-05 14:32 | Outpatient (CLI) | payer BC, SELFPAY ==
[2019-08-25 10:42] VITALS: BMI 47.2
--- NOTE | 2022-01-05 14:33 | DI.US.S_ITS ---
PROCEDURE: US PERIPH VENOUS LOW EXTREM LT INDICATIONS: LOWER LEFT LEG PAIN TECHNIQUE: Real-time imaging, as well as color and pulse Doppler interrogation, were performed of the lower extremity deep veins from the inguinal ligament to the popliteal fossa. COMPARISON: None. FINDINGS: The common femoral, femoral and popliteal veins are normally compressible, and free of intraluminal thrombus. Color and pulse Doppler demonstrate normal phasic intraluminal flow. There is normal augmentation response to distal compression maneuver. IMPRESSION: No evidence of DVT. Dictated by: Regulo Mathias M.D. on 01/05/2022 at 15:28 Approved by: Regulo Mathias M.D. on 01/05/2022 at 15:29
== END ==
PROVIDERS: PCP Registered Nurse; Referring Provider Nurse Practitioner Family; Visit Provider Nurse Practitioner Family
DX: M79.605 Pain in left leg (principal)
CPT/HCPCS: 93971

== ENCOUNTER → 2022-02-16 14:11 | Outpatient (CLI) | payer BC, SELFPAY ==
[2019-08-25 10:42] VITALS: BMI 47.2
--- NOTE | 2022-02-16 | DI.MG.S_ITS ---
BILATERAL DIGITAL SCREENING MAMMOGRAM 3D/2D WITH CAD: 02/16/2022 CLINICAL: Routine screening. Comparison is made to exams dated: 09/14/2018 mammogram, 09/07/2013 mammogram, and 05/09/2012 mammogram - [facility]. There are scattered fibroglandular elements in both breasts. Current study was also evaluated with a Computer Aided Detection (CAD) system. No significant masses, calcifications, or other findings are seen in either breast. There has been no significant interval change. IMPRESSION: NEGATIVE There is no mammographic evidence of malignancy. A 1 year screening mammogram is recommended. This exam was interpreted at Station ID: [id number]. NOTE: For mammograms, a report in lay terms will be sent to the patient. Approximately 15% of breast malignancies will not be visualized mammographically. In the management of a palpable breast mass, a negative mammogram must not discourage biopsy of a clinically suspicious lesion. Electronically Signed By: Isaac Chi M.D. at/carmelo:02/16/2022 17:43:10 letter sent: Normal Exam ACR BI-RADS Category 1: Negative 3341F
== END ==
PROVIDERS: PCP Registered Nurse; Referring Provider Registered Nurse Diabetes Educator; Visit Provider Registered Nurse Diabetes Educator
DX: Z12.31 Encounter for screening mammogram for malignant neoplasm of breast (principal)
CPT/HCPCS: 77063; 77067

== ENCOUNTER → 2022-04-22 09:16 | Outpatient (CLI) | payer BC, SELFPAY ==
[2019-08-25 10:42] VITALS: BMI 47.2
--- NOTE | 2022-04-22 09:17 | DI.ECHO.S_ITS ---
[facility] +---------+ [facility] +---------+ : : [address] : [address] : : : : [id number] : : : : Phone: [phone] +---------+ Echocardiogram Report + + :Name: SEVEN ESTEVEZ Study Date: 04/22/2022 Height: 64 in : :[facility] ReadingLocation: Weight: 313 lb : : Gender: Female BSA: 2.4 m2 : :: 1965 Age: 57 yrs BP: 121/77 mmHg: :Reason For Study: OUTFLOW TRACT OBSTRUCTION : :Ordering Physician: TAMIKO, : :TITO Performed By: Caitlin Martell : :Referring: ESTEPHANIE BOYKIN : + + Interpretation Summary 1) Mildly increased left ventricular thickness (concentric) with normal systolic function (EF 65-70%). 2) Increased LVOT gradient (peak 49mmHg with valsalva), possibly due to hyperdynamic state (stroke volume 111cc). 3) Normal right ventricular size and function. 4) No significant valvular abnormalities. 5) Compared to the Echo done 01/28/2021, no significant change. Procedure: A two-dimensional transthoracic echocardiogram with color flow and Doppler was performed. The study quality was technically adequate. Comparison is made with the echocardiogram of 01/28/2021. The patient was in sinus bradycardia with heart rates between 49-60 bpm during the exam. Left Ventricle: The left ventricle is normal in size. The estimated left ventricular end diastolic volume is 77 ml. The ejection fraction is estimated to be 65-70%. Left ventricular systolic function appears normal without focal wall motion abnormalities. Right Ventricle: The right ventricle is normal in size and function. Atria: Both atria are normal in size. There is no Doppler evidence for an interatrial shunt. Mitral Valve: The mitral valve is normal in structure and function. There is no mitral regurgitation. Aortic Valve: The aortic valve opens well. The peak aortic velocity is 3.05 m/sec. The aortic valve mean gradient is 17 mmHg. No aortic regurgitation is present. Tricuspid Valve: The tricuspid valve is normal in structure and function. There is trace tricuspid regurgitation. The right ventricular systolic pressure is estimated to be at least 26 mmHg based on an estimated right atrial pressure of 3 mm Hg. Pulmonic Valve: The pulmonic valve is not well visualized. There is no pulmonic valvular regurgitation. Great Vessels: The aortic root is normal size. The dimensions of the ascending aorta are normal. The IVC is of normal diameter and collapses greater than 50% with a sniff. This suggests a low right atrial pressure of 3 mm Hg. Pericardium/ Pleura There is no pericardial effusion. There is no pleural effusion. MMode/2D Measurements & Calculations LVIDd: 4.6 cm LVOT diam: 2.1 cm LVIDs: 2.6 cm Ao root diam: 3.0 cm FS: 42.6 % asc Aorta Diam: 3.2 cm IVSd: 1.0 cm Ao Arch Diam (Prox Trans): 3.0 cm LVPWd: 0.97 cm LV douglas. diameter/BSA (cm/m^2): 1.9 LV sys. diameter/BSA (cm/m^2): 1.1 LA A2 area: 19.7 cm2 RA long axis: 4.5 cm LA A4 area: 18.2 cm2 RA area: 13.5 cm2 LA length (vol): 5.4 cm RA vol: 33.9 ml LA vol: 56.0 ml RA : 14.3 ml/m2 LA vol index: 23.7 ml/m2 IVC diam: 1.4 cm RVD1 (basal): 3.9 cm RVD2 (mid): 3.8 cm TAPSE: 2.1 cm Doppler Measurements & Calculations Ao V2 max: 305.1 cm/sec LVOT Max Javad: 112.8 cm/sec Ao V2 mean: 193.3 cm/sec LV V1 max P.1 mmHg Ao max P.5 mmHg LV V1 VTI: 31.7 cm Ao mean P.3 mmHg SHIVA(I,D): 1.6 cm2 Ao V2 VTI: 67.7 cm SHIVA(V,D): 1.3 cm2 sev ratio: 0.47 SHIVA indexed to BSA (cm^2/m^2): 0.69 MV E max javad: 82.3 cm/sec TR max javad: 238.0 cm/sec MV A max javad: 92.3 cm/sec TR max P.7 mmHg MV E/A: 0.89 PA V2 max: 114.4 cm/sec Med Peak E' Javad: 8.2 cm/sec PA V2 mean: 76.5 cm/sec E/E' med: 10.0 PA mean P.6 mmHg Lat Peak E' Javad: 7.6 cm/sec PA pr(Accel): 15.6 mmHg E/E' lat: 10.8 E/e' average: 10.4 MV dec time: 0.30 sec SV(LVOT): 110.5 ml Reading Physician:12:49 PM
== END ==
PROVIDERS: PCP Obstetrics & Gynecology; Referring Provider Internal Medicine Cardiovascular Disease; Visit Provider Internal Medicine Cardiovascular Disease
DX: Q24.8 Other specified congenital malformations of heart (principal)
CPT/HCPCS: 93306

== ENCOUNTER → 2022-05-05 08:23 | Outpatient (CLI) | payer BC, SELFPAY ==
[2019-08-25 10:42] VITALS: BMI 47.2
[2022-05-05 09:50] LABS: Add Manual Diff / Slide Review NO; Basophils Absolute Auto 0 /uL (0-100); Eosinophils Absolute Auto 100 /uL (0-450); Eosinophils Percent Auto 1.6 % (2-4); Hematocrit 41.8 % (36-46); Hemoglobin 13.8 g/dL (12.0-16.0); Lymphocytes Absolute Auto 1400 /uL (1100-4500); Lymphocytes Percent Auto 29.1 % (25-40); Mean Corpuscular Hemoglobin 28.8 PG (26-34); Mean Corpuscular Volume 87.3 fL (80-100); Monocytes Absolute Auto 500 /uL (0-900); Monocytes Percent Auto 9.5 % (3-14); Neutrophils Absolute Auto 2900 /uL (1500-7000); Neutrophils Percent Auto 58.8 % (50-75); Platelet Count 175 X10^3/uL (150-400); Red Blood Cell Count 4.79 X10^6/uL (4.0-5.2); Red Cell Distribution Width 15.8 % (11.6-14.8); White Blood Cell Count 4.9 X10^3/uL (4.5-11.0)
[2022-05-05 11:06] LABS: BUN Creatinine Ratio 15.9 (6-22); Blood Urea Nitrogen 14 mg/dL (7-17); Calcium 8.8 mg/dL (8.4-10.2); Carbon Dioxide 28 mmol/L (22-32); Chloride 102 mmol/L (98-107); Cholesterol 129 mg/dL (140-199); Estimated Glomerular Filt Rate > 60 mL/min (>60); Glucose 93 mg/dL (70-100); HDL Cholesterol 55 mg/dL (40-60); HEMOLYSIS < 15 (0-50); LDL Cholesterol Calculated 47 mg/dL (<100); Potassium 3.7 mmol/L (3.4-5.1); Sodium 137 mmol/L (137-145); Triglycerides 135 mg/dL (35-150)
== END ==
PROVIDERS: PCP Obstetrics & Gynecology; Referring Provider Internal Medicine Cardiovascular Disease; Visit Provider Internal Medicine Cardiovascular Disease
DX: I10 Essential (primary) hypertension (principal); E78.5 Hyperlipidemia, unspecified
CPT/HCPCS: 36415; 80048; 80061; 85025

== ENCOUNTER → 2023-04-29 12:32 | Outpatient (CLI) | payer BC, SELFPAY ==
[2019-08-25 10:42] VITALS: BMI 47.2
--- NOTE | 2023-04-29 | DI.ECHO.S_ITS ---
[facility] +---------+ Hospital +---------+ : : [address] : : : : [phone] : : : : Phone: [phone] : [phone] +---------+ Echocardiogram Report + + :Name: SEVEN ESTEVEZ Study Date: 04/29/2023 Height: 64 in : :[facility] ReadingLocation: Weight: 300 lb : : Gender: Female BSA: 2.3 m2 : :: 1965 Age: 58 yrs BP: 125/75 mmHg: :Reason For Study: Cardiomegaly : :Ordering Physician: TAMIKO, : :ESTEPHANIE Performed By: Annalee Gr : :Referring: ESTEPHANIE BOYKIN : + + Interpretation Summary 1) Normal left ventricular thickness, size, wall motion, and systolic function (EF 60-65%). 2) The right ventricle grossly appears normal in size with probable normal systolic function. 3) Increased LVOT gradient (max 27mmHg) from possibly hyperdynamic state. No aortic stenosis present visually. 4) No significant valvular abnormalities. 5) Compared to the Echo done 04/22/2022, no significant change. Procedure: A two-dimensional transthoracic echocardiogram with color flow and Doppler was performed. The study quality was technically difficult. Comparison is made with the echocardiogram of 04/22/2022. A contrast injection of Definity was performed to improve assessment of LV function. The patient was in normal sinus rhythm during the exam. Left Ventricle: The left ventricle is normal in size and wall thickness. The ejection fraction is estimated to be 60-65%. Diastolic parameters suggest a relaxation abnormality of the left ventricle, consistent with probable normal filling pressures. Right Ventricle: The right ventricle is not well visualized. The right ventricle grossly appears normal in size with probable normal systolic function. Atria: The left atrial size is normal. Right atrium not well visualized. There is no Doppler evidence for an interatrial shunt. Mitral Valve: The mitral valve is normal. There is mild mitral annular calcification. There is no mitral valve stenosis. There is trace mitral regurgitation. Aortic Valve: The aortic valve opens well. The peak aortic velocity is 2.58 m/sec. The aortic valve mean gradient is 15 mmHg. No aortic regurgitation is present. Tricuspid Valve: The tricuspid valve is not well visualized. There is no tricuspid stenosis. There is trace tricuspid regurgitation. The right ventricular systolic pressure is estimated to be at least 26 mmHg based on an estimated right atrial pressure of 8 mm Hg. Pulmonic Valve: The pulmonic valve is not well visualized. There is no pulmonic valvular stenosis. There is trace pulmonic regurgitation. Great Vessels: The aortic root is normal size. The ascending aorta is normal in size. The pulmonary artery is normal size. The IVC is of normal diameter and collapses less than 50% with a sniff. This suggests a right atrial pressure of 8 mm Hg. Pericardium/ Pleura There is no pericardial effusion. There is no pleural effusion. MMode/2D Measurements & Calculations LVIDd: 4.6 cm LVOT diam: 1.9 cm LVIDs: 2.3 cm Ao root diam: 2.8 cm FS: 50.0 % asc Aorta Diam: 3.2 cm IVSd: 0.80 cm LVPWd: 0.80 cm LV douglas. diameter/BSA (cm/m^2): 2.0 LV sys. diameter/BSA (cm/m^2): 0.99 LA A2 area: 18.4 cm2 LVLs ap4: 5.3 cm LA A4 area: 12.3 cm2 LA length (vol): 5.6 cm LA vol: 34.1 ml LA vol index: 14.7 ml/m2 LVLd ap2: 7.4 cm LVLs ap2: 5.7 cm Doppler Measurements & Calculations Ao V2 max: 261.0 cm/sec LVOT Max Javad: 130.0 cm/sec Ao V2 mean: 180.3 cm/sec LV V1 max P.8 mmHg Ao max P.0 mmHg LV V1 VTI: 30.1 cm Ao mean P.0 mmHg SHIVA(I,D): 1.5 cm2 Ao V2 VTI: 56.9 cm SHIVA(V,D): 1.4 cm2 sev ratio: 0.53 SHIVA indexed to BSA (cm^2/m^2): 0.63 MV E max javad: 86.3 cm/sec TR max javad: 209.0 cm/sec MV A max javad: 102.0 cm/sec TR max P.5 mmHg MV E/A: 0.85 PA V2 max: 117.0 cm/sec Med Peak E' Javad: 9.1 cm/sec PA V2 mean: 81.4 cm/sec E/E' med: 9.5 PA mean P.0 mmHg Lat Peak E' Javad: 10.2 cm/sec PA pr(Accel): 43.5 mmHg E/E' lat: 8.5 E/e' average: 9.0 MV dec time: 0.23 sec SV(LVOT): 83.4 ml AV VR_phl: 0.50 SHIVA(VTI)/BSA_phl: 0.52 Reading Physician:12:45 PM
== END ==
PROVIDERS: PCP Obstetrics & Gynecology; Referring Provider Internal Medicine Cardiovascular Disease; Visit Provider Internal Medicine Cardiovascular Disease
DX: I34.81 Nonrheumatic mitral (valve) annulus calcification (principal); Q24.8 Other specified congenital malformations of heart; I51.7 Cardiomegaly
CPT/HCPCS: 93306; Q9957

== ENCOUNTER → 2023-04-29 12:34 | Outpatient (CLI) | payer BC, SELFPAY ==
[2019-08-25 10:42] VITALS: BMI 47.2
--- NOTE | 2023-04-29 | DI.MG.S_ITS ---
BILATERAL DIGITAL SCREENING MAMMOGRAM 3D/2D WITH CAD: 04/29/2023 CLINICAL: Routine screening. Comparison is made to exams dated: 09/14/2018 mammogram, 02/16/2022 mammogram, and 09/07/2013 mammogram - [facility]. There are scattered areas of fibroglandular density in both breasts (category b / 25%-50% glandular tissue). Current study was also evaluated with a Computer Aided Detection (CAD) system. No significant masses, calcifications, or other findings are seen in either breast. There has been no significant interval change. IMPRESSION: NEGATIVE There is no mammographic evidence of malignancy. A 1 year screening mammogram is recommended. Based on the Tyrer Cuzick model (a risk assessment model) the patient's lifetime risk is 8.5% and her 10 year risk is 3.4%. According to the ACR, ACS, and NCCN guidelines, an annual breast MRI exam along with mammogram is recommended if the patient's lifetime risk is 20% or greater. This exam was interpreted at Station ID: [id number]. NOTE: For mammograms, a report in lay terms will be sent to the patient. Approximately 15% of breast malignancies will not be visualized mammographically. In the management of a palpable breast mass, a negative mammogram must not discourage biopsy of a clinically suspicious lesion. Electronically Signed By: Isaac Chi M.D. aty/:05/09/2023 14:05:06 letter sent: Normal Exam ACR BI-RADS Category 1: Negative 3341F
== END ==
PROVIDERS: PCP Obstetrics & Gynecology; Referring Provider Obstetrics & Gynecology; Visit Provider Obstetrics & Gynecology
DX: Z12.31 Encounter for screening mammogram for malignant neoplasm of breast (principal)
CPT/HCPCS: 77063; 77067

== ENCOUNTER → 2024-06-05 10:47 | Outpatient (CLI) | payer BC, SELFPAY ==
[2019-08-25 10:42] VITALS: BMI 47.2
--- NOTE | 2024-06-05 | DI.MG.S_ITS ---
BILATERAL DIGITAL SCREENING MAMMOGRAM 3D/2D WITH CAD: 06/05/2024 CLINICAL: Routine screening. Comparison is made to exams dated: 02/16/2022 mammogram, 04/29/2023 mammogram, and 09/14/2018 mammogram - [facility]. There are scattered areas of fibroglandular density (category b / 25%-50% glandular tissue). Current study was also evaluated with a Computer Aided Detection (CAD) system. No significant masses, calcifications, or other findings are seen in either breast. There has been no significant interval change. IMPRESSION: NEGATIVE There is no mammographic evidence of malignancy. A 1 year screening mammogram is recommended. Based on the Tyrer Cuzick model (a risk assessment model) the patient's lifetime risk is 8.3% and her 10 year risk is 3.5%. According to the ACR, ACS, and NCCN guidelines, an annual breast MRI exam along with mammogram is recommended if the patient's lifetime risk is 20% or greater. This exam was interpreted at Station ID: [id number]. NOTE: For mammograms, a report in lay terms will be sent to the patient. Approximately 15% of breast malignancies will not be visualized mammographically. In the management of a palpable breast mass, a negative mammogram must not discourage biopsy of a clinically suspicious lesion. Electronically Signed By: Eugenio garcia/carmelo:06/09/2024 14:00:01 letter sent: Normal Exam ACR BI-RADS Category 1: Negative
== END ==
PROVIDERS: Referring Provider Obstetrics & Gynecology; Visit Provider Obstetrics & Gynecology
DX: Z12.31 Encounter for screening mammogram for malignant neoplasm of breast (principal)
CPT/HCPCS: 77063; 77067

== ENCOUNTER → 2024-07-12 09:31 | Outpatient (CLI) | payer BC, SELFPAY ==
[2019-08-25 10:42] VITALS: BMI 47.2
[2024-07-12 10:06] LABS: Hematocrit 42.9 % (36-46); Hemoglobin 14.3 g/dL (12.0-16.0); Mean Corpuscular HGB Conc 33.4 % (30-36); Mean Corpuscular Volume 89.7 fL (80-100); Platelet Count 160 X10^3/uL (150-400); Red Blood Cell Count 4.79 X10^6/uL (4.0-5.2); White Blood Cell Count 5.8 X10^3/uL (4.5-11.0)
[2024-07-12 10:30] LABS: BUN Creatinine Ratio 8.4 (6-22); Blood Urea Nitrogen 10 mg/dL (7-17); Calcium 9.2 mg/dL (8.4-10.2); Carbon Dioxide 22 mmol/L (22-32); Chloride 106 mmol/L (98-107); Cholesterol 140 mg/dL (140-199); Estimated Glomerular Filt Rate 52 mL/min (>60); Glucose 95 mg/dL (80-110); HDL Cholesterol 81 mg/dL (40-60); HEMOLYSIS < 15 (0-50); LDL Cholesterol Calculated 33 mg/dL (<100); Sodium 137 mmol/L (137-145); Triglycerides 132 mg/dL (35-150)
== END ==
PROVIDERS: PCP Obstetrics & Gynecology; Referring Provider Internal Medicine Cardiovascular Disease; Visit Provider Internal Medicine Cardiovascular Disease
DX: E78.5 Hyperlipidemia, unspecified (principal); I10 Essential (primary) hypertension
CPT/HCPCS: 36415; 80048; 80061; 85027

== ENCOUNTER → 2024-10-08 12:37 | Outpatient (CLI) | payer BC, SELFPAY ==
[2019-08-25 10:42] VITALS: BMI 47.2
--- NOTE | 2024-10-08 12:40 | DI.RAD.S_ITS ---
PROCEDURE: XR ANKLE RT MIN 3V INDICATIONS: Ankle pain TECHNIQUE: 3 views of the ankle were acquired. COMPARISON: None. FINDINGS: Bones: Age-indeterminate small bone fragment at the tip of the medial malleolus. There is no displaced fracture or dislocation. Moderate calcaneal and plantar enthesopathy. Mild midfoot degenerative changes. Soft tissues: No suspicious calcifications elsewhere. Soft tissue swelling is present. IMPRESSION: Background degenerative changes. There is moderate enthesopathy at the calcaneus at the plantar origin and Achilles insertion. Possible soft tissue swelling. Age-indeterminate tiny bone fragment from the tip of the medial malleolus, probably from prior trauma. If there is high concern for further derangement, consider MRI evaluation. Dictated by: Jann Verma M.D. on 10/08/2024 at 17:48 Approved by: Jann Verma M.D. on 10/08/2024 at 17:49
--- NOTE | 2024-10-08 12:40 | DI.RAD.S_ITS ---
PROCEDURE: XR TIBIA FUBULA RT 2V INDICATIONS: Lower leg pain TECHNIQUE: 2 views of the tibia and fibula were acquired. COMPARISON: None. FINDINGS: Bones: Extensor mechanism enthesopathy partially seen at the patella and tibial tuberosity, moderate. Ankle findings are separately dictated. No acute displaced fracture of the tibial shaft or fibular shaft. Slight periosteal thickening of the proximal fibula is present. Soft tissues: No suspicious calcifications otherwise. IMPRESSION: Slight periosteal thickening of the proximal fibula may be from prior injury. No acute displaced fractures seen. Partially seen extensor mechanism moderate enthesopathy at the knee. Ankle findings are separately dictated. If there is high concern for further derangement, consider MRI evaluation. Dictated by: Jann Verma M.D. on 10/08/2024 at 17:50 Approved by: Jann Verma M.D. on 10/08/2024 at 17:51
== END ==
PROVIDERS: PCP Obstetrics & Gynecology; Referring Provider Nurse Practitioner Family; Visit Provider Nurse Practitioner Family
DX: S96.911A Strain of unspecified muscle and tendon at ankle and foot level, right foot, initial encounter (principal); W18.30XA Fall on same level, unspecified, initial encounter
CPT/HCPCS: 73590; 73610

== ENCOUNTER 2024-11-10 15:08 | Emergency (ER) | payer BC, SELFPAY ==
[2019-08-25 10:42] VITALS: BMI 47.2
[2024-11-10] VITALS (20 sets, daily range): BP systolic 91–113; BP diastolic 42–66; PULSE 70–88; RESP 16–32; TEMP 36.4; O2SAT 2–100; BMI 44.8
--- NOTE | 2024-11-10 15:34 | EKG_ITS ---
[address] [address] Test Date: 2024-11-10 Pat Name: Negar Husain Department: Room: Gender: Female Flooring Salesperson: TAHIRA : 1965 Requested By: Order Number: [id number] Reading MD: Edinson Pacheco Measurements Intervals [place] Rate: 69 P: 53 DC: 180 QRS: 27 QRSD: 74 T: 52 QT: 392 QTc: 420 Interpretive Statements Normal sinus rhythm Low voltage QRS Electronically Signed On 11-11-2024 18:29:22 PDT by Edinson Pacheco
[2024-11-10 16:09] LABS: Add Manual Diff / Slide Review NO; Basophils Absolute Auto 100 /uL (0-100); Eosinophils Absolute Auto 100 /uL (0-450); Eosinophils Percent Auto 0.7 % (2-4); Hematocrit 36.7 % (36-46); Hemoglobin 12.3 g/dL (12.0-16.0); Lymphocytes Absolute Auto 1700 /uL (1100-4500); Lymphocytes Percent Auto 21.4 % (25-40); Mean Corpuscular HGB Conc 33.6 % (30-36); Mean Corpuscular Hemoglobin 30.8 PG (26-34); Mean Corpuscular Volume 91.8 fL (80-100); Monocytes Absolute Auto 900 /uL (0-900); Monocytes Percent Auto 11.4 % (3-14); Neutrophils Absolute Auto 5300 /uL (1500-7000); Neutrophils Percent Auto 65.5 % (50-75); Platelet Count 154 X10^3/uL (150-400); Red Blood Cell Count 3.99 X10^6/uL (4.0-5.2); Red Cell Distribution Width 14.7 % (11.6-14.8); White Blood Cell Count 8.1 X10^3/uL (4.5-11.0)
[2024-11-10 16:15] LABS: Alanine Aminotransferase 146 IU/L (<35); Albumin Globulin Ratio 1.5 (1.0-2.8); Alkaline Phosphatase 74 U/L (38-126); Aspartate Aminotransferase 179 IU/L (14-36); Bilirubin Total 1.3 mg/dL (0.2-1.3); Blood Urea Nitrogen 58 mg/dL (7-17); Calcium 9.4 mg/dL (8.4-10.2); Carbon Dioxide 17 mmol/L (22-32); Chloride 108 mmol/L (98-107); Globulin 2.7 g/dL (1.7-4.1); Glucose 100 mg/dL (80-110); Lipase 779 U/L (23-300); Potassium 3.8 mmol/L (3.4-5.1); Sodium 138 mmol/L (137-145); Total Protein 6.7 g/dL (6.3-8.2)
[2024-11-10 16:23] LABS: BUN Creatinine Ratio 7.3 (6-22); Estimated Glomerular Filt Rate 5 mL/min (>60); HEMOLYSIS 28 (0-50)
[2024-11-10 16:52] LABS: Thyroid Stimulating Hormone < 0.015 uIU/mL (0.47-4.68)
--- NOTE | 2024-11-10 17:20 | DI.CT.S_ITS ---
PROCEDURE: CT ABDOMEN PELVIS WO CON INDICATIONS: new onset renal failure with elevated liver enzymes TECHNIQUE: Axial sections were acquired from the lung bases to the pubic symphysis. Coronal and sagittal reformats were performed. For radiation dose reduction, the following was used: automated exposure control, adjustment of mA and/or kV according to patient size. COMPARISON: 08/04/2024. FINDINGS: Image quality: Diagnostic. Lower Chest: No significant findings. URINARY: Right Kidney: No stones or hydronephrosis. Right Ureter: No hydroureter. Left Kidney: No stones or hydronephrosis. Left Ureter: No hydroureter. Bladder: Normal wall thickness. No stones. ABDOMEN: Liver: No contour-deforming solid mass. Gallbladder: Gallbladder is surgically absent. Biliary ducts: No biliary dilation. Pancreas: No ductal dilation. Spleen: Size is within normal limits. Adrenal Glands: No adrenal nodules. Stomach and Bowel: Postsurgical changes are noted in right lower quadrant with surgical anastomosis appears grossly intact. There is no bowel obstruction or abnormal bowel wall thickening. Appendix is visualized and is within normal limits. No abscess collection. Peritoneum: No abnormal intraperitoneal fluid. No free air. Ventral Wall: No hernia. Abdominal Nodes: No enlarged retroperitoneal or mesenteric lymph nodes. Vessels: Aorta and inferior vena cava are normal in size. PELVIS: Pelvic Organs: Unremarkable. Pelvic Nodes: Unremarkable. Miscellaneous: No inguinal hernias are seen. Bones: No aggressive appearing bony lesions. IMPRESSION: 1. No obstructing renal stones or hydronephrosis. Normal appearing urinary bladder. 2. No bowel obstruction or abnormal bowel wall thickening. Postsurgical changes in right lower quadrant involving distal small bowel loops with intact surgical anastomosis. No evidence of acute appendicitis or diverticulitis. No free fluid or free air. Dictated by: Oliver Park M.D. on 11/10/2024 at 18:05 Approved by: Oliver Park M.D. on 11/10/2024 at 18:08
[2024-11-10 18:06] LABS: Appearance Urine UA SL CLOUDY; Bilirubin Urine UA NEGATIVE (NEGATIVE); Color Urine UA YELLOW; Glucose Urine UA NEGATIVE (Negative); Ketones Urine UA NEGATIVE (NEGATIVE); Leukocyte Esterase Urine UA NEGATIVE (NEGATIVE); Nitrite Urine UA NEGATIVE (Negative); Occult Blood Urine UA 3+ (Negative); Protein Urine UA 2+ (Negative); Specific Gravity Urine UA 1.015 (1.000-1.035); Urobilinogen Urine UA 0.2 E.U./dL (0.2)
[2024-11-10 18:08] LABS: pH Urine UA 5.5 (4.5-8.0)
[2024-11-10 18:21] LABS: RBC Urine None Seen (0-5/HPF); Urine Volume 10mL (spun); WBC Urine None Seen (0-5/HPF)
[2024-11-10 18:22] LABS: Amorphous Sediment Urine 2+; Bacteria Urine Few (2-10); Hyaline Casts Urine 0-1/LPF; Mucus Urine 1+ (Negative); Red Blood Cell Casts Urine 1-5/LPF; Renal Epithelial Cells Urine 1-5/HPF (0-1/HPF); Squamous Epithelial Cell Urine 5-10 /HPF (0-5/HPF)
[2024-11-10 18:23] LABS: Culture Indicated Urine Cult Not Indicated
--- NOTE | 2024-11-10 18:27 | ED.RECABL ---
HPI - Recheck/Abnormal Lab/Rx General Chief Complaint: Recheck/Abnormal Lab/Rx Stated Complaint: sent by PCP abnormal labs Time Seen by Provider: 11/10/24 18:01 History of Present Illness HPI narrative: 59-year-old female with a past medical history of diabetes hypothyroidism comes into the ED from home for evaluation of abnormal lab work. According to the patient she had lab work drawn yesterday, states that she was sent in because she had abnormal kidney functions. She states that her last lab was on February of 2024 at that time her creatinine was 1.09 she states that her lab work now stating it is 6.65. BUN was 8 now 53. She states that the only reason she got lab work done was because she has been having issues with the blood pressure, she states that her blood pressure has been low compared to the normal however has a history of hypertension, states that this is most likely secondary to the fact that she has been losing weight over the past 2 years according to the primary care doctor. She otherwise is not complaining of any other symptoms such as headache visual disturbances chest pain shortness breath fever chills nausea vomiting abdominal pain or any other GI/ symptoms time. Related Data Home Medications Medication Instructions Recorded Confirmed MULTIVITAMIN (One Daily 1 tab PO Q DAY ##0 08/17/11 10/08/24 Multivitamin) Respironics Dreamstation CPAP #1 ea 01/12/19 10/08/24 estradiol 0.75 mg/0.75 gram (0.1%) 1 packet transdermal DAILY 10/08/24 10/08/24 transdermal gel packet metoprolol succinate 100 mg 100 mg PO DAILY 10/08/24 10/08/24 tablet,extended release 24 hr rosuvastatin 40 mg tablet 40 mg PO DAILY 10/08/24 10/08/24 tirzepatide 12.5 mg/0.5 mL 12.5 mg SUBCUT QWEEK 10/08/24 10/08/24 subcutaneous pen injector ([place]) Previous Rx's Medication Instructions Recorded lisinopril 10 mg tablet 10 mg PO DAILY #90 tabs 02/27/21 levothyroxine 125 mcg tablet See Rx Instructions .Route 10/21/21 .COMPLEX #90 tabs metformin 500 mg tablet,extended 500 mg PO BID #180 tabs 12/02/21 release 24 hr Allergies Allergy/AdvReac Type Severity Reaction Status Date / Time hydrocodone [HYDROCODONE] Allergy Severe HALLUCINATI Verified 10/08/24 11:58 ON aspirin [ASPIRIN] Allergy Mild RED SPOTS Verified 10/08/24 11:58 ALL OVER HER BODY ibuprofen [IBUPROFEN] Allergy Mild RED SPOTS Verified 10/08/24 11:58 ALL OVER HER BODY nut - unspecified Allergy Verified 10/08/24 11:58 Review of Systems Review of Systems Narrative: General: Abnormal lab work Denies fever, chills, weight loss HEENT: Denies headache, eye drainage, eye irritation, head trauma, sore throat, voice change Cardiovascular: Denies any chest pain, palpitations, tachycardia Respiratory: Denies any shortness of breath, cough, wheeze, stridor GI/: Denies any abdominal pain, nausea, vomiting, diarrhea, bright red blood per rectum, melanotic stools, urinary frequency, urinary retention, dysuria, hematuria MSK: Denies any joint pain, muscle pains, swelling Skin: Denies any rashes, lesions, discoloration Neuro: Denies any headache, lightheadedness, dizziness, fainting, weakness Psych: Denies SI/HI Patient History Medical History Acquired hypothyroidism (2004) Fatty liver Hyperlipidemia Hypertension (1989) Hypothyroid Impaired fasting glucose Kidney stones Left ventricular hypertrophy (07/2019) Left ventricular outflow obstruction (07/2019) Morbid obesity with BMI of 40.0-44.9, adult Obstructive sleep apnea of adult Post hysterectomy menopause Right shoulder pain Type 2 diabetes mellitus (10/2020) Surgical History S/P S/P small bowel resection Status post laparoscopic cholecystectomy Family History Other Cancer Social History household members: spouse and children Smoking Status: Never smoker second hand exposure: Yes (as a child) alcohol intake: current (2x/year) substance use type: does not use Smoking Status: Never smoker Exam Narrative Exam Narrative: General: Cooperative, comfortable, well-developed, not in acute distress HEENT: Normocephalic, atraumatic, PERRLA, normal sclera, eyelids normal, Neck: Active full range of motion, atraumatic Chest: Normal to inspection, negative crepitus, no overlying erythema ecchymosis Respiratory: Normal respiratory effort, not in acute respiratory distress, clear to auscultation bilaterally negative cough, wheeze, tachypnea, rhonchi, rales Cardiology: Regular rate rhythm negative gallop, murmur, rubs GI/: Normal to inspection, soft, nonrigid, no tenderness to palpation, exam deferred MSK: Full range of active range of motion of all 4 extremities, atraumatic Skin: No rashes lesions noted Neuro: Alert awake oriented x3, moves all 4 extremities spontaneously, cranial nerves intact, able to answer all questions appropriately follows commands appropriately Psych: Cooperative, negative suicidal or homicidal ideations Initial Vital Signs Initial Vital Signs: Vital Signs Temperature 97.5 F L 11/10/24 15:16 Pulse Rate 70 11/10/24 15:16 Respiratory Rate 16 11/10/24 15:16 Blood Pressure 109/61 11/10/24 15:16 Pulse Oximetry 100 11/10/24 15:16 Oxygen Delivery Method Room Air 11/10/24 15:16 Course Orders Ordered: ED Orders 11/10/24 17:20 CT abdomen pelvis wo con Stat 11/10/24 17:52 UA Complete [Urinalysis and Microscopic] Stat 11/10/24 19:53 BMP [Basic Metabolic Panel] Stat Discontinued Medications Sodium Chloride (Normal Saline 0.9%) 1,000 mls @ 1,000 mls/hr IV BOLUS ONE Stop: 11/10/24 19:54 Last Infusion: 11/10/24 19:57 Dose: Infused Documented By: Admin: 11/10/24 19:00 Dose: 1,000 mls/hr Documented By: ODILIA Sodium Chloride (Normal Saline 0.9%) 1,000 mls @ 1,000 mls/hr IV BOLUS ONE Stop: 11/11/24 01:06 Last Admin: 11/11/24 00:12 Dose: 1,000 mls/hr Documented By: Vital Signs Vital signs: Vital Signs - 8 hr 11/10/24 17:33 11/10/24 17:51 11/10/24 17:51 Pulse Rate 83 75 Respiratory Rate 22 Blood Pressure 113/58 L Pulse Oximetry 93 97 Oxygen Delivery Method Room Air 11/10/24 18:00 11/10/24 18:00 11/10/24 18:30 Pulse Rate 73 Respiratory Rate 22 Blood Pressure 106/55 L 101/51 L Pulse Oximetry 98 Oxygen Delivery Method 11/10/24 18:30 11/10/24 19:00 11/10/24 19:00 Pulse Rate 75 77 Respiratory Rate 24 25 H Blood Pressure 98/65 Pulse Oximetry 98 97 Oxygen Delivery Method Room Air Room Air 11/10/24 19:30 11/10/24 19:30 11/10/24 20:00 Pulse Rate 78 Respiratory Rate 28 H Blood Pressure 103/55 L 104/52 L Pulse Oximetry 100 Oxygen Delivery Method 11/10/24 20:00 11/10/24 20:30 11/10/24 20:30 Pulse Rate 80 80 Respiratory Rate 29 H 28 H Blood Pressure 104/52 L Pulse Oximetry 97 94 Oxygen Delivery Method Room Air 11/10/24 21:00 11/10/24 21:00 11/10/24 21:30 Pulse Rate 80 Respiratory Rate 28 H Blood Pressure 109/53 L 103/52 L Pulse Oximetry 99 Oxygen Delivery Method Room Air 11/10/24 21:30 11/10/24 22:00 11/10/24 22:00 Pulse Rate 83 84 Respiratory Rate 32 H 30 H Blood Pressure 101/48 L Pulse Oximetry 99 98 Oxygen Delivery Method Room Air 11/10/24 22:30 11/10/24 23:00 11/10/24 23:00 Pulse Rate 86 88 Respiratory Rate 31 H 18 Blood Pressure 104/54 L Pulse Oximetry 99 98 Oxygen Delivery Method Room Air 11/10/24 23:30 11/10/24 23:31 11/10/24 23:35 Pulse Rate 87 87 Respiratory Rate 22 18 Blood Pressure 91/42 L Pulse Oximetry 99 99 Oxygen Delivery Method 11/10/24 23:35 11/11/24 00:00 11/11/24 00:00 Pulse Rate 88 Respiratory Rate 20 Blood Pressure 92/45 L 86/42 L Pulse Oximetry 100 Oxygen Delivery Method 11/11/24 00:04 11/11/24 00:04 11/11/24 00:30 Pulse Rate 86 Respiratory Rate 23 Blood Pressure 89/45 L 92/47 L Pulse Oximetry 100 Oxygen Delivery Method 11/11/24 00:30 11/11/24 01:00 11/11/24 01:00 Pulse Rate 86 89 Respiratory Rate 13 24 Blood Pressure 93/48 L Pulse Oximetry 100 100 Oxygen Delivery Method MDM - Recheck/Abnormal Lab/Rx Differential Diagnosis Differential diagnosis: Likely other (Renal failure, ISAÍAS, electrolyte abnormality, urinary tract infection) Lab Data 11/10/24 15:30 11/10/24 19:53 Labs: Lab Results 11/10/24 11/10/24 11/10/24 Range/Units 15:30 17:52 19:53 WBC 8.1 (4.5-11.0) X10^3/uL RBC 3.99 L (4.0-5.2) X10^6/uL Hgb 12.3 (12.0-16.0) g/dL Hct 36.7 (36-46) % MCV 91.8 (80-100) fL MCH 30.8 (26-34) PG MCHC 33.6 (30-36) % RDW 14.7 (11.6-14.8) % Plt Count 154 (150-400) X10^3/uL Neut % (Auto) 65.5 (50-75) % Lymph % (Auto) 21.4 L (25-40) % [place] % (Auto) 11.4 (3-14) % Eos % (Auto) 0.7 L (2-4) % Baso % (Auto) 1.0 (0-2) % Neut # (Auto) 5300 (8873-7971) /uL Lymph # (Auto) 1700 (8732-5354) /uL [place] # (Auto) 900 (0-900) /uL Eos # (Auto) 100 (0-450) /uL Baso # (Auto) 100 (0-100) /uL Sodium 138 138 (137-145) mmol/L Potassium 3.8 4.1 (3.4-5.1) mmol/L Chloride 108 H 111 H (98-107) mmol/L Carbon Dioxide 17 L 14 L (22-32) mmol/L BUN 58 H 56 H (7-17) mg/dL Creatinine 7.95 H* 7.29 H (0.52-1.04) mg/dL Estimated GFR 5 L 6 L (>60) mL/min BUN/Creatinine Ratio 7.3 7.7 (6-22) Glucose 100 80 (80-110) mg/dL Calcium 9.4 8.6 (8.4-10.2) mg/dL Total Bilirubin 1.3 (0.2-1.3) mg/dL AST 179 H (14-36) IU/L ALT 146 H (<35) IU/L Alkaline Phosphatase 74 (38-126) U/L Total Protein 6.7 (6.3-8.2) g/dL Albumin 4.0 (3.5-5.0) g/dL Globulin 2.7 (1.7-4.1) g/dL Albumin/Globulin Ratio 1.5 (1.0-2.8) Lipase 779 H (23-300) U/L TSH < 0.015 L (0.47-4.68) uIU/mL Urine Color Yellow Urine Appearance Sl cloudy Urine pH 5.5 (4.5-8.0) Ur Specific [place] 1.015 (1.000-1.035) Urine Protein 2+ H (Negative) Urine Glucose (UA) Negative (Negative) g/dL Urine Ketones Negative (NEGATIVE) Urine Occult Blood 3+ H (Negative) Urine Nitrate Negative (Negative) Urine Bilirubin Negative (NEGATIVE) Urine Urobilinogen 0.2 (0.2) E.U./dL Ur Leukocyte Esterase Negative (NEGATIVE) Urine RBC None seen (0-5/HPF) Urine WBC None seen (0-5/HPF) Ur Squamous Epith Cells 5-10 /hpf H (0-5/HPF) Ur Renal Epithelial Cell 1-5/hpf H (0-1/HPF) Amorphous Sediment 2+ Urine Bacteria Few (2-10) H (None) Hyaline Casts 0-1/lpf (None) RBC Casts 1-5/lpf H (None) Urine Mucus 1+ H (Negative) Ur Culture Indicated? Cult not indicated Vol Urine Centrifuged 10ml (spun) Imaging Data CT scan - abdomen/pelvis: Radiologist's Impression: [address] [address] [address] Scan Report Signed Patient: Negar Husain MR#: [id number] : 1965 Acct:[id number] Age/Sex: 59 / F Date of Service: 11/10/24 Loc: ED Accession Number: [id number] Procedure: CT abdomen pelvis wo con Ordering Provider: Deb Parikh D.O. PROCEDURE: CT ABDOMEN PELVIS WO CON INDICATIONS: new onset renal failure with elevated liver enzymes TECHNIQUE: Axial sections were acquired from the lung bases to the pubic symphysis. Coronal and sagittal reformats were performed. For radiation dose reduction, the following was used: automated exposure control, adjustment of mA and/or kV according to patient size. COMPARISON: 08/04/2024. FINDINGS: Image quality: Diagnostic. Lower Chest: No significant findings. URINARY: Right Kidney: No stones or hydronephrosis. Right Ureter: No hydroureter. Left Kidney: No stones or hydronephrosis. Left Ureter: No hydroureter. Bladder: Normal wall thickness. No stones. ABDOMEN: Liver: No contour-deforming solid mass. Gallbladder: Gallbladder is surgically absent. Biliary ducts: No biliary dilation. Pancreas: No ductal dilation. Spleen: Size is within normal limits. Adrenal Glands: No adrenal nodules. Stomach and Bowel: Postsurgical changes are noted in right lower quadrant with surgical anastomosis appears grossly intact. There is no bowel obstruction or abnormal bowel wall thickening. Appendix is visualized and is within normal limits. No abscess collection. Peritoneum: No abnormal intraperitoneal fluid. No free air. Ventral Wall: No hernia. Abdominal Nodes: No enlarged retroperitoneal or mesenteric lymph nodes. Vessels: Aorta and inferior vena cava are normal in size. PELVIS: Pelvic Organs: Unremarkable. Pelvic Nodes: Unremarkable. Miscellaneous: No inguinal hernias are seen. Bones: No aggressive appearing bony lesions. IMPRESSION: 1. No obstructing renal stones or hydronephrosis. Normal appearing urinary bladder. 2. No bowel obstruction or abnormal bowel wall thickening. Postsurgical changes in right lower quadrant involving distal small bowel loops with intact surgical anastomosis. No evidence of acute appendicitis or diverticulitis. No free fluid or free air. MDM Narrative Medical decision making narrative: 59-year-old female with a history of diabetes hypertension hypothyroidism hyperlipidemia presenting for abnormal lab work states that she had lab work outpatient and was told that her kidney functions were extremely abnormal therefore presented to the ED. she states that she had this lab work performed because she has been having issues with her blood pressure after losing weight on Mounjaro for the past 2 years. She states that her blood pressure has been low over the past week has been following her primary care doctor for this, patient has ISAÍAS possibly due to ATN in the setting of new hypotension however patient currently not actually hypotensive here map of 73. Patient agreeable to transfer to facility with Nephrology and new onset ISAÍAS/renal failure Patient had lab work performed here, patient's chemistry panel remarkable for creatinine of 7.95, previous was 0.8, GFR 5 previous was greater than 60. Patient had Klein catheter placed for urine output, CT scan not showing any obstructive renal stones hydrocephalus normal-appearing bladder no other abnormalities noted, given patient an acute renal failure will require transfer to a higher level care with Nephrology 1900: Discussed case with electrical contacts adjuster Dr. Luna, he is stating that at this time patient not needing urgent or emergent dialysis is requesting repeat BMP after hydration, he states that if still significantly elevated would agree to transfer with consult. No other further recommendations needed at this time 2020: Repeat BMP now with creatinine 7.29 from 7.95, CO2 now 14, chloride now 111, BUN now 6 however given persistently elevated creatinine we will require transfer to higher level care reach out back to [facility] 3.15.25 @ 0115 : Had discussion with Dr. Bal at [facility] who accepts the admission/transfer Discharge Plan Departure Patient Disposition: [facility] Clinical Impression: Acute renal failure Prescriptions: No Action Mounjaro 12.5 mg/0.5 mL pen injector 12.5 mg SUBCUT QWEEK estradiol 0.75 mg/0.75 gram (0.1%) gel in packet 1 packet transdermal DAILY rosuvastatin 40 mg tablet 40 mg PO DAILY metoprolol succinate 100 mg tablet extended release 24 hr 100 mg PO DAILY MULTIVITAMIN (One Daily Multivitamin) 1 tab PO Q DAY Qty: 0 levothyroxine 125 mcg tablet See Rx Instructions .ROUTE .COMPLEX Qty: 90 3RF Dose Instruction: TAKE 1 TABLET DAILY Rx Instructions: TAKE 1 TABLET DAILY metformin 500 mg tablet extended release 24 hr 500 mg PO BID Qty: 180 0RF Rx Instructions: Take one tablet by mouth twice a day. lisinopril 10 mg tablet 10 mg PO DAILY Qty: 90 0RF (DME) Respironics Dreamstation CPAP Qty: 1 Dose Instruction: As directed Patient Comments: Pressure: 10-18 cmH2O DME: [facility] Rx Instructions: As directed Referrals: Jocy Morgan DO [Primary Care Provider] -
[2024-11-10] MEDS: SODIUM CHLORIDE 0.9% 1,000 ML 1000 ML IV (19:00)
[2024-11-10 20:19] LABS: BUN Creatinine Ratio 7.7 (6-22); Blood Urea Nitrogen 56 mg/dL (7-17); Calcium 8.6 mg/dL (8.4-10.2); Carbon Dioxide 14 mmol/L (22-32); Chloride 111 mmol/L (98-107); Estimated Glomerular Filt Rate 6 mL/min (>60); Glucose 80 mg/dL (80-110); HEMOLYSIS 19 (0-50); Potassium 4.1 mmol/L (3.4-5.1); Sodium 138 mmol/L (137-145)
[2024-11-11] VITALS: BP 86/42; PULSE 88; RESP 20; O2SAT 100
[2024-11-11 00:04] VITALS: BP 89/45; PULSE 86; RESP 23; O2SAT 100
--- NOTE | 2024-11-11 00:08 | PC.NURSE ---
blood pressure 89/45, Pt reports feeling dizzy, provider aware, new orders received
[2024-11-11] MEDS: SODIUM CHLORIDE 0.9% 1,000 ML 1000 ML IV (00:12)
[2024-11-11 00:30] VITALS: BP 92/47; PULSE 86; RESP 13; O2SAT 100
[2024-11-11 01:00] VITALS: BP 93/48; PULSE 89; RESP 24; O2SAT 100
[2024-11-11 01:30] VITALS: BP 99/52; PULSE 89; RESP 27; O2SAT 100
[2024-11-11 02:00] VITALS: BP 98/51; PULSE 90; RESP 30; O2SAT 99
== END 2024-11-11 02:07 | disposition short-term general hospital (02) ==
PROVIDERS: Emergency Medicine; Emergency Provider Student in an Organized Health Care Education/Training Program; PCP Obstetrics & Gynecology
DX: N17.9 Acute kidney failure, unspecified (principal)
CPT/HCPCS: 36415; 74176; 80048; 80053; 81001; 83690; 84443; 85025; 93005; 96360; 96361; 99284

== ENCOUNTER 2024-11-16 16:14 | Inpatient (IN) | payer BC, SELFPAY ==
[2019-08-25 10:42] VITALS: BMI 47.2
[2024-11-16 16:20] VITALS: BP 143/64; PULSE 72; RESP 18; TEMP 36.4; O2SAT 98; BMI 45.1
--- NOTE | 2024-11-16 16:25 | EKG_ITS ---
[place] [id number] [place] [id number] Test Date: 2024-11-16 Pat Name: Negar Husain Department: [facility] Room: Gender: Female [employer] Supervisor: TOM : 1965 Requested By: Order Number: [id number] Reading MD: Rogelio Crocker MD Measurements Intervals [place] Rate: 59 P: 43 [place]: 152 QRS: 23 QRSD: 68 T: 43 QT: 426 QTc: 421 Interpretive Statements Sinus bradycardia Low voltage QRS Electronically Signed On 11-17-2024 6:42:14 PDT by Rogelio Crocker MD
[2024-11-16 16:59] LABS: Appearance Urine UA CLEAR; Bilirubin Urine UA NEGATIVE (NEGATIVE); Color Urine UA YELLOW; Glucose Urine UA NEGATIVE (Negative); Ketones Urine UA NEGATIVE (NEGATIVE); Leukocyte Esterase Urine UA NEGATIVE (NEGATIVE); Nitrite Urine UA NEGATIVE (Negative); Occult Blood Urine UA 3+ (Negative); Protein Urine UA 1+ (Negative); Urobilinogen Urine UA 0.2 E.U./dL (0.2)
[2024-11-16 17:00] LABS: Bacteria Urine Few (2-10); Culture Indicated Urine Cult Not Indicated; RBC Urine 30-100/HPF (0-5/HPF); Squamous Epithelial Cell Urine 1-5 /HPF (0-5/HPF); Urine Volume 10mL (spun); WBC Urine 0-1/HPF (0-5/HPF)
[2024-11-16 17:35] LABS: Add Manual Diff / Slide Review NO; Basophils Absolute Auto 100 /uL (0-100); Eosinophils Absolute Auto 100 /uL (0-450); Eosinophils Percent Auto 1.5 % (2-4); Hematocrit 34.2 % (36-46); Hemoglobin 11.5 g/dL (12.0-16.0); Lymphocytes Absolute Auto 1300 /uL (1100-4500); Lymphocytes Percent Auto 20.8 % (25-40); Mean Corpuscular HGB Conc 33.7 % (30-36); Mean Corpuscular Hemoglobin 30.9 PG (26-34); Mean Corpuscular Volume 91.7 fL (80-100); Monocytes Absolute Auto 600 /uL (0-900); Monocytes Percent Auto 9.1 % (3-14); Neutrophils Absolute Auto 4300 /uL (1500-7000); Neutrophils Percent Auto 67.6 % (50-75); Platelet Count 138 X10^3/uL (150-400); Red Blood Cell Count 3.73 X10^6/uL (4.0-5.2); Red Cell Distribution Width 14.8 % (11.6-14.8); White Blood Cell Count 6.3 X10^3/uL (4.5-11.0)
[2024-11-16 17:52] LABS: Alanine Aminotransferase 59 IU/L (<35); Albumin 3.9 g/dL (3.5-5.0); Albumin Globulin Ratio 1.5 (1.0-2.8); Alkaline Phosphatase 62 U/L (38-126); Aspartate Aminotransferase 44 IU/L (14-36); BUN Creatinine Ratio 12.2 (6-22); Bilirubin Total 1.3 mg/dL (0.2-1.3); Blood Urea Nitrogen 34 mg/dL (7-17); Carbon Dioxide 24 mmol/L (22-32); Chloride 105 mmol/L (98-107); Estimated Glomerular Filt Rate 19 mL/min (>60); Globulin 2.6 g/dL (1.7-4.1); Glucose 95 mg/dL (80-110); HEMOLYSIS < 15 (0-50); Lipase 179 U/L (23-300); Potassium 3.7 mmol/L (3.4-5.1); Sodium 139 mmol/L (137-145); Total Protein 6.5 g/dL (6.3-8.2)
--- NOTE | 2024-11-16 18:21 | ED.FEMALEGU ---
HPI - Female Genitourinary General Chief complaint: Urogenital-Female Stated complaint: urinary issue, cramping Time Seen by Provider: 11/16/24 17:48 History of Present Illness HPI Narrative: Patient is a 59-year-old female with past medical history of hypertension diabetes hyperlipidemia presents to the emergency department from home for evaluation of hematuria, abdominal cramping, she states that she was recently discharged from [facility] on Wednesday for her ISAÍAS she was to follow up with her primary care doctor tomorrow. She states that when she was discharge her creatinine was 4.0 with tolerating secretion was having normal urine no hematuria. No pain, she states that today she started having decreased urinary output noticed some gross hematuria with some lower abdominal cramping. She states that she was told that her ISAÍAS was secondary to her Mounjaro and her antihypertensive she has remained off of this. She is only currently on her levothyroxine. She denies any other symptoms at this time. Related Data Home Medications Medication Instructions Recorded Confirmed MULTIVITAMIN (One Daily 1 tab PO Q DAY ##0 08/17/11 10/08/24 Multivitamin) RespirRealiuss Dreamstation CPAP #1 ea 01/12/19 10/08/24 estradiol 0.75 mg/0.75 gram (0.1%) 1 packet transdermal DAILY 10/08/24 10/08/24 transdermal gel packet metoprolol succinate 100 mg 100 mg PO DAILY 10/08/24 10/08/24 tablet,extended release 24 hr rosuvastatin 40 mg tablet 40 mg PO DAILY 10/08/24 10/08/24 tirzepatide 12.5 mg/0.5 mL 12.5 mg SUBCUT QWEEK 10/08/24 10/08/24 subcutaneous pen injector (Mounjaro) Previous Rx's Medication Instructions Recorded lisinopril 10 mg tablet 10 mg PO DAILY #90 tabs 02/27/21 levothyroxine 125 mcg tablet See Rx Instructions .Route 10/21/21 .COMPLEX #90 tabs metformin 500 mg tablet,extended 500 mg PO BID #180 tabs 12/02/21 release 24 hr Allergies Allergy/AdvReac Type Severity Reaction Status Date / Time hydrocodone [HYDROCODONE] Allergy Severe HALLUCINATI Verified 10/08/24 11:58 ON aspirin [ASPIRIN] Allergy Mild RED SPOTS Verified 10/08/24 11:58 ALL OVER HER BODY ibuprofen [IBUPROFEN] Allergy Mild RED SPOTS Verified 10/08/24 11:58 ALL OVER HER BODY nut - unspecified Allergy Verified 10/08/24 11:58 Review of Systems Review of Systems Narrative: General: Denies fever, chills, weight loss HEENT: Denies headache, eye drainage, eye irritation, head trauma, sore throat, voice change Cardiovascular: Denies any chest pain, palpitations, tachycardia Respiratory: Denies any shortness of breath, cough, wheeze, stridor GI/: Positive abdominal pain, hematuria denies nausea, vomiting, diarrhea, bright red blood per rectum, melanotic stools, urinary frequency, urinary retention, dysuria, MSK: Denies any joint pain, muscle pains, swelling Skin: Denies any rashes, lesions, discoloration Neuro: Denies any headache, lightheadedness, dizziness, fainting, weakness Psych: Denies SI/HI Patient History Medical History Acquired hypothyroidism (2004) Fatty liver Hyperlipidemia Hypertension (1989) Hypothyroid Impaired fasting glucose Kidney stones Left ventricular hypertrophy (07/2019) Left ventricular outflow obstruction (07/2019) Morbid obesity with BMI of 40.0-44.9, adult Obstructive sleep apnea of adult Post hysterectomy menopause Right shoulder pain Type 2 diabetes mellitus (10/2020) Surgical History S/P S/P small bowel resection Status post laparoscopic cholecystectomy Family History Other Cancer Exam Narrative Exam Narrative: General: Cooperative, comfortable, well-developed, not in acute distress HEENT: Normocephalic, atraumatic, PERRLA, normal sclera, eyelids normal, Neck: Active full range of motion, atraumatic Chest: Normal to inspection, negative crepitus, no overlying erythema ecchymosis Respiratory: Normal respiratory effort, not in acute respiratory distress, clear to auscultation bilaterally negative cough, wheeze, tachypnea, rhonchi, rales Cardiology: Regular rate rhythm negative gallop, murmur, rubs GI/: Normal to inspection, soft, nonrigid, no tenderness to palpation, exam deferred MSK: Full range of active range of motion of all 4 extremities, atraumatic Skin: No rashes lesions noted Neuro: Alert awake oriented x3, moves all 4 extremities spontaneously, cranial nerves intact, able to answer all questions appropriately follows commands appropriately Psych: Cooperative, negative suicidal or homicidal ideations Initial Vital Signs Initial Vital Signs: Vital Signs Temperature 97.6 F 11/16/24 16:20 Pulse Rate 72 11/16/24 16:20 Respiratory Rate 18 11/16/24 16:20 Blood Pressure 143/64 H 11/16/24 16:20 Pulse Oximetry 98 11/16/24 16:20 Oxygen Delivery Method Room Air 11/16/24 16:20 Course Orders Ordered: ED Orders 11/16/24 16:25 EKG-12 Lead Stat 11/16/24 16:42 Urinalysis and Microscopic Stat 11/16/24 17:27 Complete Blood Count AUTO DIFF Stat Comprehensive Metabolic Panel Stat Lipase Stat 11/16/24 18:23 CT abdomen pelvis wo con Stat Ondansetron HCl (Ondansetron 4 Mg/2 Ml Inj) 4 mg IV NOW PRN PRN Reason: Nausea And Vomiting Ondansetron HCl (Ondansetron 4 Mg Odt) 4 mg PO NOW PRN PRN Reason: Nausea And Vomiting Discontinued Medications Sodium Chloride (Normal Saline 0.9%) 1,000 mls @ 1,000 mls/hr IV BOLUS ONE Stop: 11/16/24 19:22 Last Infusion: 11/16/24 19:50 Dose: Infused Documented By: Admin: 11/16/24 18:39 Dose: 1,000 mls/hr Documented By: SINDY Vital Signs Vital signs: Vital Signs - 8 hr 11/16/24 16:20 Temperature 97.6 F Pulse Rate 72 Respiratory Rate 18 Blood Pressure 143/64 H Pulse Oximetry 98 Oxygen Delivery Method Room Air MDM - Female Genitourinary Differential Diagnosis Differential diagnosis: Likely urinary tract infection and cystitis Lab Data 11/16/24 17:27 11/16/24 17:27 Labs: Lab Results 11/16/24 11/16/24 Range/Units 16:42 17:27 WBC 6.3 (4.5-11.0) X10^3/uL RBC 3.73 L (4.0-5.2) X10^6/uL Hgb 11.5 L (12.0-16.0) g/dL Hct 34.2 L (36-46) % MCV 91.7 (80-100) fL MCH 30.9 (26-34) PG MCHC 33.7 (30-36) % RDW 14.8 (11.6-14.8) % Plt Count 138 L (150-400) X10^3/uL Neut % (Auto) 67.6 (50-75) % Lymph % (Auto) 20.8 L (25-40) % [place] % (Auto) 9.1 (3-14) % Eos % (Auto) 1.5 L (2-4) % Baso % (Auto) 1.0 (0-2) % Neut # (Auto) 4300 (8136-0745) /uL Lymph # (Auto) 1300 (8182-5725) /uL [place] # (Auto) 600 (0-900) /uL Eos # (Auto) 100 (0-450) /uL Baso # (Auto) 100 (0-100) /uL Sodium 139 (137-145) mmol/L Potassium 3.7 (3.4-5.1) mmol/L Chloride 105 (98-107) mmol/L Carbon Dioxide 24 (22-32) mmol/L BUN 34 H (7-17) mg/dL Creatinine 2.79 H (0.52-1.04) mg/dL Estimated GFR 19 L (>60) mL/min BUN/Creatinine Ratio 12.2 (6-22) Glucose 95 (80-110) mg/dL Calcium 9.0 (8.4-10.2) mg/dL Total Bilirubin 1.3 (0.2-1.3) mg/dL AST 44 H (14-36) IU/L ALT 59 H (<35) IU/L Alkaline Phosphatase 62 (38-126) U/L Total Protein 6.5 (6.3-8.2) g/dL Albumin 3.9 (3.5-5.0) g/dL Globulin 2.6 (1.7-4.1) g/dL Albumin/Globulin Ratio 1.5 (1.0-2.8) Lipase 179 D (23-300) U/L Urine Color Yellow Urine Appearance Clear Urine pH 6.0 (4.5-8.0) Ur Specific [place] 1.010 (1.000-1.035) Urine Protein 1+ H (Negative) Urine Glucose (UA) Negative (Negative) g/dL Urine Ketones Negative (NEGATIVE) Urine Occult Blood 3+ H (Negative) Urine Nitrate Negative (Negative) Urine Bilirubin Negative (NEGATIVE) Urine Urobilinogen 0.2 (0.2) E.U./dL Ur Leukocyte Esterase Negative (NEGATIVE) Urine RBC 30-100/hpf H (0-5/HPF) Urine WBC 0-1/hpf (0-5/HPF) Ur Squamous Epith Cells 1-5 /hpf (0-5/HPF) Urine Bacteria Few (2-10) H (None) Ur Culture Indicated? Cult not indicated Vol Urine Centrifuged 10ml (spun) Imaging Data CT scan - abdomen/pelvis: Radiologist's Impression: [address] [address] [address] Scan Report Signed Patient: Negar Husain MR#: [id number] : 1965 Acct:[id number] Age/Sex: 59 / F Date of Service: 11/16/24 Loc: ED Accession Number: [id number] Procedure: CT abdomen pelvis wo con Ordering Provider: Edinson Wood D.O. PROCEDURE: CT ABDOMEN PELVIS WO CON INDICATIONS: Abdominal cramping, history of recent ISAÍAS, hematuria TECHNIQUE: Axial sections were acquired from the lung bases to the pubic symphysis. Coronal and sagittal reformats were performed. For radiation dose reduction, the following was used: automated exposure control, adjustment of mA and/or kV according to patient size. COMPARISON: [facility], CT, CT ABDOMEN PELVIS WO CON, 11/10/2024, 17:31. FINDINGS: Image quality: Diagnostic. Lower Chest: No significant findings. URINARY: Right Kidney: No stones or hydronephrosis. Right Ureter: No hydroureter. Left Kidney: No stones or hydronephrosis. Left Ureter: No hydroureter. Bladder: Normal wall thickness. No stones. ABDOMEN: Liver: No contour-deforming solid mass. Gallbladder: Status post cholecystectomy. Biliary ducts: No biliary dilation. Pancreas: No ductal dilation. Spleen: Size is within normal limits. Adrenal Glands: No adrenal nodules. Stomach and Bowel: Moderate colonic stool. Normal appendix. Small bowel loops are nondilated. Patent anastomosis in the lower abdomen. Peritoneum: No abnormal intraperitoneal fluid. No free air. Ventral Wall: No hernia. Abdominal Nodes: No enlarged retroperitoneal or mesenteric lymph nodes. Vessels: Aorta and inferior vena cava are normal in size. PELVIS: Pelvic Organs: Anterior positioning of the uterus, which may be adherent to the anterior abdominal wall. Pelvic Nodes: Unremarkable. Miscellaneous: No inguinal hernias are seen. Bones: Multilevel degenerative changes in the included spine. IMPRESSION: No obstructing stones or hydronephrosis. No acute abnormality is seen in the abdomen or pelvis. ECG Data Interpretation: EKG interpreted by ED physician sinus bradycardia 59 beats per minute QTC [address] changes no STEMI MDM Narrative Medical decision making narrative: 59-year-old female with a past medical history of acute renal failure, hypothyroidism, hypertension, diabetes presents to the emergency department from home for evaluation of hematuria lower abdominal cramping. She was recently seen here by me in transferred out for an acute renal failure. She was discharged on Wednesday and is supposed to have a follow up appointment with her primary care doctor however she started developing hematuria as well as lower abdominal cramping therefore decided come into the ED for further evaluation treatment. Patient's urinalysis just showing hematuria, patient hemoglobin 11.5. Patient's creatinine 2.79, BUN 34 potassium 3.7 Patient states that the pie dough roller stated that her ISAÍAS was secondary to all of her medications. She states that she was discharged home on only her levothyroxine, she states that she has not on any antihypertensives or her Mounjaro any longer. She states that she did get discharged from [facility] with a creatinine of 4.0. She states that she has had slight decreased urinary output today. Otherwise no other symptoms. CT scan did not show any acute findings, given patient is still with elevated ISAÍAS requiring hydration patient will be admitted for fluid hydration. The patient's management plan was discussed Dr. Villa, who agrees to admit the patient to their service and assumes care of this patient at this time. Full admission orders will be placed by the primary team. Discharge Plan Departure Patient Disposition: Admitted as Observation Clinical Impression: ISAÍAS (acute kidney injury) Prescriptions: No Action Mounjaro 12.5 mg/0.5 mL pen injector 12.5 mg SUBCUT QWEEK estradiol 0.75 mg/0.75 gram (0.1%) gel in packet 1 packet transdermal DAILY rosuvastatin 40 mg tablet 40 mg PO DAILY metoprolol succinate 100 mg tablet extended release 24 hr 100 mg PO DAILY MULTIVITAMIN (One Daily Multivitamin) 1 tab PO Q DAY Qty: 0 levothyroxine 125 mcg tablet See Rx Instructions .ROUTE .COMPLEX Qty: 90 3RF Dose Instruction: TAKE 1 TABLET DAILY Rx Instructions: TAKE 1 TABLET DAILY metformin 500 mg tablet extended release 24 hr 500 mg PO BID Qty: 180 0RF Rx Instructions: Take one tablet by mouth twice a day. lisinopril 10 mg tablet 10 mg PO DAILY Qty: 90 0RF (DME) Respironics Dreamstation CPAP Qty: 1 Dose Instruction: As directed Patient Comments: Pressure: 10-18 cmH2O DME: [facility] Rx Instructions: As directed Referrals: Jocy Morgan DO [Primary Care Provider] -
[2024-11-16] MEDS: SODIUM CHLORIDE 0.9% 1,000 ML 1000 ML IV (18:39)
--- NOTE | 2024-11-16 18:45 | PC.NURSE ---
Pt recently dc from after ISAÍAS. Has f/u with urologyu and pcp. Pt reports having continued bloody urine with clots and abd pain. States that she has been tired and feeling generally unwell. A&Ox4.
[2024-11-16 19:26] VITALS: PULSE 63; O2SAT 98
[2024-11-16 19:49] VITALS: BP 120/68; PULSE 67; RESP 17; O2SAT 100
--- NOTE | 2024-11-16 20:43 | P.HP_ITS ---
History of Present Illness History of Present Illness Chief complaint: urinary issue, cramping Narrative: 59 y/o with PMH of ADI on CPAP, obesity, type 2 diabetes, hepatic steatosis, hypothyroidism, HLD, migraine, presenting today with hematuria. She was recently seen in the ER with ISAÍAS and Cr > 7 and was transferred to [facility]. Diagnosed with ISAÍAS from hypotension, taken off Lisinopril, Toprol XL and metformin and discharged home with Cr >4. Today she noticed decreased urine output and blood in the urine. This is a second episode of gross hematuria. In September seen by urology, from that visit on 10/09/2024: -She is referred for an episode of gross hematuria. She reports a hard fall directly onto her back on the stairs of her boat on the day of and the next morning woke up with fire engine red blood in the urine. She had a CT abdomen and pelvis w contrast ordered by her quality improvement engineer, done on 08/04/24 without evidence of any urolithiasis, hydronephrosis, solid renal mass, or bladder wall abnormalities. She has not seen any recurrence of hematuria since that time. No flank pain. UA today clear. No h/o tobacco use. No family h/o malignancies. - She has a history of abdominal supracervical hysterectomy with left salpingo- oophorectomy and cervical cautery in 2006, cervical cautery with bladder sling adhesiolysis in 2008, exploratory laparoscopy, enterotomy with repair and lysis of lesions in 2009. -Plan: F/U prn Very pleasant 59 y.o. female presenting with gross hematuria once after a fall on a set of stairs, without recurrence and negative UA today. CT abd/pelvis w contrast on 08/04/24 was negative. We reviewed hematuria, differential etiologies, standard work up involving CT IVP, cystoscopy, and their respective risks and benefits. Overall, I am not significantly concerned by her present clinical picture with trauma as likely etiology. After our discussion, joint decision to hold off on workup at this time however she is strongly encouraged to call/pursue the workup should she have recurrent hematuria. Cr on admission < 3. Upon admission to floor w/o hematuria, dysuria, fever or chills. Placed in observation. [facility] Medical History Kidney stones Type 2 diabetes mellitus (10/2020) Acquired hypothyroidism (2004) Fatty liver Right shoulder pain Left ventricular outflow obstruction (07/2019) Left ventricular hypertrophy (07/2019) Hyperlipidemia Hypertension (1989) Morbid obesity with BMI of 40.0-44.9, adult Obstructive sleep apnea of adult Impaired fasting glucose Post hysterectomy menopause Hypothyroid Surgical History Status post laparoscopic cholecystectomy S/P small bowel resection S/P Family History Other Cancer Social History household members: spouse and children Smoking Status: Never smoker second hand exposure: Yes (as a child) alcohol intake: current substance use type: does not use Meds Home Medications and Allergies Home Medications Medication Instructions Recorded Confirmed Type Respironics Dreamstation CPAP #1 ea 01/12/19 11/16/24 History levothyroxine 88 mcg tablet 88 mcg PO QAM 11/16/24 11/16/24 History Allergies Allergy/AdvReac Type Severity Reaction Status Date / Time hydrocodone [HYDROCODONE] Allergy Severe HALLUCINATI Verified 10/08/24 11:58 ON aspirin [ASPIRIN] Allergy Mild RED SPOTS Verified 10/08/24 11:58 ALL OVER HER BODY ibuprofen [IBUPROFEN] Allergy Mild RED SPOTS Verified 10/08/24 11:58 ALL OVER HER BODY nut - unspecified Allergy Verified 10/08/24 11:58 Review of Systems Review of Systems Narrative: General - generalized weakness, w/o fever or chills UG - w/o dysuria, w/o flank pain GI - nausea, w/o vomiting, w/o abdominal pain CVS - negative RS - negative Exam Vital Signs (past 8 hours): - 11/16/24 16:20 11/16/24 19:26 11/16/24 19:49 Temperature 97.6 F Pulse Rate 72 63 Respiratory Rate 18 Blood Pressure 143/64 H 120/68 Pulse Oximetry 98 98 Oxygen Delivery Method Room Air 11/16/24 19:49 Temperature Pulse Rate 67 Respiratory Rate 17 Blood Pressure Pulse Oximetry 100 Oxygen Delivery Method Room Air Oxygen Delivery Method Room Air Narrative Exam Narrative: General - in no distress CVS - RRR RS -- normal respiratory effort Neuro - lucid, w/o deficits GI/ - obese, non-tender abdomen Objective ECG Impression: Sinus rhythm, [address] scan - abdomen: Radiologist's impression: No obstructing stones or hydronephrosis. No acute abnormality is seen in the abdomen or pelvis. Labs 11/16/24 17:27 11/16/24 17:27 Labs: Laboratory Results - last 24 hr 11/16/24 11/16/24 16:42 17:27 WBC 6.3 RBC 3.73 L Hgb 11.5 L Hct 34.2 L MCV 91.7 MCH 30.9 MCHC 33.7 RDW 14.8 Plt Count 138 L Neut % (Auto) 67.6 Lymph % (Auto) 20.8 L [place] % (Auto) 9.1 Eos % (Auto) 1.5 L Baso % (Auto) 1.0 Neut # (Auto) 4300 Lymph # (Auto) 1300 [place] # (Auto) 600 Eos # (Auto) 100 Baso # (Auto) 100 Sodium 139 Potassium 3.7 Chloride 105 Carbon Dioxide 24 BUN 34 H Creatinine 2.79 H Estimated GFR 19 L BUN/Creatinine Ratio 12.2 Glucose 95 Calcium 9.0 Total Bilirubin 1.3 AST 44 H ALT 59 H Alkaline Phosphatase 62 Total Protein 6.5 Albumin 3.9 Globulin 2.6 Albumin/Globulin Ratio 1.5 Lipase 179 D Urine Color Yellow Urine Appearance Clear Urine pH 6.0 Ur Specific [place] 1.010 Urine Protein 1+ H Urine Glucose (UA) Negative Urine Ketones Negative Urine Occult Blood 3+ H Urine Nitrate Negative Urine Bilirubin Negative Urine Urobilinogen 0.2 Ur Leukocyte Esterase Negative Urine RBC 30-100/hpf H Urine WBC 0-1/hpf Ur Squamous Epith Cells 1-5 /hpf Urine Bacteria Few (2-10) H Ur Culture Indicated? Cult not indicated Vol Urine Centrifuged 10ml (spun) Assessment & Plan Assessment and plan (1) Hematuria: Status: Acute (2) ISAÍAS (acute kidney injury): Status: Acute (3) Hypertension: Qualifiers: Hypertension type: primary hypertension Qualified Code(s): I10 - Essential (primary) hypertension Status: Chronic (4) Type 2 diabetes mellitus: Qualifiers: Diabetes mellitus mcc insulin use: without intermodal owner operator truck driver use Diabetes mellitus complication status: without complication Qualified Code(s): E11.9 - Type 2 diabetes mellitus without complications Status: Chronic (5) Acquired hypothyroidism: Status: Chronic Assessment & Plan narrative: Hematuria - minor - recurrent - referral to urology ISAÍAS - ATN from hypotension - off metoprolol, lisinopril and metformin - improving, BMP in AM DM - CCD, SS - off metformin and tirzepatide for ISAÍAS HTN - off Toprol XL 100 mg daily and Lisinopril 10 mg daily - not hypertensive DVT prophylaxis - SCDs Time-Based Coding :: [TOTAL MINUTES] spent with patient and on the chart (including review of chart, obtaining history, exam, reviewing outside data, placing orders, documenting exam and treatment plan, and counseling patient) on [DATE].
[2024-11-16 21:00] VITALS: BP 124/63; PULSE 63; RESP 18; TEMP 36.2; O2SAT 99
[2024-11-16 21:49] VITALS: BMI 46.4
[2024-11-16] MEDS: SODIUM CHLORIDE 0.9% 1,000 ML 100 ML IV (21:49)
[2024-11-17 03:07] VITALS: BP 106/60; PULSE 60; RESP 16; TEMP 36.4; O2SAT 98
[2024-11-17 04:36] LABS: Add Manual Diff / Slide Review NO; Basophils Absolute Auto 100 /uL (0-100); Basophils Percent Auto 1.1 % (0-2); Eosinophils Absolute Auto 100 /uL (0-450); Eosinophils Percent Auto 1.6 % (2-4); Hematocrit 29.2 % (36-46); Lymphocytes Absolute Auto 1600 /uL (1100-4500); Lymphocytes Percent Auto 28.7 % (25-40); Mean Corpuscular HGB Conc 34.2 % (30-36); Mean Corpuscular Hemoglobin 31.3 PG (26-34); Mean Corpuscular Volume 91.5 fL (80-100); Monocytes Absolute Auto 400 /uL (0-900); Monocytes Percent Auto 7.8 % (3-14); Neutrophils Absolute Auto 3300 /uL (1500-7000); Neutrophils Percent Auto 60.8 % (50-75); Platelet Count 116 X10^3/uL (150-400); Red Blood Cell Count 3.19 X10^6/uL (4.0-5.2); White Blood Cell Count 5.4 X10^3/uL (4.5-11.0)
[2024-11-17 04:55] LABS: BUN Creatinine Ratio 12.1 (6-22); Blood Urea Nitrogen 29 mg/dL (7-17); Calcium 8.2 mg/dL (8.4-10.2); Carbon Dioxide 24 mmol/L (22-32); Chloride 109 mmol/L (98-107); Estimated Glomerular Filt Rate 23 mL/min (>60); Glucose 91 mg/dL (80-110); HEMOLYSIS < 15 (0-50); Potassium 3.1 mmol/L (3.4-5.1); Sodium 140 mmol/L (137-145)
[2024-11-17] MEDS: LEVOTHYROXINE 88 MCG TABLET PO (07:44)
[2024-11-17 08:00] VITALS: BP 97/54; PULSE 69; RESP 15; TEMP 35.8; O2SAT 95
--- NOTE | 2024-11-17 11:25 | P.PN_ITS ---
Subjective Subjective Date Patient Seen: 11/17/24 Time Patient Seen: 11:25 Interval history: Chief complaint: Bright red blood in the urine gross hematuria and lower abdominal cramping following discharge from [facility] for acute kidney injury end gross hematuria History of present illness: 59-year-old female who was recently discharged from [facility] evaluation for acute kidney injury. At that institution creatinine improved from 7 down to below 4. 11/16/2024, 48 hours after discharge from [facility] patient noticed lower abdominal cramping and bright red urine came to the emergency department for evaluation at [facility]. Findings the hospital notable for BUN of 34 creatinine 2.8 the remainder of the comprehensive metabolic and hemogram were normal noncontrast CT of the abdomen and pelvis was also normal Patient was placed in observation after a bolus of normal saline and maintenance fluids at 100 cc/hour Hospital course: 11/17: Overnight no further episodes of hematuria and none this morning Review of systems: No fever chills or dysuria No headache diplopia per vision No chest pain No shortness a breath No nausea vomiting For the physical exam: Alert and cogent female no acute distress HEENT unremarkable new line Assessment & Plan Gross hematuria: -no further clots or gross hematuria after last night -No new symptoms of cramping -BUN creatinine improved to 29 and 2.39 -Urinalysis shows red blood cells but no nitrates and no white blood cells and no bacteria -Case discussed with Urology Dr. Taveras regarding gross hematuria -Preferred is to wait for the BUN creatinine deescalate down to normal and then perform CT imaging with contrast of the urinary system Low risk DVT Full Code Blue Time-Based Coding :: 35 minutes spent with patient and on the chart (including review of chart, obtaining history, exam, reviewing outside data, placing orders, documenting exam and treatment plan, and counseling patient) on 11/17/2024. Exam Vital Signs (past 8 hours): - 11/17/24 08:00 Temperature 96.5 F L Pulse Rate 69 Respiratory Rate 15 Blood Pressure 97/54 L Pulse Oximetry 95 Oxygen Flow Rate 0 Oxygen Delivery Method Room Air Oxygen Flow Rate 0 Objective Labs 11/17/24 04:05 11/17/24 04:05 Labs: Laboratory Results - last 24 hr 11/16/24 11/16/24 11/17/24 16:42 17:27 04:05 WBC 6.3 5.4 RBC 3.73 L 3.19 L Hgb 11.5 L 10.0 L Hct 34.2 L 29.2 L MCV 91.7 91.5 MCH 30.9 31.3 MCHC 33.7 34.2 RDW 14.8 15.0 H Plt Count 138 L 116 L Neut % (Auto) 67.6 60.8 Lymph % (Auto) 20.8 L 28.7 [place] % (Auto) 9.1 7.8 Eos % (Auto) 1.5 L 1.6 L Baso % (Auto) 1.0 1.1 Neut # (Auto) 4300 3300 Lymph # (Auto) 1300 1600 [place] # (Auto) 600 400 Eos # (Auto) 100 100 Baso # (Auto) 100 100 Sodium 139 140 Potassium 3.7 3.1 L Chloride 105 109 H Carbon Dioxide 24 24 BUN 34 H 29 H Creatinine 2.79 H 2.39 H Estimated GFR 19 L 23 L BUN/Creatinine Ratio 12.2 12.1 Glucose 95 91 Calcium 9.0 8.2 L Total Bilirubin 1.3 AST 44 H ALT 59 H Alkaline Phosphatase 62 Total Protein 6.5 Albumin 3.9 Globulin 2.6 Albumin/Globulin Ratio 1.5 Lipase 179 D Urine Color Yellow Urine Appearance Clear Urine pH 6.0 Ur Specific [place] 1.010 Urine Protein 1+ H Urine Glucose (UA) Negative Urine Ketones Negative Urine Occult Blood 3+ H Urine Nitrate Negative Urine Bilirubin Negative Urine Urobilinogen 0.2 Ur Leukocyte Esterase Negative Urine RBC 30-100/hpf H Urine WBC 0-1/hpf Ur Squamous Epith Cells 1-5 /hpf Urine Bacteria Few (2-10) H Ur Culture Indicated? Cult not indicated Vol Urine Centrifuged 10ml (spun) [facility] Medical History Kidney stones Type 2 diabetes mellitus (10/2020) Acquired hypothyroidism (2004) Fatty liver Right shoulder pain Left ventricular outflow obstruction (07/2019) Left ventricular hypertrophy (07/2019) Hyperlipidemia Hypertension (1989) Morbid obesity with BMI of 40.0-44.9, adult Obstructive sleep apnea of adult Impaired fasting glucose Post hysterectomy menopause Hypothyroid Surgical History Status post laparoscopic cholecystectomy S/P small bowel resection S/P Family History Other Cancer Social History household members: spouse and children Smoking Status: Never smoker second hand exposure: Yes (as a child) alcohol intake: current substance use type: does not use Assessment & Plan Time-Based Coding :: [TOTAL MINUTES] spent with patient and on the chart (including review of chart, obtaining history, exam, reviewing outside data, placing orders, documenting exam and treatment plan, and counseling patient) on [DATE]. Quality VTE Deep Vein Thrombosis/Pulmonary Embolism Present on Admission: No
[2024-11-17 12:00] VITALS: BP 129/75; PULSE 626; RESP 14; TEMP 35.8; O2SAT 99
[2024-11-17 12:51] LABS: BUN Creatinine Ratio 10.9 (6-22); Blood Urea Nitrogen 26 mg/dL (7-17); Calcium 8.7 mg/dL (8.4-10.2); Carbon Dioxide 24 mmol/L (22-32); Chloride 106 mmol/L (98-107); Estimated Glomerular Filt Rate 23 mL/min (>60); Glucose 134 mg/dL (80-110); HEMOLYSIS < 15 (0-50); Potassium 3.4 mmol/L (3.4-5.1); Sodium 139 mmol/L (137-145)
[2024-11-17 16:00] VITALS: BP 123/64; PULSE 59; RESP 14; TEMP 35.9; O2SAT 100
[2024-11-17] MEDS: SODIUM CHLORIDE 0.9% 1,000 ML 100 ML IV (16:35)
[2024-11-17 20:00] VITALS: BP 121/76; PULSE 60; RESP 17; TEMP 36.2; O2SAT 100
[2024-11-18] VITALS: BP 136/77; PULSE 52; RESP 19; TEMP 36.3; O2SAT 100
[2024-11-18] MEDS: SODIUM CHLORIDE 0.9% 1,000 ML 100 ML IV ×2 (02:13→12:19)
[2024-11-18 04:00] VITALS: BP 110/56; PULSE 64; RESP 17; TEMP 36.6; O2SAT 97
[2024-11-18 05:13] LABS: Add Manual Diff / Slide Review NO; Basophils Absolute Auto 100 /uL (0-100); Basophils Percent Auto 1.7 % (0-2); Eosinophils Absolute Auto 100 /uL (0-450); Eosinophils Percent Auto 1.2 % (2-4); Hematocrit 28.3 % (36-46); Hemoglobin 9.7 g/dL (12.0-16.0); Lymphocytes Absolute Auto 1400 /uL (1100-4500); Lymphocytes Percent Auto 27.7 % (25-40); Mean Corpuscular HGB Conc 34.2 % (30-36); Mean Corpuscular Hemoglobin 31.2 PG (26-34); Mean Corpuscular Volume 91.4 fL (80-100); Monocytes Absolute Auto 300 /uL (0-900); Monocytes Percent Auto 6.5 % (3-14); Neutrophils Absolute Auto 3100 /uL (1500-7000); Neutrophils Percent Auto 62.9 % (50-75); Platelet Count 100 X10^3/uL (150-400); Red Cell Distribution Width 14.8 % (11.6-14.8); White Blood Cell Count 4.9 X10^3/uL (4.5-11.0)
[2024-11-18 05:20] LABS: Alanine Aminotransferase 40 IU/L (<35); Albumin Globulin Ratio 1.3 (1.0-2.8); Alkaline Phosphatase 50 U/L (38-126); Aspartate Aminotransferase 33 IU/L (14-36); BUN Creatinine Ratio 11.1 (6-22); Blood Urea Nitrogen 24 mg/dL (7-17); Calcium 8.2 mg/dL (8.4-10.2); Carbon Dioxide 23 mmol/L (22-32); Chloride 109 mmol/L (98-107); Estimated Glomerular Filt Rate 25 mL/min (>60); Globulin 2.3 g/dL (1.7-4.1); Glucose 94 mg/dL (80-110); HEMOLYSIS < 15 (0-50); Potassium 3.2 mmol/L (3.4-5.1); Sodium 139 mmol/L (137-145); Total Protein 5.3 g/dL (6.3-8.2)
[2024-11-18] MEDS: LEVOTHYROXINE 88 MCG TABLET PO (06:41)
[2024-11-18 08:00] VITALS: BP 120/56; PULSE 61; RESP 14; TEMP 36.4; O2SAT 96
[2024-11-18] MEDS: POTASSIUM CHLORIDE 20 MEQ TAB 40 MEQ PO ×2 (08:03→12:31)
--- NOTE | 2024-11-18 10:30 | PM.PN.IH.1 ---
Subjective Subjective Date Patient Seen: 11/18/24 Time Patient Seen: 08:12 Interval history: Chief complaint: Bright red blood in the urine gross hematuria and lower abdominal cramping following discharge from [facility] Wednesday for acute kidney injury end gross hematuria History of present illness: 59-year-old female who was recently discharged from [facility] evaluation for acute kidney injury. At that institution creatinine improved from 7 down to below 4. 11/16/2024, 48 hours after discharge from [facility] patient noticed lower abdominal cramping and bright red urine came to the emergency department for evaluation at [facility]. Findings the hospital notable for BUN of 34 creatinine 2.8 the remainder of the comprehensive metabolic and hemogram were normal noncontrast CT of the abdomen and pelvis was also normal Patient was placed in observation after a bolus of normal saline and maintenance fluids at 100 cc/hour Hospital course: 11/17: Overnight no further episodes of hematuria and none this morning 11/18: No further hematuria. No chest pain or breathing problems, abdominal pain, constipation or diarrhea. Exam Vital Signs (past 8 hours): - 11/18/24 04:00 11/18/24 07:00 11/18/24 08:00 Temperature 97.9 F 97.5 F L Pulse Rate 64 61 Respiratory Rate 17 14 Blood Pressure 110/56 L 120/56 L Pulse Oximetry 97 96 Oxygen Delivery Method Room Air Oxygen Flow Rate 0 Oxygen Delivery Method Room Air Oxygen Flow Rate 0 Narrative Exam Narrative: GENERAL: This is a well-nourished, well-developed patient, in no apparent distress. EYES: Pupils equal round and reactive. Extraocular motions intact. No scleral icterus. No injection or drainage. ENT: Mucous membranes pink and moist. NECK: Trachea midline. No JVD, bruits or lymphadenopathy. Supple, nontender, no meningeal signs. CARDIOVASCULAR: Regular rate and rhythm without murmurs, gallops, or rubs. RESPIRATORY: Clear to auscultation. GASTROINTESTINAL: Abdomen soft, non-tender, nondistended. EXTREMITIES: No clubbing, cyanosis, or edema. BACK: Nontender without deformity or crepitance. No flank tenderness. NEUROLOGIC: Alert, oriented, speech fluent, full upper and lower motor strength, no focal deficits evident. DERMATOLOGIC: No rashes or skin lesions. Objective Labs 11/18/24 04:16 11/18/24 04:16 Labs: Laboratory Results - last 24 hr 11/17/24 11/18/24 12:03 04:16 WBC 4.9 RBC 3.10 L Hgb 9.7 L Hct 28.3 L MCV 91.4 MCH 31.2 MCHC 34.2 RDW 14.8 Plt Count 100 L Neut % (Auto) 62.9 Lymph % (Auto) 27.7 [place] % (Auto) 6.5 Eos % (Auto) 1.2 L Baso % (Auto) 1.7 Neut # (Auto) 3100 Lymph # (Auto) 1400 [place] # (Auto) 300 Eos # (Auto) 100 Baso # (Auto) 100 Sodium 139 139 Potassium 3.4 3.2 L Chloride 106 109 H Carbon Dioxide 24 23 BUN 26 H 24 H Creatinine 2.38 H 2.17 H Estimated GFR 23 L 25 L BUN/Creatinine Ratio 10.9 11.1 Glucose 134 H 94 Calcium 8.7 8.2 L Total Bilirubin 1.0 AST 33 ALT 40 H Alkaline Phosphatase 50 Total Protein 5.3 L Albumin 3.0 L Globulin 2.3 Albumin/Globulin Ratio 1.3 [facility] Medical History Acquired hypothyroidism (2004) Fatty liver Hyperlipidemia Hypertension (1989) Hypothyroid Impaired fasting glucose Kidney stones Left ventricular hypertrophy (07/2019) Left ventricular outflow obstruction (07/2019) Morbid obesity with BMI of 40.0-44.9, adult Obstructive sleep apnea of adult Post hysterectomy menopause Right shoulder pain Type 2 diabetes mellitus (10/2020) Surgical History S/P S/P small bowel resection Status post laparoscopic cholecystectomy Family History Other Cancer Social History household members: spouse and children Smoking Status: Never smoker second hand exposure: Yes (as a child) alcohol intake: current substance use type: does not use Assessment & Plan Assessment & Plan narrative: Gross hematuria -no further clots or gross hematuria after last night -No new symptoms of cramping Acute kidney injury -BUN creatinine improved to 29 and 2.39 -Urinalysis shows red blood cells but no nitrates and no white blood cells and no bacteria -Case discussed on admission with Urology Dr. Taveras regarding gross hematuria -continue IVF, monitor renal function -Preferred is to wait for the BUN creatinine deescalate down to normal and then perform CT imaging with contrast of the urinary system Low risk DVT Full Code Blue Quality VTE Deep Vein Thrombosis/Pulmonary Embolism Present on Admission: No IH PROFEE Twisting Frame Fixer Document charge(s): No Charge Codes Subsequent inpatient/observation care: [id number]
[2024-11-18 12:00] VITALS: BP 122/67; PULSE 57; RESP 14; TEMP 35.9; O2SAT 100
--- NOTE | 2024-11-18 14:14 | CM.DANOTE ---
Patient is a 59 yo female who was admitted OBS 11/16/24 and switch to INPT Status 11/18/24 for Hematuria/ISAÍAS. Pt has BCBS OUT [facility] for insurance and her PCP is Jocy Morgan. EMR was reviewed. Per MD, pt recently at [facility] for hematuria and discharged home and then had further hematuria and admitted for treatment. Per Urologist Consult, recommendation of waiting for normal labs and then plan of CT with contrast for the urinary system. Pt not yet stable for discharge home today. SW met briefly bedside with pt and explained role and observed pt ambulating hallways independently and she confirms she lives at home in [place] with with spouse and is active and independent at baseline. Pt drives and does not use DME and no hx of HH or SNF. Pt preference is home when medically stable and does not anticipate any needs. Plan: SW to follow closely for plan of discharge home when stable and any further identified discharge planning needs. JARETT Khoury
--- NOTE | 2024-11-18 18:29 | PC.NURSE ---
183 Pt complaining of nai leg swelling and tenderness, pt states no pain only tender to the touch. Both legs with 1+ pitting edema, notified
--- NOTE | 2024-11-18 18:33 | PC.NURSE ---
1645 placed a call to Tele language teacher with update. Orders noted to reintubate the patient urgently. 1710 ED MD here, RSI meds given and pt reintubated with 7.5 24@ the teeth. 14F OG tube placed per protocol and connected to lis. Soft wrist restraints applied, Propofol initiated per previous order, Precedex continues @ 0.8mcg/min. CXR obtained and Vent setting manged per RT.
[2024-11-18] MEDS: FUROSEMIDE 20 MG/2 ML VIAL IV (19:47)
[2024-11-18 20:00] VITALS: BP 125/63; PULSE 59; RESP 16; TEMP 36.2; O2SAT 100
[2024-11-18] MEDS: SODIUM CHLORIDE 0.9% 1,000 ML 75 ML IV (23:12)
[2024-11-19] VITALS: BP 116/44; PULSE 69; RESP 20; TEMP 36.3; O2SAT 93
[2024-11-19 00:05] VITALS: BP 112/54
[2024-11-19] MEDS: LEVOTHYROXINE 88 MCG TABLET PO (06:11)
[2024-11-19 06:32] LABS: Add Manual Diff / Slide Review NO; Basophils Absolute Auto 0 /uL (0-100); Basophils Percent Auto 0.8 % (0-2); Eosinophils Absolute Auto 100 /uL (0-450); Eosinophils Percent Auto 1.8 % (2-4); Hematocrit 28.9 % (36-46); Lymphocytes Absolute Auto 1600 /uL (1100-4500); Lymphocytes Percent Auto 33.6 % (25-40); Mean Corpuscular HGB Conc 34.4 % (30-36); Mean Corpuscular Hemoglobin 31.6 PG (26-34); Mean Corpuscular Volume 91.8 fL (80-100); Monocytes Absolute Auto 300 /uL (0-900); Monocytes Percent Auto 7.1 % (3-14); Neutrophils Absolute Auto 2600 /uL (1500-7000); Neutrophils Percent Auto 56.7 % (50-75); Platelet Count 113 X10^3/uL (150-400); Red Blood Cell Count 3.15 X10^6/uL (4.0-5.2); White Blood Cell Count 4.6 X10^3/uL (4.5-11.0)
[2024-11-19 06:41] LABS: BUN Creatinine Ratio 9.3 (6-22); Blood Urea Nitrogen 18 mg/dL (7-17); Calcium 8.3 mg/dL (8.4-10.2); Carbon Dioxide 20 mmol/L (22-32); Chloride 112 mmol/L (98-107); Estimated Glomerular Filt Rate 29 mL/min (>60); Glucose 87 mg/dL (80-110); HEMOLYSIS < 15 (0-50); Potassium 3.7 mmol/L (3.4-5.1); Sodium 140 mmol/L (137-145)
[2024-11-19 06:49] LABS: NT-proBNP (BNP-Adult 18+) 919 pg/mL (<125)
[2024-11-19 08:00] VITALS: BP 133/76; PULSE 69; RESP 18; TEMP 36.4; O2SAT 97
[2024-11-19 12:00] VITALS: BP 126/76; PULSE 60; RESP 18; TEMP 36.5; O2SAT 100
--- NOTE | 2024-11-19 12:31 | P.PN_ITS ---
Subjective Subjective Date Patient Seen: 11/19/24 Time Patient Seen: 11:45 Interval history: Chief complaint: Bright red blood in the urine gross hematuria and lower abdominal cramping following discharge from [facility] Wednesday for acute kidney injury end gross hematuria History of present illness: 59-year-old female who was recently discharged from [facility] evaluation for acute kidney injury. At that institution creatinine improved from 7 down to below 4. 11/16/2024, 48 hours after discharge from [facility] patient noticed lower abdominal cramping and bright red urine came to the emergency department for evaluation at [facility]. Findings the hospital notable for BUN of 34 creatinine 2.8 the remainder of the comprehensive metabolic and hemogram were normal noncontrast CT of the abdomen and pelvis was also normal Patient was placed in observation after a bolus of normal saline and maintenance fluids at 100 cc/hour Hospital course: 11/17: Overnight no further episodes of hematuria and none this morning 11/18: No further hematuria. No chest pain or breathing problems, abdominal pain, constipation or diarrhea. 11/19: She developed leg edema yesterday responding to furosemide 20mg IV x 1 and reducing IVF to 75ml/hr. No hematuria, shortness of breath or chest pain. Exam Vital Signs (past 8 hours): - 11/19/24 08:00 11/19/24 12:00 Temperature 97.6 F 97.7 F Pulse Rate 69 60 Respiratory Rate 18 18 Blood Pressure 133/76 126/76 Pulse Oximetry 97 100 Oxygen Flow Rate 0 0 Oxygen Delivery Method Room Air Oxygen Flow Rate 0 Narrative Exam Narrative: GENERAL: This is a well-nourished, well-developed patient, in no apparent distress. EYES: Pupils equal round and reactive. Extraocular motions intact. No scleral icterus. No injection or drainage. ENT: Mucous membranes pink and moist. NECK: Trachea midline. No JVD, bruits or lymphadenopathy. Supple, nontender, no meningeal signs. CARDIOVASCULAR: Regular rate and rhythm without murmurs, gallops, or rubs. RESPIRATORY: Clear to auscultation. GASTROINTESTINAL: Abdomen soft, non-tender, nondistended. EXTREMITIES: No clubbing, cyanosis, or edema. BACK: Nontender without deformity or crepitance. No flank tenderness. NEUROLOGIC: Alert, oriented, speech fluent, full upper and lower motor strength, no focal deficits evident. DERMATOLOGIC: No rashes or skin lesions. Objective Labs 11/19/24 05:18 11/19/24 05:18 Labs: Laboratory Results - last 24 hr 11/19/24 05:18 WBC 4.6 RBC 3.15 L Hgb 10.0 L Hct 28.9 L MCV 91.8 MCH 31.6 MCHC 34.4 RDW 15.0 H Plt Count 113 L Neut % (Auto) 56.7 Lymph % (Auto) 33.6 [place] % (Auto) 7.1 Eos % (Auto) 1.8 L Baso % (Auto) 0.8 Neut # (Auto) 2600 Lymph # (Auto) 1600 [place] # (Auto) 300 Eos # (Auto) 100 Baso # (Auto) 0 Sodium 140 Potassium 3.7 Chloride 112 H Carbon Dioxide 20 L BUN 18 H Creatinine 1.93 H Estimated GFR 29 L BUN/Creatinine Ratio 9.3 Glucose 87 Calcium 8.3 L NT-Pro-B Natriuret Pep 919 H [facility] Medical History Acquired hypothyroidism (2004) Fatty liver Hyperlipidemia Hypertension (1989) Hypothyroid Impaired fasting glucose Kidney stones Left ventricular hypertrophy (07/2019) Left ventricular outflow obstruction (07/2019) Morbid obesity with BMI of 40.0-44.9, adult Obstructive sleep apnea of adult Post hysterectomy menopause Right shoulder pain Type 2 diabetes mellitus (10/2020) Surgical History S/P S/P small bowel resection Status post laparoscopic cholecystectomy Family History Other Cancer Social History household members: spouse and children Smoking Status: Never smoker second hand exposure: Yes (as a child) alcohol intake: current substance use type: does not use Assessment & Plan Assessment & Plan narrative: Gross hematuria -no further clots or gross hematuria after last night -plan to obtain CT abdomen-pelvis with contrast tomorrow if renal function nearing normal -consult urology tomorrow for further workup Acute kidney injury -BUN creatinine improved to 1.93 -Urinalysis shows red blood cells but no nitrates and no white blood cells and no bacteria -Case discussed on admission with Urology Dr. Taveras regarding gross hematuria -continue IVF, monitor renal function -Preferred is to wait for the BUN creatinine deescalate down towards normal and then perform CT imaging with contrast of the urinary system Low risk DVT Full Code Blue Quality VTE Deep Vein Thrombosis/Pulmonary Embolism Present on Admission: No IH PROFEE Painter Helper Document charge(s): No Charge Codes Subsequent inpatient/observation care: [id number]
--- NOTE | 2024-11-19 14:33 | CM.DPC ---
DCP Cont: Per MD, pt continues to ambulate independently and still waiting for her labs to improve with her renal function for her to participate in CT with contrast of her urinary system due to her multiple admissions for hematuria. Possible CT tomorrow Mon if pt stable. Clarissa Zambrano, RACKET STRINGER
[2024-11-19 16:00] VITALS: BP 122/72; PULSE 54; RESP 15; TEMP 35.7; O2SAT 100
[2024-11-19 20:00] VITALS: BP 118/62; PULSE 62; RESP 16; TEMP 36.2; O2SAT 100
[2024-11-19] MEDS: NYSTATIN POWDER 15GM 1 APPLIC TOP (21:28)
[2024-11-20] MEDS: SODIUM CHLORIDE 0.9% 1,000 ML 75 ML IV (02:28)
[2024-11-20 04:00] VITALS: BP 120/63; PULSE 61; RESP 16; TEMP 35.9; O2SAT 98
[2024-11-20 05:34] LABS: Add Manual Diff / Slide Review NO; Basophils Absolute Auto 0 /uL (0-100); Basophils Percent Auto 0.7 % (0-2); Eosinophils Absolute Auto 100 /uL (0-450); Eosinophils Percent Auto 1.5 % (2-4); Hematocrit 28.3 % (36-46); Hemoglobin 9.7 g/dL (12.0-16.0); Lymphocytes Absolute Auto 1500 /uL (1100-4500); Lymphocytes Percent Auto 31.4 % (25-40); Mean Corpuscular HGB Conc 34.3 % (30-36); Mean Corpuscular Hemoglobin 31.4 PG (26-34); Mean Corpuscular Volume 91.5 fL (80-100); Monocytes Absolute Auto 300 /uL (0-900); Monocytes Percent Auto 6.3 % (3-14); Neutrophils Absolute Auto 2900 /uL (1500-7000); Neutrophils Percent Auto 60.1 % (50-75); Platelet Count 109 X10^3/uL (150-400); White Blood Cell Count 4.8 X10^3/uL (4.5-11.0)
[2024-11-20 05:50] LABS: BUN Creatinine Ratio 8.3 (6-22); Blood Urea Nitrogen 15 mg/dL (7-17); Calcium 8.5 mg/dL (8.4-10.2); Carbon Dioxide 18 mmol/L (22-32); Chloride 111 mmol/L (98-107); Estimated Glomerular Filt Rate 32 mL/min (>60); Glucose 90 mg/dL (80-110); HEMOLYSIS < 15 (0-50); Potassium 3.5 mmol/L (3.4-5.1); Sodium 138 mmol/L (137-145)
[2024-11-20] MEDS: LEVOTHYROXINE 88 MCG TABLET PO (06:10)
--- NOTE | 2024-11-20 07:55 | P.PN_ITS ---
Subjective Subjective Interval history: S: Interval history: Chief complaint: Bright red blood in the urine gross hematuria and lower abdominal cramping following discharge from [facility] Wednesday for acute kidney injury end gross hematuria History of present illness: 59-year-old female who was recently discharged from [facility] evaluation for acute kidney injury. At that institution creatinine improved from 7 down to below 4. 11/16/2024, 48 hours after discharge from [facility] patient noticed lower abdominal cramping and bright red urine came to the emergency department for evaluation at [facility]. Findings the hospital notable for BUN of 34 creatinine 2.8 the remainder of the comprehensive metabolic and hemogram were normal noncontrast CT of the abdomen and pelvis was also normal Patient was placed in observation after a bolus of normal saline and maintenance fluids at 100 cc/hour Hospital course: 11/17: Overnight no further episodes of hematuria and none this morning 11/18: No further hematuria. No chest pain or breathing problems, abdominal pain, constipation or diarrhea. 11/19: She developed leg edema yesterday responding to furosemide 20mg IV x 1 and reducing IVF to 75ml/hr. No hematuria, shortness of breath or chest pain. Exam Vital Signs (past 8 hours): - 11/20/24 04:00 Temperature 96.6 F L Pulse Rate 61 Respiratory Rate 16 Blood Pressure 120/63 Pulse Oximetry 98 Oxygen Flow Rate 0 Oxygen Delivery Method Room Air Oxygen Flow Rate 0 Narrative Exam Narrative: NAD, alert and oriented. Fluent speech. Lungs are clear, normal rate and effort. Heart is regular, no murmur gallop or rub. Abdomen is soft, non distended. Extremities are free of edema. Objective Labs 11/20/24 04:32 11/20/24 04:32 Labs: Laboratory Results - last 24 hr 11/20/24 04:32 WBC 4.8 RBC 3.10 L Hgb 9.7 L Hct 28.3 L MCV 91.5 MCH 31.4 MCHC 34.3 RDW 15.0 H Plt Count 109 L Neut % (Auto) 60.1 Lymph % (Auto) 31.4 Stark % (Auto) 6.3 Eos % (Auto) 1.5 L Baso % (Auto) 0.7 Neut # (Auto) 2900 Lymph # (Auto) 1500 [place] # (Auto) 300 Eos # (Auto) 100 Baso # (Auto) 0 Sodium 138 Potassium 3.5 Chloride 111 H Carbon Dioxide 18 L BUN 15 Creatinine 1.80 H Estimated GFR 32 L BUN/Creatinine Ratio 8.3 Glucose 90 Calcium 8.5 PFSH Medical History Kidney stones Type 2 diabetes mellitus (10/2020) Acquired hypothyroidism (2004) Fatty liver Right shoulder pain Left ventricular outflow obstruction (07/2019) Left ventricular hypertrophy (07/2019) Hyperlipidemia Hypertension (1989) Morbid obesity with BMI of 40.0-44.9, adult Obstructive sleep apnea of adult Impaired fasting glucose Post hysterectomy menopause Hypothyroid Surgical History Status post laparoscopic cholecystectomy S/P small bowel resection S/P Family History Other Cancer Social History household members: spouse and children Smoking Status: Never smoker second hand exposure: Yes (as a child) alcohol intake: current substance use type: does not use Assessment & Plan Assessment & Plan narrative: 1. Gross hematuria -no further clots or gross hematuria after last night -plan to obtain CT abdomen-pelvis with contrast tomorrow if renal function nearing normal -consult urology tomorrow for further workup 2. Acute kidney injury -BUN creatinine improved to 1.93 -Urinalysis shows red blood cells but no nitrates and no white blood cells and no bacteria -Case discussed on admission with Urology Dr. Taveras regarding gross hematuria -continue IVF, monitor renal function -Preferred is to wait for the BUN creatinine deescalate down towards normal and then perform CT imaging with contrast of the urinary system 3. DM2. 4. Hypothyroidism. 5. ADI. 6. LVO. 7. Steatohepatitis. Low risk DVT Full Code Blue Time-Based Coding :: [TOTAL MINUTES] spent with patient and on the chart (including review of chart, obtaining history, exam, reviewing outside data, placing orders, documenting exam and treatment plan, and counseling patient) on [DATE]. Quality VTE Deep Vein Thrombosis/Pulmonary Embolism Present on Admission: No
[2024-11-20 08:00] VITALS: BP 113/47; PULSE 75; RESP 21; TEMP 35.9; O2SAT 94
[2024-11-20 12:00] VITALS: BP 130/72; PULSE 57; RESP 18; TEMP 36.1; O2SAT 98
--- NOTE | 2024-11-20 13:31 | P.DS_ITS ---
History of Present Illness History of Present Illness Chief complaint: urinary issue, cramping Narrative: From H&P: 59 y/o with PMH of ADI on CPAP, obesity, type 2 diabetes, hepatic steatosis, hypothyroidism, HLD, migraine, presenting today with hematuria. She was recently seen in the ER with ISAÍAS and Cr > 7 and [address] transferred to [facility]. Diagnosed with ISAÍAS from hypotension, taken off Lisinopril, Toprol XL and metformin and discharged home with Cr >4. Today she noticed decreased urine output and blood in the urine. This is a second episode of gross hematuria. In September seen by urology, from that visit on 10/09/2024: -She is referred for an episode of gross hematuria. She reports a hard fall directly onto her back on the stairs of her boat on the day of and the next morning woke up with fire engine red blood in the urine. She had a CT abdomen and pelvis w contrast ordered by her server manager, done on 08/04/24 without evidence of any urolithiasis, hydronephrosis, solid renal mass, or bladder wall abnormalities. She has not seen any recurrence of hematuria since that time. No flank pain. UA today clear. No h/o tobacco use. No family h/o malignancies. - She has a history of abdominal supracervical hysterectomy with left salpingo- oophorectomy and cervical cautery in 2006, cervical cautery with bladder sling adhesiolysis in 2008, exploratory laparoscopy, enterotomy with repair and lysis of lesions in 2009. -Plan: F/U prn Very pleasant 59 y.o. female presenting with gross hematuria once after a fall on a set of stairs, without recurrence and negative UA today. CT abd/pelvis w contrast on 08/04/24 was negative. We reviewed hematuria, differential etiologies, standard work up involving CT IVP, cystoscopy, and their respective risks and benefits. Overall, I am not significantly concerned by her present clinical picture with trauma as likely etiology. After our discussion, joint decision to hold off on workup at this time however she is strongly encouraged to call/pursue the workup should she have recurrent hematuria. Cr on admission < 3. Upon admission to floor w/o hematuria, dysuria, fever or chills. Placed in observation. Discharge Providers Provider Date of admission: 11/18/24 10:47 Discharge Date: 11/20/24 Primary care physician: Jocy Morgan DO Consults: 11/17/24 11:52 Consult to Urology Routine Comment: Consulting Provider: Lee Taveras Reason for consultation: Gross hematuria passing clots, possible recurring obstructive uropathy Discharge provider: Harrison Brizuela MD Summary Hospital Course Discharge Diagnosis: 1. Gross hematuria, present on admission and resolved. -no further clots or gross hematuria after last night 2. Acute kidney injury (recent [facility] admission with ATN), present on admission and slowly improving. -BUN creatinine improved to 1.93 -Urinalysis shows red blood cells but no nitrates and no white blood cells and no bacteria Hospital Course: 11/17: Overnight no further episodes of hematuria and none this morning 11/18: No further hematuria. No chest pain or breathing problems, abdominal pain, constipation or diarrhea. 11/19: She developed leg edema yesterday responding to furosemide 20mg IV x 1 and reducing IVF to 75ml/hr. No hematuria, shortness of breath or chest pain. 11/20: Mom improvement of creatinine. No gross hematuria. She was essentially diagnosed with a acute tubular necrosis [place] with a creatinine of over 7. Her baseline creatinine appears to be 0.80. We discussed the timeline of improvement for a TN and how we will require the next several weeks to see where her baseline actually lands. In the meantime she was no dyspnea but does have leg edema. I have encouraged her to let this began to auto diurese instead of using a diuretic. Have recommended a follow up lab with a BNP in the next 5 days, follow up with PCP within a week, and then Dr. Taveras will see her outpatient in the next 2 weeks. I did discuss delayed imaging with contrast given her significant renal injury and he agrees. Status at Discharge Cognitive/behavioral status at discharge: oriented Functional status at discharge: independent ambulation Overall status at discharge: patient is back to baseline Time Spent with Patient Time spent: Greater than 30 minutes Exam Vital Signs (past 8 hours): - 11/20/24 08:00 11/20/24 12:00 Temperature 96.7 F L 97.0 F L Pulse Rate 75 57 L Respiratory Rate 21 18 Blood Pressure 113/47 L 130/72 Pulse Oximetry 94 98 Oxygen Flow Rate 0 0 Oxygen Delivery Method Room Air Oxygen Flow Rate 0 Narrative Exam Narrative: NAD, alert and oriented. Fluent speech. Lungs are clear, normal rate and effort. Heart is regular, no murmur gallop or rub. Abdomen is soft, non distended. Extremities are with 1+ bilateral leg edema. Objective ECG Impression: Sinus bradycardia Low voltage QRS Imaging CT scan - abdomen: Radiologist's impression: NON_CONTRAST STUDY. IMPRESSION: No obstructing stones or hydronephrosis. No acute abnormality is seen in the abdomen or pelvis. Labs 11/20/24 04:32 11/20/24 04:32 Labs: Laboratory Results - last 24 hr 11/20/24 04:32 WBC 4.8 RBC 3.10 L Hgb 9.7 L Hct 28.3 L MCV 91.5 MCH 31.4 MCHC 34.3 RDW 15.0 H Plt Count 109 L Neut % (Auto) 60.1 Lymph % (Auto) 31.4 [place] % (Auto) 6.3 Eos % (Auto) 1.5 L Baso % (Auto) 0.7 Neut # (Auto) 2900 Lymph # (Auto) 1500 [place] # (Auto) 300 Eos # (Auto) 100 Baso # (Auto) 0 Sodium 138 Potassium 3.5 Chloride 111 H Carbon Dioxide 18 L BUN 15 Creatinine 1.80 H Estimated GFR 32 L BUN/Creatinine Ratio 8.3 Glucose 90 Calcium 8.5 [facility] Medical History Kidney stones Type 2 diabetes mellitus (10/2020) Acquired hypothyroidism (2004) Fatty liver Right shoulder pain Left ventricular outflow obstruction (07/2019) Left ventricular hypertrophy (07/2019) Hyperlipidemia Hypertension (1989) Morbid obesity with BMI of 40.0-44.9, adult Obstructive sleep apnea of adult Impaired fasting glucose Post hysterectomy menopause Hypothyroid Surgical History Status post laparoscopic cholecystectomy S/P small bowel resection S/P Family History Other Cancer Social History household members: spouse and children Smoking Status: Never smoker second hand exposure: Yes (as a child) alcohol intake: current substance use type: does not use Discharge Assessment & Plan Assessment and Plan Assessment: 1. Gross hematuria, present on admission and resolved. -no further clots or gross hematuria after last night 2. Acute kidney injury (recent [facility] admission with ATN), present on admission and slowly improving. -BUN creatinine improved to 1.93 -Urinalysis shows red blood cells but no nitrates and no white blood cells and no bacteria Plan of Treatment: Discharge home, PCP for BNP within a week. Dr. Taveras (urology) within the next 2 weeks. Discharge Plan Discharge Plan Patient Disposition: Home Provider Discharge Comment: Stable for discharge home with Urology follow up in 2 weeks, PCP in 1 week with a BMP this Wednesday. Nursing Discharge Comment: for lab draw on Wednesday, return to the hospital and check in at the registration desk and they will direct you from there. Discharge orders & Medications Prescriptions: Continued levothyroxine 88 mcg tablet 88 mcg PO QAM (DME) Respironics Dreamstation CPAP Qty: 1 Dose Instruction: As directed Patient Comments: Pressure: 10-18 cmH2O DME: [facility] Rx Instructions: As directed Follow up/Referrals: Lee Taveras DO [Physician] - 12/13/24 2:00 pm () Jocy Morgan DO [Primary Care Provider] - Other Ambulatory Orders: Basic Metabolic Panel (Routine) Timeframe: 1 Week Facility: [facility] - Location: Laboratory Ordered By: Harrison Brizuela Discharge Health Status Multidrug resistant organism: No MDRO Diet/Activity/Treatments Diet: Regular Activity: As tolerated. Visit Report/Discharge Packet Instructions: DI for Acute Kidney Injury Stand Alone Forms: Patient Portal/API Discharge Data Primary Care Provider: Jocy Morgan Quality VTE Deep Vein Thrombosis/Pulmonary Embolism Present on Admission: No
--- NOTE | 2024-11-20 16:02 | CM.DPC ---
DCP Discharge Home Per MD and Surgeon, pt's kidneys likely not currently able to tolerate contrast for CT and recommendation of discharge home and outpt f/u in the future and pt medically stable to d/c home with outpt f/u. No identified barriers to d/c. Per RN, discharge instructions provided and pt able to ambulate to POV. JARETT Khoury
== END 2024-11-20 15:53 | disposition home or self-care (01) | DRG 696 ==
LOC: ED 19:53 → AC 19:53
PROVIDERS: Emergency Medicine; Internal Medicine; Admitting Provider Internal Medicine; Emergency Provider Student in an Organized Health Care Education/Training Program; PCP Obstetrics & Gynecology; Referring Provider Student in an Organized Health Care Education/Training Program; Visit Provider Internal Medicine
DX: R31.0 Gross hematuria (principal); N17.0 Acute kidney failure with tubular necrosis; I10 Essential (primary) hypertension; E11.9 Type 2 diabetes mellitus without complications; G47.33 Obstructive sleep apnea (adult) (pediatric); E03.9 Hypothyroidism, unspecified; Z79.84 Long term (current) use of oral hypoglycemic drugs; Z79.890 Hormone replacement therapy
CPT/HCPCS: 36415; 74176; 80048; 80053; 81001; 82962; 83690; 83880; 85025; 93005; 93010; 96360; 99284; G0378; J1815; J1940

== ENCOUNTER → 2024-11-24 07:31 | Outpatient (CLI) | payer BC, SELFPAY ==
[2024-11-16 21:49] VITALS: BMI 46.4
[2024-11-24 10:00] LABS: BUN Creatinine Ratio 8.9 (6-22); Blood Urea Nitrogen 15 mg/dL (7-17); Carbon Dioxide 24 mmol/L (22-32); Chloride 107 mmol/L (98-107); Estimated Glomerular Filt Rate 34 mL/min (>60); Glucose 92 mg/dL (80-110); HEMOLYSIS < 15 (0-50); Potassium 3.7 mmol/L (3.4-5.1); Sodium 139 mmol/L (137-145)
== END ==
PROVIDERS: PCP Obstetrics & Gynecology; Referring Provider Hospitalist; Visit Provider Hospitalist
DX: N17.9 Acute kidney failure, unspecified (principal)
CPT/HCPCS: 36415; 80048

== ENCOUNTER → 2025-07-19 16:58 | Outpatient (CLI) | payer BC, SELFPAY ==
--- NOTE | 2025-07-19 16:59 | DI.MG.S_ITS ---
MM screening mammo BI: 07/19/2025. BI-RADS: 1 CLINICAL: 60-year old female for bilateral screening mammogram. Tyrer-Cuzick lifetime risk of 9.7%. No personal or first-degree family history of breast cancer. The patient had a prior left breast biopsy. PRIOR EXAMS 06/05/2024, 04/29/2023, 02/16/2022, 09/14/2018. MAMMOGRAPHY TECHNIQUE: 2D and 3D (tomosynthesis) digital mammographic views obtained, with additional images as needed for full coverage. Current study was also evaluated with a Computer Aided Detection (CAD) system. DENSITY B. There are scattered areas of fibroglandular density. MAMMOGRAPHY FINDINGS Bilateral: No suspicious mass, asymmetry, microcalcification, or other abnormality seen. IMPRESSION: * No evidence of malignancy. RECOMMENDATIONS Bilateral * Annual screening mammography. OVERALL ASSESSMENT CATEGORY BI-RADS-1: Negative. [employer] recommends annual screening mammography beginning at age 40 for women with average risk of breast cancer. ELECTRONICALLY SIGNED: Ynes Yepez M.D. on 07/22/2025 at 01:38:06 AM PT Interpreting Station ID: [id number]
== END ==
LOC: MAMMO 16:59
PROVIDERS: PCP Obstetrics & Gynecology; Referring Provider Obstetrics & Gynecology; Visit Provider Obstetrics & Gynecology
DX: Z12.31 Encounter for screening mammogram for malignant neoplasm of breast (principal)
CPT/HCPCS: 77063; 77067